=== PATIENT | female | born 1955 | race Two or more races ===

== ENCOUNTER 2025-06-20 08:07 | Outpatient (OUT) | payer BC, MEDICARE, SELFPAY ==
--- NOTE | 2025-06-20 | CT_ITS ---
The [address] [address] Patient Name: JUAN J DAMON MRN: [id number] date: 1955 Sex: F Assigned Patient Location: LAB Current Patient Location: LAB Accession/Order Number: [id number] Exam Date: 06/20/2025 09:54 Report Date: 06/20/2025 10:41 At the request of: SEBAS HARDY MD Procedure: CT abdomen pelvis wo/w con CT ABDOMEN AND PELVIS WITHOUT AND WITH CONTRAST CLINICAL DATA: Abdominal mass on examination. Carcinoid syndrome. COMPARISON: None Spiral images were obtained through the abdomen and pelvis before and after intravenous administration of 100 mL of Omnipaque 300. Patient also received oral contrast. This CT exam was performed using one or more following dose reduction techniques: Automated exposure control, adjustment of the mA and/or kV according to patient size, or use of iterative reconstruction technique. Limited cuts through the lung bases show no contributory pulmonary findings. There is a small hiatal hernia. Fatty infiltration of the liver is present. No calcified gallstones are seen. A 1 cm potential cyst is seen at the posterior inferior spleen. The pancreas and adrenal glands show no acute findings. There are no renal calculi precontrast. Following contrast administration, the renal nephrograms are symmetric. No hydronephrosis is noted. There is mild plaque at the aorta and iliac arteries. There are tiny lymph nodes. No ascites is seen. There is mild air and food debris within the stomach. There is apparent wall thickening at the gastric antrum. There is a small duodenal diverticulum. The small bowel loops are not distended. There is stool within the colon, greater on the right. Slight levoscoliotic curvature and degenerative changes are present at the spine Images through the pelvis show nondistended small bowel with some distal fecalization. The appendix is not definitely seen. There is a small amount of distal colonic stool. No diverticular disease is identified. The uterus is slightly levoverted and there is a lobulated contour and heterogeneity suggesting fibroid change. There is a 5.9 cm hypodense mass at the posterior cul-de-sac on the right. This is not a simple cyst based on Hounsfield measurements. The urinary bladder shows no abnormalities for the degree of distention. No ascites is seen. CT/CT abdomen pelvis wo/w con IMPRESSION: SMALL HIATAL HERNIA. APPARENT WALL THICKENING AT THE GASTRIC ANTRUM. CORRELATION IS RECOMMENDED TO ANY CORRESPONDING SYMPTOMS. FATTY LIVER. NO BOWEL OR URINARY TRACT OBSTRUCTION. SUSPECTED FIBROID UTERUS. MASS AT THE POSTERIOR COSTOPHRENIC ANGLE ON THE RIGHT, LIKELY OVARIAN IN ORIGIN. ULTRASOUND IS RECOMMENDED TO DETERMINE IF SOLID OR COMPLEX CYSTIC. Impression dictated by: Moni Bermeo M.D. 06/20/2025 10:41 AM Dictation Location: [place] [address] Electronically authenticated by: [id number] Y Date: 06/20/2025 10:41
[2025-06-20 08:56] LABS: Estimated GFR (African America >60 (>=60 mL/min/1.73m^2); Estimated GFR (Non-African Ame >60 (>=60 mL/min/1.73m^2)
== END 2025-06-20 08:08 | disposition home or self-care (01) ==
LOC: LAB 08:19
PROVIDERS: PCP Nurse Practitioner; Visit Provider Internal Medicine Cardiovascular Disease
DX: E34.00 Carcinoid syndrome, unspecified (principal)
CPT/HCPCS: 36415; 74178; 82565; 83835; Q9967

== ENCOUNTER 2025-06-25 05:12 | Outpatient (REF) | payer BC, MEDICARE, SELFPAY ==
--- OUTSIDE RECORDS SUMMARY | 2025-06-11 15:40 | XMS_ITS | Encounter Summary ---
Author Organization [facility] Address [address] [place] [address] Care Team Providers Care Avionics Supervisor Name Role Phone Unavailable Primary Care Provider Unavailabl e Reason for Visit * ReasonCommentsNew PatientPatient is here today to establish care as a new patient with cardiology. Patient recently had an abnormal Holter monitor, Patient denies chest pain, palpitations/racing heart, SOB/JOSUE, dizziness/ligh theaded, edemaHot FlashesHypertensionHyperlipidemiaSyncopePatient had a syncopal episode on the toilet Encounter Details DateTypeDepartmentCare Team (Latest Contact Info)Gekoqjcuarf55/10/2025 3:40 PM ESTOffice Visit [facility] [place] [facility] [address] [place] [address] Edgardo Hayes MD [address] [place] [phone] Syncope and collapse (Primary Dx); Hyperthermia; Abdominal mass, right upper quadrant Social History Tobacco UseTypesPacks/DayYears UsedDateSmoking Tobacco: NeverSmokeless Tobacco: Never Tobacco Cessation:Counseling Given: Not Answered CommentsUnknownSex and Gender InformationValueDate RecordedSex Assigned at JmwhdWhbuzw11/10/2025 3:32 PM ESTLegal DpsWwegvl33/13/2025 11:14 AM EDTGender IzhuyqsfAehvfl95/10/2025 3:32 PM ESTSexual OrientationHeterosexual or Straight 06/11/2025 3:32 PM ESTdocumented as of this encounter Last Filed Vital Signs Vital SignReadingTime TakenCommentsBlood Blkhxdme087/8911/05/2025 4:37 PM EST Ouihh6681 4:37 PM ESTTemperature--Respiratory Rate--Oxygen Mdxilniixu10% 06/11/2025 4:37 PM ESTInhaled Oxygen Concentration--Knvuiq24.5 kg (193 lb) 06/11/2025 4:21 PM YZYHonjga432.5 cm (5' 2 )06/11/2025 4:21 PM ESTBody Mass Index35.311 4:21 PM ESTdocumented in this encounter Functional Status * BPAnswerDate of GvhznmmcchRfsvup144/8906/11/2025 4:37 PM Jessica Kingsley MA * PulseAnswerDate of QtxpxisnrdHkafcj7665/10/2025 4:37 PM Jessica Kingsley MA * Audit Alcohol ScreeningQuestionAnswerDate of AssessmentAuthorHow often do you have a drink containing alcohol? 4:37 PM Jessica Kingsley MA * Patient PositionAnswerDate of QvnsjoogyqAdeifbXbleuhqr34/10/2025 4:37 PM Jessica Talavera MA * BPAnswerDate of RyebgyhcbfRxdqkp586/ 4:37 PM Jessica Kingsley MA * PulseAnswerDate of XlwvtjsmsgLoheyu4601/10/2025 4:37 PM Jessica Kingsley MA * JcM9QzfrhePqqs of FxkvzmkjlmBkcjik1270/10/2025 4:37 PM Jessica Kingsley MA * BP LocationAnswerDate of AssessmentAuthorRight arm06/11/2025 4:37 PM Jessica Talavera MA * Audit Alcohol ScreeningQuestionAnswerDate of AssessmentAuthorHow often do you have a drink containing alcohol? 4:37 PM Jessica Kingsley MA * Patient PositionAnswerDate of EcgoclwohbMfghheMttfivgr92/10/2025 4:37 PM Jessica Talavera MA documented as of this encounter Progress Notes * Edgardo Hayes MD - 06/11/2025 3:40 PM EST Subjective Patient ID: Becki Kaur is a 70 y.o. female who presents for New Patient (Patient is here todayto establish care as a new patient with cardiology. Patient recently had an abnormal Holter monitor, Patient denies chest pain, palpitations/racing heart, SOB/JOSUE, dizziness/lightheaded, edema), Hot Flashes, Hypertension, Hyperlipidemia, and Syncope (Patient had a syncopal episode on the toilet). Other than being tired, and not sleeping the way I should, OK No hot spell for 3-weeks now. Start from inside felt extremely hot, would stop taking off clothes. Years past menopause Had hot spells while wearing the monitor. Entire body. Skin not red. Over past several months. Had one sitting on the toilet and fainted. Holter reviewed by me: short bursts paroxysmal SVT without symptoms Hypertension Pertinent negatives include no chest pain or shortness of breath. Hyperlipidemia Pertinent negatives include no chest pain or shortness of breath. Syncope Associated symptoms include dizziness and light-headedness. Pertinent negatives include no chest pain. Review of Systems Respiratory: Positive for cough. Negative for chest tightness and shortness of breath. Cardiovascular: Positive for syncope. Negative for chest pain and leg swelling. Gastrointestinal: Negative for blood in stool. Genitourinary: Negative for hematuria and vaginal bleeding. Neurological: Positive for dizziness, syncope and light-headedness. Objective Visit Vitals BP 139/89 (BP Location: Right arm, Patient Position: Standing) Pulse 74 Physical Exam Constitutional: Appearance: Normal appearance. She is obese. HENT: Head: Normocephalic and atraumatic. Cardiovascular: Rate and Rhythm: Normal rate and regular rhythm. No extrasystoles are present. Chest Wall: PMI is not displaced. No thrill. Pulses: Carotid pulses are 2+ on the right side and 2+ on the left side. Radial pulses are 2+ on the right side and 2+ on the left side. Heart sounds: Normal heart sounds. Heart sounds not distant. No murmur heard. No friction rub. No gallop. Pulmonary: Effort: Pulmonary effort is normal. Breath sounds: Normal breath sounds. Abdominal: General: Abdomen is protuberant. Bowel sounds are normal. There is no distension or abdominal bruit. Palpations: Abdomen is soft. Hernia: No hernia is present. Comments: Fullness R upper abdomen Musculoskeletal: Right lower leg: No edema. Left lower leg: No edema. Skin: General: Skin is warm and dry. Neurological: General: No focal deficit present. Mental Status: She is alert and oriented to person, place, and time. Mental status is at baseline. Psychiatric: Mood and Affect: Mood normal. Behavior: Behavior normal. Thought Content: Thought content normal. Judgment: Judgment normal. EKG today: normal sinus rhythm, normal EKG Assessment/Plan Ms. Kaur has interesting history of intense hot flashes. This was associated with syncope while on toilet. Her Holter was not revealing despite 3-4 episodes during monitoring. These symptoms sound neuroendocrine in nature such as carcinoid syndrome or pheo. Will check urine for: 5-HIAA, metanephrines And plasma metanephrines Obtain CT abdomen with and without contrast Diagnosis Plan 1. Syncope and collapse ECG 12 lead unit performed Orders Placed This Encounter Procedures ECG 12 lead unit performed This back office order was created through the Back Office Visit Navigator section. Release to Patient: Immediately No results found for this or any previous visit (from the past 36 hours). No follow-ups on file. documented in this encounter Plan of Treatment DateTypeDepartmentCare Team (Latest Contact Info)Klruhngosnu02/22/2025 1:00 PM ESTOffice Visit [facility] [place] [facility] [address] [place] [address] Edgardo Hayes MD [address] [place] [phone] documented as of this encounter Procedures Procedure NamePriorityDate/TimeAssociated DiagnosisCommentsECG 12 LEAD UNIT LUTURXQBXMbpuzqg66/10/2025 4:13 PM EST Syncope and collapse documented in this encounter Results * ECG 12 lead unit performed (06/11/2025 4:13 PM EST)Specimen (Source)Anatomical Location / LateralityCollection Method / VolumeCollection TimeReceived Time Narrative Authorizing ProviderResult TypeResult StatusChristopher Freddy TOWNSENDECG ORDERABLES Final Result documented in this encounter Visit Diagnoses Diagnosis Syncope and collapse- Primary Hyperthermia Fever, unspecified Abdominal mass, right upper quadrant Abdominal or pelvic swelling, mass, or lump, right upper quadrant documented in this encounter
--- OUTSIDE RECORDS SUMMARY | 2025-06-11 15:40 | XMS_ITS | Encounter Summary ---
Author Organization [facility] Address [address] [facility] [place] [address] Care Team Providers Care Liability Analyst Name Role Phone Unavailable Primary Care Provider Unavailabl e Reason for Visit * ReasonCommentsNew PatientPatient is here today to establish care as a new patient with cardiology. Patient recently had an abnormal Holter monitor, Patient denies chest pain, palpitations/racing heart, SOB/JOSUE, dizziness/ligh theaded, edemaHot FlashesHypertensionHyperlipidemiaSyncopePatient had a syncopal episode on the toilet Encounter Details DateTypeDepartmentCare Team (Latest Contact Info)Dzdacalmpbo03/10/2025 3:40 PM ESTOffice Visit [facility] [address] [place] [address] Edgardo Hayes MD [address] [place] [phone] Syncope and collapse (Primary Dx); Hyperthermia; Abdominal mass, right upper quadrant Social History Tobacco UseTypesPacks/DayYears UsedDateSmoking Tobacco: NeverSmokeless Tobacco: Never Tobacco Cessation:Counseling Given: Not Answered CommentsUnknownSex and Gender InformationValueDate RecordedSex Assigned at QhyszNxexlg66/10/2025 3:32 PM ESTLegal LhkCtjnzd51/13/2025 11:14 AM EDTGender ClyrmwkhWgiusq91/10/2025 3:32 PM ESTSexual OrientationHeterosexual or Straight 06/11/2025 3:32 PM ESTdocumented as of this encounter Last Filed Vital Signs Vital SignReadingTime TakenCommentsBlood Yfcbmgwi289/8911/05/2025 4:37 PM EST Wqyrt7997 4:37 PM ESTTemperature--Respiratory Rate--Oxygen Jdwuyerfok79% 06/11/2025 4:37 PM ESTInhaled Oxygen Concentration--Pmumfh24.5 kg (193 lb) 06/11/2025 4:21 PM VYQKgbcpq847.5 cm (5' 2 )06/11/2025 4:21 PM ESTBody Mass Index35.311 4:21 PM ESTdocumented in this encounter Functional Status * BPAnswerDate of VsbghvrkfcNycuoh707/8906/11/2025 4:37 PM Jessica Kingsley MA * PulseAnswerDate of BylapxcyveYfjxtl9105/10/2025 4:37 PM Jessica Kingsley MA * Audit Alcohol ScreeningQuestionAnswerDate of AssessmentAuthorHow often do you have a drink containing alcohol? 4:37 PM Jessica Kingsley MA * Patient PositionAnswerDate of IzqppefbckEnudrhNxyofahu53/10/2025 4:37 PM Jessica Talavera MA * BPAnswerDate of FecbwhfrxnTscmlb911/ 4:37 PM Jessica Kingsley MA * PulseAnswerDate of MkdhxxvnflBmeboi5306/10/2025 4:37 PM Jessica Kingsley MA * ShG4FwapzvEmgm of OwxsiwnqefFreaay5564/10/2025 4:37 PM Jessica Kingsley MA * BP LocationAnswerDate of AssessmentAuthorRight arm06/11/2025 4:37 PM Jessica Talavera MA * Audit Alcohol ScreeningQuestionAnswerDate of AssessmentAuthorHow often do you have a drink containing alcohol? 4:37 PM Jessica Kingsley MA * Patient PositionAnswerDate of UgkcweleogUovkfdUkiyphcs85/10/2025 4:37 PM Jessica Talavera MA documented as [...] Plan of Treatment DateTypeDepartmentCare Team (Latest Contact Info)Pgtmofkbwgg91/22/2025 1:00 PM ESTOffice Visit [facility] at [facility] [address] [place] [address] Edgardo Hayes MD [address] [place] [phone] documented as of this encounter Procedures Procedure NamePriorityDate/TimeAssociated DiagnosisCommentsECG 12 LEAD UNIT UVPMCPWOUFzwxclj99/10/2025 4:13 PM EST Syncope and collapse documented [...]
--- OUTSIDE RECORDS SUMMARY | 2025-06-25 06:19 | XMS_ITS | Encounter Summary ---
Author Organization [facility] Address [address] [place] [address] Care Team Providers Care Bench Loom Weaver Name Role Phone Katarzyna Leone OPERATIONS INSPECTOR Unavailable [phone] uGs Reza DO Primary Care Provider [phone] Reason for Visit * ReasonOnset DateCommentsabnormal CT06/20/2025 Encounter Details DateTypeDepartmentCare Team (Latest Contact Info)Ojmyeutfkzr37/19/2025Telephone [facility] [address] [address] [place] [address] Katarzyna Leone NP [address] [facility] [address] [place] [address] Social History Tobacco UseTypesPacks/DayYears UsedDateSmoking Tobacco: NeverAlcohol UseStandard Drinks/WeekCommentsNever0 (1 standard drink = 0.6 oz pure alcohol)B1300 Health LiteracyAnswerDate RecordedHow often do you need to have someone help you when you read instructions, pamphlets, or other written material from your doctor or pharmacy?Never04/05/2024Social Connection and Isolation PanelAnswerDate Recorded In a typical week, how many times do you talk on the phone with family, friends, or neighbors?More than three times a week04/05/2024How often do you get together with friends or relatives?Once a week04/05/2024How often do you attend christian or adventism services?More than 4 times per year04/05/2024o you belong to any clubs or organizations such as christian groups, unions, fraternal or athletic bhargav ups, or school groups?Yes04/05/2024How often do you attend meetings of the clubs or organizations you belong to?More than 4 times per year04/05/2024re you , , , , never , or living with a partner? Fueipbm0604/05/2024UDIT-CAnswerDate RecordedQ1: How often do you have a drink containing alcohol?Monthly or less04/05/2024Q2: How many drinks containing alcohol do you have on a typical day when you are drinking?1 or Q3: How often do you have six or more drinks on one occasion?Never04/05/2024Overall Financial Resource Strain (CARDIA)AnswerDate RecordedHow hard is it for you to pay for the very basics like food, housing, medical care, and heating?Not hard at all04/05/2024HQ-2AnswerDate RecordedPatient Health Questionnaire-2 Score0 04/17/2025[facility] [place] [facility] - Occupational Stress QuestionnaireAnswerDate RecordedDo you feel stress - tense, restless, nervous, or anxious, or unable to sleep at night because yourmind is troubled all the time - these days?Patient cqumzfjw94/04/2024Exercise Vital SignAnswerDate RecordedOn average, how many days per week do you engage in moderate to strenuous exercise (like a brisk walk)?0 days04/05/2024On average, how many minutes do you engage in exercise at this level?0 min04/05/2024Hunger Vital Sign AnswerDate RecordedWithin the past 12 months, you worried that your food would run out before you got the money to buymore.Never true04/05/2024Within the past 12 months, the food you bought just didn't last and you didn't have money to get more.Never true04/05/2024RAPARE - TransportationAnswerDate RecordedIn the past 12 months, has lack of transportation kept you from medical appointments or from getting medications?No04/05/2024In the past 12 months, has lack of transportation kept you from meetings, work, or from getting things needed for daily living?04/05/2024Housing Stability Vital SignAnswerDate RecordedIn the last 12 months, was there a time when you were not able to pay the mortgage or rent on time?04/05/2024In the past 12 months, how many times have you moved where you were living?t any time in the past 12 months, were you homeless or living in a [place] (including now)?04/05/2024Comments UnknownSex and Gender InformationValueDate RecordedSex Assigned at BirthNot on fileLegal LewOhghrn85/15/2023 8:28 PM EDTGender KckgawikCjmjnb48/08/2024 4:54 PM ESTSexual OrientationNot on filedocumented as of this encounter Miscellaneous Notes * Telephone Encounter - Dionna Taylor LPN - 06/22/2025 1:59 PM EST Vm left for pt to call office. Faxed order to [place] unless pt would like to complete elsewhere. * Telephone Encounter - Chantal Wolf MA - 06/22/2025 1:46 PM EST Pt called and stated that cardiology will not place the US order * Telephone Encounter - Dionna Taylor LPN - 06/21/2025 12:15 PM EST Cardiology ordered CT., pt has not spoke with them regarding results and does not have an upcoming appt. Spouse on speaker phone- states that if cardiology initiated testing then they would contact cardiology regarding the follow up testing recommended. Notified pt that if cardiology does not plan on ordering US since it is not cardiology related, that they need to call [facility] for the US order. Voiced understanding. * Telephone Encounter - Katarzyna Leone NP - 06/20/2025 7:27 PM EST I have a CT from [place] which is abnormal I just want to make sure she has follow up with someoneregarding this. They want a pelvic US with transvaginal for mass if she does not have follow up. documented in this encounter Plan of Treatment DateTypeDepartmentCare Team (Latest Contact Info)Afenacpdocz64/17/2026 2:40 PM ESTOffice Visit [facility] [address] [place] [address] Sonam Chavez, LYNDSAY [address] [place] [address] 10/15/2025 2:00 PM EDTOffice Visit [facility] [address] [place] [phone] Katarzyna Leone NP [address] [place] [address] NameTypePriorityAssociated DiagnosesOrder ScheduleUS pelvis transvaginalImaging STAT Pelvic mass in female Expected: 06/22/2025, Expires: 06/22/2026documented as of this encounter Visit Diagnoses Diagnosis Pelvic mass in female- Primary documented in this encounter Care Teams Team MemberRelationshipSpecialtyStart DateEnd Date Katarzyna Leone NP [address] [place] [address] PCP - Denise Mix10/31/20 Gus Reza DO [address] [place] [address] PCP - GeneralFamily Medicine12/08/22documented as of this encounter
--- OUTSIDE RECORDS SUMMARY | 2025-06-25 06:20 | XMS_ITS | Clinical Summary ---
Author Organization [facility] Address [address] [place] [address] Care Team Providers Care Side Framer Name Role Phone Katarzyna Leone AMMONIA BOX OPERATOR Unavailable [phone] Gus Reza DO Primary Care Provider Allergies Active AllergyReactionsCriticalityNoted DateCommentsMeperidineHives,OtherHigh 09/04/2019Meperidine BtiJmowtrn48/08/2021MethohexitalHives,Other,UnknownHigh 09/04/2019MidazolamHives,Other,AfyactrHqzt25/03/2020PenicillinsUnknown,Other 09/08/2011 Stopped breathing Stopped breathing Medications MedicationSigDispense QuantityRefillsLast FilledStart DateEnd DateStatus aspirin 81 MG EC tablet Take 1 tablet by mouth in the morning.Active cholecalciferol (D3-5) 5,000 Units tablet Take 1 tablet by mouth in the morning.Active multivitamin (Theragran) tablet Take 1 tablet by mouth DailyActive venlafaxine XR (Effexor XR) 37.5 MG 24 hr capsule Indications:Hot flashesTake 1 capsule (37.5 mg) by mouth Daily Do not crush or chew. 30 capsule 5Active Additional Information Patient not taking.Reported on 04/17/2025 benazepril (Lotensin) 20 MG tablet Indications:Essential hypertensionTake 1 tablet (20 mg) by mouth Daily 90 tablet 5Active carBAMazepine XR (TEGretol XR) 100 MG 12 hr tablet 5Active atorvastatin (Lipitor) 10 MG tablet Indications:Mixed hyperlipidemiaTAKE 1 TABLET BY MOUTH DAILY 90 tablet 5Active atorvastatin (Lipitor) 10 MG tablet Indications:Mixed hyperlipidemiaTAKE 1 TABLET BY MOUTH DAILY 90 tablet 411/10/2024Discontinued Active Problems ProblemNoted DateDiagnosed DateAbnormal liver cocyofi88/27/2021Constipation 07/31/2020Vitamin D kycoktfjvu44/24/0590Greuvxqpbdtpqq26/15/2019Morbid obesity 08/16/2018Complex partial seizures with consciousness gbkcusip08/14/2019 Essential bwcuhhuyezdj00/14/2019Gastroesophageal reflux disease with esophagitis 08/15/2018Hiatal maaclv2608/15/2018 Overview (03/21/2023): Added automatically from request for surgery [id number] Seborrheic tfxomjmlc95/14/2019Memory loss01/06/2015Focal epilepsy with impairment of cloppwxmzalja08/15/2012 Resolved Problems ProblemNoted DateDiagnosed DateResolved DateEndometrial thickening on ultrasound Spell of visual fapryiocyie77 Overview (03/21/2023): Updating deleted diagnoses Abdominal pain, vhilmedysj21 Overview (03/21/2023): Added automatically from request for surgery [id number] Aiavzzqi18 Overview (03/21/2023): Added automatically from request for surgery [id number] Chronic cough Overview (03/21/2023): Added automatically from request for surgery [id number] Hot vtwflzf13bnormal qaxwxoedc95Muscle spasmNeck painRecurrent seizures FatigueHot flash, oqehmotcdc85/15/2012 03/21/2023 Encounters DateTypeDepartmentCare GhriBebvqactliu22/19/2025Telephone [facility] [place] [address] [place] [address] Katarzyna Leone NP abnormal CT06/20/2025bstract [address] [facility] [place] [address] Katarzyna Leone NP 06/05/2025Refill [address] [facility] [place] [address] Katarzyna Leone NP Mixed ouopninauxcvgt39/10/2025Telephone [address] [place] [address] Katarzyna Leone NP heart monitor dvcreej3405/08/2025Telephone [address] [place] [address] Katarzyna Leone NP negative /16/2025 2:30 PM EDTOffice Visit [facility]S [address] [facility] [place] [address] Katarzyna Leone, [place] Medicare annual wellness visit, subsequent (Primary Dx); Immunization due; Major depressive disorder, single episode, mild ; Localization-related (focal) (partial) symptomatic epilepsy and epileptic syndromes with complex partial seizures, not intractable, without status epilepticus (HCC); Mixed hyperlipidemia ; Hyperglycemia; Encounter for screening for malignant neoplasm of colon; Syncope, unspecified syncope type04/17/2025linisync Result Encounter [facility] External Department Unsolicited Provider, Generic External Data 04/17/2025amboo flowsheet [facility] [address] [place] [address] Katarzyna Leone NP 04/17/20251822Dtfwii84/15/1945Phauzu90/27/2025Telephone [facility] [address] [place] [address] Nayeli Baird MA Lab Ordersfrom Last 3 Months Immunizations ImmunizationAdministration DatesNext DueInfluenza, High Dose Seasonal, Preservative Free04/17/2025,06/16/2024,05/04/2019Influenza, High-dose Seasonal, Quadrivalent, Preservative Free05/15/2023,06/08/2022,05/23/2020Influenza, injectable, quadrivalent, preservative free08/12/2021,06/23/2019,05/31/2018 Influenza, seasonal, injectable, preservative free06/01/2018Pneumococcal Conjugate PCV 13011Pneumococcal Polysaccharide [id number] Family History Medical HistoryRelationNameCommentsDiabetesFatherHeart diseaseFatherMelanoma FatherRelationNameStatusCommentsFatherDeceasedMotherDeceased Social History Tobacco UseTypesPacks/DayYears UsedDateSmoking Tobacco: Never Tobacco Cessation:Counseling Given: Not Answered Alcohol UseStandard Drinks/WeekCommentsNever0 (1 standard drink = 0.6 oz pure alcohol)B1300 Health LiteracyAnswerDate RecordedHow often do you need to have someone help you when you read instructions, pamphlets, or other written material from your doctor or pharmacy?Never04/05/2024Social Connection and Isolation PanelAnswerDate RecordedIn a typical week, how many times do you talk on the phone with family, friends, or neighbors?More than three times a week 04/05/2024How often do you get together with friends or relatives?Once a week 04/05/2024How often do you attend restorationist or episcopalian services?More than 4 times per year04/05/2024o you belong to any clubs or organizations such as restorationist groups, unions, fraternal or athletic groups, or school groups?Yes04/05/2024How often do you attend meetings of the clubs or organizations you belong to?More than 4 times per year04/05/2024re you , , , , never , or living with a partner?Btwgvyd7804/05/2024UDIT-CAnswerDate RecordedQ1: How often do you have a drink containing alcohol?Monthly or less 04/05/2024Q2: How many drinks containing alcohol do you have on a typical day when you are drinking?1 or Q3: How often do you have six or more drinks on one occasion?Never04/05/2024Overall Financial Resource Strain (CARDIA) AnswerDate RecordedHow hard is it for you to pay for the very basics like food, housing, medical care, and heating?Not hard at all04/05/2024HQ-2AnswerDate RecordedPatient Health Questionnaire-2 [facility] [place] [facility] Occup[facility] - Occupational Stress QuestionnaireAnswerDate RecordedDo you feel stress - tense, restless, nervous, or anxious, or unable to sleep at night because yourmind is troubled all the time - these days?Patient declined 04/05/2024Exercise Vital SignAnswerDate RecordedOn average, how many days per week do you engage in moderate to strenuous exercise (like a brisk walk)?0 days 04/05/2024On average, how many minutes do you engage in exercise at this level?0 min04/05/2024Hunger Vital SignAnswerDate RecordedWithin the past 12 months, you worried that your food would run out before you got the money to buymore.Never true04/05/2024Within the past 12 months, the food you bought just didn't last and you didn't have money to get more.Never true04/05/2024RAPARE - TransportationAnswerDate RecordedIn the past 12 months, has lack of transportation kept you from medical appointments or from getting medications?No 04/05/2024In the past 12 months, has lack of transportation kept you from meetings, work, or from getting things needed for daily living?No04/05/2024 Housing Stability Vital SignAnswerDate RecordedIn the last 12 months, was there a time when you were not able to pay the mortgage or rent on time?No04/05/2024In the past 12 months, how many times have you moved where you were living?0 04/05/2024t any time in the past 12 months, were you homeless or living in a halfway (including now)?No04/05/2024CommentsUnknownSex and Gender InformationValueDate RecordedSex Assigned at BirthNot on fileLegal SexFemale 10/14/2022 8:28 PM EDTGender CtvquhhnEkdczo45/08/2024 4:54 PM ESTSexual OrientationNot on file Last Filed Vital Signs Vital SignReadingTime TakenCommentsBlood Pizeynnn399/78004/17/2025 12:57 PM EDT Exuft62966/16/2025 12:57 PM JTSYjtepfqxzep29.7 ??C (96.2 ??F)04/17/2025 12:57 PM EDTRespiratory Rate--Oxygen Hsqjkxocoy62%04/17/2025 12:57 PM EDTInhaled Oxygen Concentration--Hediao41.5 kg (195 lb 3.2 oz)04/17/2025 12:57 PM RAIEjnrrd713 cm (5' 3 )04/17/2025 12:57 PM EDTBody Mass Index34.58004/17/2025 12:57 PM EDT Plan of Treatment DateTypeDepartmentCare Team (Latest Contact Info)Eedkjqucpcu08/17/2026 2:40 PM ESTOffice Visit [facility] [address] [place] [address] Sonam Chavez, LYNDSAY [address] [place] [address] 10/15/2025 2:00 PM EDTOffice Visit [facility] [address] [place] [address] Katarzyna Leone NP [address] [place] [address] [facility] DateLast DoneCommentsCT Kgwdvmaaolqc1954Colonoscopy 1954FIT1954FOBT1954 4883Nnuhfwykpkaok1954OVID-19 Vaccine (2024- season)04/02/20254403Qkionqlgr84/22/88720011/21/2024, 11/21/2024, 04/26/2023, Additional history existsColorectal Cancer Ooyxncyxa10/29/2028 FIT-DNAPneumococcal Vaccine: 65+ JifmyKbrajqwed45/07/2021, 08/12/2019Influenza OndidagAtkgrmunx88/16/2025, 06/16/2024, 05/15/2023, Additional history exists Procedures Procedure NamePriorityDate/TimeAssociated DiagnosisCommentsLAB COLOGUARD?? COLON CANCER IOMFQDTcdgvrf74/29/2025 6:50 AM EDT Encounter for screening for malignant neoplasm of colon MHPT HMRDLKGPHOQHYZpfkkcc80/16/2025 3:41 PM EDT MHPJNtldxvf02/04/2025 7:02 AM EDT URINALYSIS VMOQWXEtddijd05/04/2025 7:02 AM EDT Localization-related (focal) (partial) symptomatic epilepsy and epileptic syndromes with complex partial seizures, not intractable, without status epilepticus (HCC) Mixed hyperlipidemia Hyperglycemia MICROALBUMIN / CREATININE URINE YUMTWOupbzlm66/04/2025 7:02 AM EDT Localization-related (focal) (partial) symptomatic epilepsy and epileptic syndromes with complex partial seizures, not intractable, without status epilepticus (HCC) Mixed hyperlipidemia Hyperglycemia LIPID ZFOZIWbjzwlx35/04/2025 7:02 AM EDT Localization-related (focal) (partial) symptomatic epilepsy and epileptic syndromes with complex partial seizures, not intractable, without status epilepticus (HCC) Mixed hyperlipidemia Hyperglycemia QPCMoxrzud82/04/2025 7:02 AM EDT Localization-related (focal) (partial) symptomatic epilepsy and epileptic syndromes with complex partial seizures, not intractable, without status epilepticus (HCC) Mixed hyperlipidemia Hyperglycemia HEMOGLOBIN G5POcidvkj68/04/2025 7:02 AM EDT Localization-related (focal) (partial) symptomatic epilepsy and epileptic syndromes with complex partial seizures, not intractable, without status epilepticus (HCC) Mixed hyperlipidemia Hyperglycemia COMPREHENSIVE METABOLIC EYVUFCtiedfj31/04/2025 7:02 AM EDT Localization-related (focal) (partial) symptomatic epilepsy and epileptic syndromes with complex partial seizures, not intractable, without status epilepticus (HCC) Mixed hyperlipidemia Hyperglycemia CBC (INCLUDES DIFF/PLT)Osdtxip0904/05/2025 7:02 AM EDT Localization-related (focal) (partial) symptomatic epilepsy and epileptic syndromes with complex partial seizures, not intractable, without status epilepticus (HCC) Mixed hyperlipidemia Hyperglycemia BI MAMMOGRAM SCREENING LMWOTFBZOIetorxn61/22/2023 1:09 PM EDT Encounter for screening mammogram for malignant neoplasm of breast from Last 3 Months or Most Recently Relevant to Health Maintenance Results * Cologuard?? colon cancer screening (04/30/2025 6:50 AM EDT)ComponentValueRef RangeTest MethodAnalysis TimePerformed AtPathologist SignatureNONINV COLON CA DNA+OCC BLD SCRN STL-NLLHsmegwimGheowhvf42/07/2025 5:00 AM EDTEXInfusion Medical ([place] #:[id number])Comment: The Cologuard (TM) test was performed on this specimen. NEGATIVE TEST RESULT. A negative Cologuard result indicates a low likelihood that a colorectal cancer (CRC) or advanced adenoma (adenomatous polyps with more advanced pre-malignant features) is present. The chance that a person with a negative Cologuard test has a colorectal cancer is less than 1 in 1500 (negative predictive value >99.9%) or has an advanced adenoma is less than 5.3% (negative predictive value 94.7%). These data are based on a prospective cross-sectional study of 10,000 individuals at average risk for colorectal cancer who were screened with both Cologuard and colonoscopy. (Rich Morin al, N Engl J Med 2014;370(14):2088-4843) The normal value (reference range) for this assay is negative. COLOGUARD RE-SCREENING RECOMMENDATION: Periodic colorectal cancer screening is an important part ofpreventive healthcare for asymptomatic individuals at average risk for colorectal cancer. Followinga negative Cologuard result, the [place] [employer] and U.S. Multi-Society Task Force screening guidelines recommend a Cologuard re-screening interval of 3 years. References: [place] [employer] Guideline for Colorectal Cancer Screening: https://www.cancer.or g/cancer/acfwa-ixppzp-dhsioi/lkvgvudat-zduqukvmr-xafpnja/acs-recommendations.htm layla; Darren CORONA, Gopal BENITEZ, Kaylah XiaoK, Colorectal Cancer Screening: Recommendations for Physicians and Patients from the U.S. Multi-Society Task Force on Colorectal Cancer Screening , Am J Gastroenterology 2017; 112:5531-5798. TEST DESCRIPTION: Composite algorithmic analysis of stool DNA-biomarkers with hemoglobin immunoassay. ?? Quantitative values of individual biomarkers are not reportable and are not associated with individual biomarker result reference ranges. Cologuard is intended for colorectal cancer screening ofadults of either sex, 45 years or older, who are at average-risk for colorectal cancer (CRC). Cologuard has been approved for use by the U.S. FDA. The performance of Cologuard was established in a cross sectional study of average-risk adults aged 50-84. Cologuard performance in patients ages 45 to 49 years was estimated by sub-group analysis of near-age groups. Colonoscopies performed for a positive result may find as the most clinically significant lesion: colorectal cancer [4.0%], advanced adenoma (including sessile serrated polyps greater than or equal to 1cm diameter) [20%] or non- advanced adenoma [31%]; or no colorectal neoplasia [45%]. These estimates are derived from a prospective cross-sectional screening study of 10,000 individuals at average risk for colorectal cancer who were screened with both Cologuard and colonoscopy. (Rich Oliveira, N Engl J Med 2014;370(14):9705-4578.) Cologuard may produce a false negative or false positive result (no colorectal cancer or precancerous polyp present at colonoscopy follow up). A negative Cologuard test result does not guarantee the absence of CRC or advanced adenoma (pre-cancer). The current Cologuard screening interval is every 3 years. ([place] [employer] and U.S. Multi-Society Task Force). Cologuard performance data in a 10,000 patient pivotal study using colonoscopy as the reference method can be accessed at the following location: www.[employer].Affinity/results. Additional description of the Cologuard test process, warnings and precautions can be found at www.cologuard.com. Specimen (Source)Anatomical Location / LateralityCollection Method / Volume Collection TimeReceived TimeStool specimen (specimen)04/30/2025 6:50 AM EDT 05/03/2025 11:15 AM EDT Narrative Authorizing ProviderResult TypeResult StatusRachel E Fruth NPLAB MOLECULAR DIAGNOSTICS ORDERABLESFinal ResultPerforming OrganizationAddressCity/State/ZIP CodePhone Number [employer] (CLIA #:[id number]) [place] [address], * MHPT CARBAMAZEPINE (04/17/2025 3:41 PM EDT)ComponentValueRef RangeTest Method Analysis TimePerformed AtPathologist SignatureMHPT CARBAMAZEPINE5.74.0 - 12.0 ug/mLMHPTMHPT DOSE AMOUNT,UnknownMHPTMHPT DATE LAST DOSE,UnknownMHPTMHPT TIME LAST DOSE,UnknownMHPTSpecimen (Source)Anatomical Location / Laterality Collection Method / VolumeCollection TimeReceived Time04/17/2025 3:41 PM EDT 04/17/2025 3:42 PM EDT Narrative [facility] - 04/18/2025 1:02 AM EDT Original Ordering Provider: MICH HOFFMAN Authorizing ProviderResult TypeResult StatusGeneric External Data Provider CLINISYNCFinal ResultPerforming OrganizationAddressCity/State/ZIP CodePhone Number [facility] MHPT * NOTE (04/05/2025 7:02 AM EDT)ComponentValueRef RangeTest MethodAnalysis Time Performed AtPathologist SignatureNOTEQUESTComment: This urine was analyzed for the presence of WBC, RBC, bacteria, casts, and other formed elements. Only those elements seen were reported. Specimen (Source)Anatomical Location / LateralityCollection Method / Volume Collection TimeReceived Time04/05/2025 7:02 AM EDT04/05/2025 7:03 AM EDT Narrative [facility] - 04/06/2025 11:20 AM EDT FASTING:YES FASTING: YES Resulting Agency Comment Performing Organization Information ?Site ID: QPT ?Name: [facility] ?Address: [address] [place] [address], [address] [place] [address] ?Director: Raul Negron MD Authorizing ProviderResult TypeResult StatusRachel E Fruth NPQUESTFinal Result Performing OrganizationAddressCity/State/[facility] CodePhone Number [facility] * Microalbumin / creatinine urine ratio (04/05/2025 7:02 AM EDT)ComponentValue Ref RangeTest MethodAnalysis TimePerformed AtPathologist SignatureCREATININE, RANDOM KZGSO26846 - 275 mg/dLQUESTALBUMIN, URINE0.4See Note: mg/dLQUEST Comment: Reference Range: Reference Range Not established ALBUMIN/CREATININE RATIO, RANDOM URINE4<30 mg/g creatQUESTComment: The ADA defines abnormalities in albumin excretion as follows: Albuminuria Category ?Result (mg/g creatinine) Normal to Mildly increased <30 Moderately increased ? 30-299 Severely increased > OR = 300 The ADA recommends that at least two of three specimens collected within a 3-6 month period be abnormal before considering a patient to be within a diagnostic category. Specimen (Source)Anatomical Location / LateralityCollection Method / Volume Collection TimeReceived TimeUrineUrine specimen obtained by clean catch procedure / Kckgwfd4804/05/2025 7:02 AM EDT04/05/2025 7:03 AM EDT Narrative [facility] - 04/06/2025 11:20 AM EDT FASTING:YES FASTING: YES Resulting Agency Comment Performing Organization Information ?Site ID: QPT ?Name: [facility] ?Address: [address] [place] [address], [address] [place] [phone] ?Director: Raul Negron MD Authorizing ProviderResult TypeResult StatusRachel E Fruth NPLAB URINE ORDERABLESFinal ResultPerforming OrganizationAddressCity/State/ZIP CodePhone Number [facility] * (ABNORMAL) Urinalysis with reflex microscopic (04/05/2025 7:02 AM EDT) ComponentValueRef RangeTest MethodAnalysis TimePerformed AtPathologist SignatureCOLORYELLOWYELLOWQUESTAPPEARANCECLEARCLEARQUESTSPECIFIC GRAVITY1.014 1.001 - 1.876PRDHSID3.55.0 - 8.0QUESTGLUCOSENEGATIVENEGATIVEQUESTBILIRUBIN NEGATIVENEGATIVEQUESTKETONESNEGATIVENEGATIVEQUESTOCCULT BLOODNEGATIVENEGATIVE QUESTPROTEINNEGATIVENEGATIVEQUESTNITRITENEGATIVENEGATIVEQUESTLEUKOCYTE ESTERASE3+(A)MNTBQREEUMLGPURP66-11(A)< OR = 5 /HPFQUESTRBCNONE SEEN< OR = 2 /HPFQUESTSQUAMOUS EPITHELIAL CELLS6-10(A)< OR = 5 /HPFQUESTBACTERIANONE SEEN NONE SEEN /HPFQUESTHYALINE CASTNONE SEENNONE SEEN /LPFQUESTSpecimen (Source) Anatomical Location / LateralityCollection Method / VolumeCollection Time Received TimeUrineUrine specimen obtained by clean catch procedure / Unknown 04/05/2025 7:02 AM EDT04/05/2025 7:03 AM EDT Narrative [facility] - 04/06/2025 11:20 AM EDT FASTING:YES FASTING: YES Resulting Agency Comment Performing Organization Information ?Site ID: QPT ?Name: [facility] ?Address: [address] [place] [phone] ?Director: Raul Negron MD Authorizing ProviderResult TypeResult StatusRachel E Fruth NPLAB URINE ORDERABLESFinal ResultPerforming OrganizationAddressCity/State/ZIP CodePhone Number [facility] * CBC and differential (04/05/2025 7:02 AM EDT)ComponentValueRef RangeTest MethodAnalysis TimePerformed AtPathologist SignatureWHITE BLOOD CELL COUNT6.1 3.8 - 10.8 Thousand/uLQUESTRED BLOOD CELL COUNT4.083.80 - 5.10 Million/uLQUEST IPSARYEFQR20.211.7 - 15.5 g/iAOVGGFMGLNPCYHWF32.135.0 - 45.0 %ULXYJTIW14.480.0 - 100.0 sUMMGOPUUW21.927.0 - 33.0 hsDTQAEBABO13.032.0 - 36.0 g/dLQUEST Comment: For adults, a slight decrease in the calculated MCHC value (in the range of 30 to 32 g/dL) is most likely not clinically significant; however, it should be interpreted with caution in correlation with other red cell parameters and the patient's clinical condition. RDW12.811.0 - 15.0 %QUESTPLATELET XVGJY616672 - 400 Thousand/uSIRVBKROU06.07.5 - 12.5 fLQUESTABSOLUTE NEUTROPHILS2,9951,500 - 7,800 cells/uLQUESTABSOLUTE LYMPHOCYTES2,964817 - 3,900 cells/uLQUESTABSOLUTE DKLFQMHEF345986 - 950 cells/uL QUESTABSOLUTE ROZTUZXZPEY97595 - 500 cells/uLQUESTABSOLUTE AOLPXVFJN630 - 200 cells/qVHGYMMMSQZJAIWMRK67.1%YXXELFUSNKDRJIGO79.8%QUESTMONOCYTES7.8%QUEST EOSINOPHILS3.6%QUESTBASOPHILS0.7%QUESTSpecimen (Source)Anatomical Location / LateralityCollection Method / VolumeCollection TimeReceived TimeBloodVenous blood specimen / Ygnzmlq2004/05/2025 7:02 AM EDT04/05/2025 7:03 AM EDT Narrative [facility] - 04/06/2025 11:20 AM EDT FASTING:YES FASTING: YES Resulting Agency Comment Performing Organization Information ?Site ID: QPT ?Name: [facility] ?Address: [address] [place] [phone] ?Director: Raul Negron MD Authorizing ProviderResult TypeResult StatusRachel E Fruth NPLAB BLOOD ORDERABLESFinal ResultPerforming OrganizationAddressCity/State/ZIP CodePhone Number [facility] * TSH (04/05/2025 7:02 AM EDT)ComponentValueRef RangeTest MethodAnalysis Time Performed AtPathologist SignatureTSH1.590.40 - 4.50 mIU/LQUESTSpecimen (Source)Anatomical Location / LateralityCollection Method / VolumeCollection TimeReceived TimeBloodVenous blood specimen / Gqpycre8204/05/2025 7:02 AM EDT 04/05/2025 7:03 AM EDT Narrative [facility] - 04/06/2025 11:20 AM EDT FASTING:YES FASTING: YES Resulting Agency Comment Performing Organization Information ?Site ID: QPT ?Name: [facility] ?Address: [address] [place] [address], [address] [place] [address] ?Director: Raul Negron MD Authorizing ProviderResult TypeResult StatusRachel E Fruth NPLAB BLOOD ORDERABLESFinal ResultPerforming OrganizationAddressCity/State/ZIP CodePhone Number [facility] * (ABNORMAL) Hemoglobin A1c (04/05/2025 7:02 AM EDT)ComponentValueRef RangeTest MethodAnalysis TimePerformed AtPathologist SignatureHemoglobin A1C5.9(H)<5.7 % QUESTComment: For someone without known diabetes, a hemoglobin A1c value between 5.7% and 6.4% is consistent with prediabetes and should be confirmed with a follow-up test. For someone with known diabetes, a value <7% indicates that their diabetes is well controlled. A1c targets should be individualized based on duration of diabetes, age, comorbid conditions, and other considerations. This assay result is consistent with an increased risk of diabetes. Currently, no consensus exists regarding use of hemoglobin A1c for diagnosis of diabetes for children. Specimen (Source)Anatomical Location / LateralityCollection Method / Volume Collection TimeReceived TimeBloodVenous blood specimen / Oefalhy2504/05/2025 7:02 AM EDT04/05/2025 7:03 AM EDT Narrative [facility] - 04/06/2025 11:20 AM EDT FASTING:YES FASTING: YES Resulting Agency Comment Performing Organization Information ?Site ID: QPT ?Name: [facility] ?Address: [address] [place] [address], [address] [place] [address] ?Director: Raul Negron MD Authorizing ProviderResult TypeResult StatusRachel E Fruth NPLAB BLOOD ORDERABLESFinal ResultPerforming OrganizationAddressCity/State/ZIP CodePhone Number [facility] * Lipid panel (04/05/2025 7:02 AM EDT)ComponentValueRef RangeTest MethodAnalysis TimePerformed AtPathologist SignatureCHOLESTEROL, EDJFH301<200 mg/dLQUESTHDL CDLPOJIONNY23> OR = 50 mg/kRXDPIKWSYYVBSGPRHVB13<150 mg/dLQUESTLDL CHOLESTEROL 66mg/dL (calc)QUESTComment: Reference range: <100 Desirable range <100 mg/dL for primary prevention; <70 mg/dL for patients with CHD or diabetic patients with > or = 2 CHD risk factors. LDL-C is now calculated using the Malcolm calculation, which is a validated novel method providing better accuracy than the Friedewald equation in the estimation of LDL-C. Luís SS et al. SALUD. 2013;310(19): 5462-7614 (http://education.[employer].Affinity/faq/VRA973) CHOL/HDLC RATIO2.2<5.0 (calc)QUESTNON HDL OMELMRYGVUT31<130 mg/dL (calc)QUEST Comment: For patients with diabetes plus 1 major ASCVD risk factor, treating to a non-HDL-C goal of <100 mg/dL (LDL-C of <70 mg/dL) is considered a therapeutic option. Specimen (Source)Anatomical Location / LateralityCollection Method / Volume Collection TimeReceived TimeBloodVenous blood specimen / Ekpzmyt0704/05/2025 7:02 AM EDT04/05/2025 7:03 AM EDT Narrative [facility] - 04/06/2025 11:20 AM EDT FASTING:YES FASTING: YES Resulting Agency Comment Performing Organization Information ?Site ID: [id number] ?Name: [facility] ?Address: [address] [place] [address], [address] [place] [id number] ?Director: Raul Negron MD Authorizing ProviderResult TypeResult StatusRachel E Fruth NPLAB BLOOD ORDERABLESFinal ResultPerforming OrganizationAddressCity/State/ZIP CodePhone Number [facility] * (ABNORMAL) Comprehensive metabolic panel (04/05/2025 7:02 AM EDT)Component ValueRef RangeTest MethodAnalysis TimePerformed AtPathologist SignatureGlucose 9865 - 99 mg/dLQUESTComment: ? Fasting reference interval BUN87 - 25 mg/dLQUESTCreatinine0.630.60 - 1.00 mg/tVRRFBZRUVE82> OR = 60 mL/min/1.52n1FSGXIOIA/CREATININE RATIOSEE NOTE: (calc)QUESTComment: ?? Not Reported: BUN and Creatinine are within ?? reference range. ? Rltmzi136111 - 146 mmol/LQUESTPotassium, Bld4.83.5 - 5.3 mmol/HKYGTHIfvolaym716 98 - 110 mmol/LQUESTCarbon Zpugacq2287 - 32 mmol/LQUESTCalcium9.28.6 - 10.4 mg/dLQUESTPROTEIN, TOTAL6.56.1 - 8.1 g/dLQUESTALBUMIN4.03.6 - 5.1 g/dLQUEST GLOBULIN2.51.9 - 3.7 g/dL (calc)QUESTALBUMIN/GLOBULIN RATIO1.61.0 - 2.5 (calc) QUESTBILIRUBIN, TOTAL0.30.2 - 1.2 mg/dLQUESTALKALINE PBVLQGFNGUI585(H)37 - 153 U/IRHGBLUMC4904 - 35 U/BBSKFBEOJ283 - 29 U/LQUESTSpecimen (Source)Anatomical Location / LateralityCollection Method / VolumeCollection TimeReceived TimeBlood Venous blood specimen / Wtawwsu3804/05/2025 7:02 AM EDT04/05/2025 7:03 AM EDT Narrative [facility] - 04/06/2025 11:20 AM EDT FASTING:YES FASTING: YES Resulting Agency Comment Performing Organization Information ?Site ID: [id number] ?Name: [facility] ?Address: [address] [place] [address], [address] [place] [id number] ?Director: Raul Negron MD Authorizing ProviderResult TypeResult StatusRachel E Fruth NPLAB BLOOD ORDERABLESFinal ResultPerforming OrganizationAddressCity/State/ZIP CodePhone Number [facility]ST * Bilateral screening mammogram (04/23/2023 1:09 PM EDT)Anatomical Region LateralityModalityBreastBilateralMammography Narrative Authorizing ProviderResult TypeResult StatusRachel E Fruth NPIMG BI PROCEDURES Final Result from Last 3 Months or Most Recently Relevant to Health Maintenance Insurance * Guarantor: Becki Kaur EAccount TypeRelation to PatientDate of BirthPhone Billing AddressPersonal/IndsegUrkl1955 [address] [address] MemberSubscriberPlan / Payer (Effective 2018-Present)Name:Becki Kaur Relation to Subscriber:SpouseName:JESUS KAUR Date of :1952 (Home) Address: [address] [address] Payer ID:Not on file Type:Not on file Address: [place] [id number] Care Teams Team MemberRelationshipSpecialtyStart DateEnd Date Katarzyna Leone NP [address] [place] [address] PCP - Denise Mix10/31/20 Gus Reza DO [address] [place] [id number] PCP - GeneralFamily Medicine12/08/22
--- OUTSIDE RECORDS SUMMARY | 2025-06-25 06:20 | XMS_ITS | Encounter Summary ---
Author Organization [facility] Address [address] [place] [address] Care Team Providers Care Sliding Joint Maker Name Role Phone Unavailable Primary Care Provider Unavailabl e Reason for Referral * Imaging (Routine) - Pending ReviewSpecialtyDiagnoses / ProceduresReferred By ContactReferred To Contact Diagnoses Carcinoid syndrome (CMS/HCC) Procedures CT abdomen pelvis w and wo IV contrast Edgardo Hayes MD [address] [place] [address] Phone: tel: fax: Referral IDStatusReasonStart DateExpiration DateVisits RequestedVisits [id number] Encounter Details DateTypeDepartmentCare Team (Latest Contact Info)Izbiojfeflt41/10/2025Orders Only [facility] [address] [place] [address] Anastasiia Villegas MA Carcinoid syndrome (CMS/HCC) (Primary Dx) Social History Tobacco UseTypesPacks/DayYears UsedDateSmoking Tobacco: NeverSmokeless Tobacco: NeverCommentsUnknownSex and Gender InformationValueDate RecordedSex Assigned at XtlhsSdrvfr56/10/2025 3:32 PM ESTLegal UumYxzsou80/13/2025 11:14 AM EDTGender GwsivfukLcdtkn40/10/2025 3:32 PM ESTSexual OrientationHeterosexual or Qgqzbpbm36/10/2025 3:32 PM ESTdocumented as of this encounter Functional Status * BPAnswerDate of SmhpzchmswPqurht554/8911/05/2025 4:37 PM Jessica Kingsley MA * PulseAnswerDate of WljwjjzeovQbnudk1406 4:37 PM Jessica Kingsley MA * Audit Alcohol ScreeningQuestionAnswerDate of AssessmentAuthorHow often do you have a drink containing alcohol? 4:37 PM Jessica Kingsley MA * Patient PositionAnswerDate of WczabpcvilNngjxlMgahwhhn13/10/2025 4:37 PM Jessica Talavera MA * BPAnswerDate of AjkuzeycmrYyglmy489/8906/11/2025 4:37 PM Jessica Kingsley MA * PulseAnswerDate of SzvgojynshYnsivt4708/10/2025 4:37 PM Jessica Kingsley MA * JvR9XarrhuAkeg of QxjdpbjukqZuavye3021/10/2025 4:37 PM Jessica Kingsley MA * BP LocationAnswerDate of AssessmentAuthorRight arm06/11/2025 4:37 PM Jessica Talavera MA * Audit Alcohol ScreeningQuestionAnswerDate of AssessmentAuthorHow often do you have a drink containing alcohol? 4:37 PM Jessica Kingsley MA * Patient PositionAnswerDate of HtcrcxrqfwHnwjlyNkgzjcof01/10/2025 4:37 PM Jessica Talavera MA documented as of this encounter Plan of Treatment DateTypeDepartmentCare Team (Latest Contact Info)Jhzhoyskeag18/22/2025 1:00 PM ESTOffice Visit [facility] [address] [place] [address] Edgardo Hayes MD [address] [place] [address] NameTypePriorityAssociated DiagnosesOrder Schedule5 HIAA, urine, quantitativeLab Routine Carcinoid syndrome (CMS/HCC) Expected: 06/11/2025 (Approximate), Expires: 06/11/2026Metanephrines, urineLab Routine Carcinoid syndrome (CMS/HCC) Expected: 06/11/2025 (Approximate), Expires: 06/11/2026Metanephrines PlasmaLab Routine Carcinoid syndrome (CMS/HCC) Expected: 06/11/2025 (Approximate), Expires: 06/11/2026reatinine, SerumLab Routine Carcinoid syndrome (CMS/HCC) Expected: 06/11/2025 (Approximate), Expires: 06/11/2026documented as of this encounter Results * CT abdomen pelvis w and wo IV contrast (06/20/2025 11:49 AM EST)Anatomical RegionLateralityModalityBody, Pelvis, AbdomenComputed Tomography Narrative Authorizing ProviderResult TypeResult StatusChristopher Freddy MDIMG CT PROCEDURESFinal Result documented in this encounter Visit Diagnoses Diagnosis Carcinoid syndrome (CMS/HCC)- Primary Carcinoid syndrome documented in this encounter
--- OUTSIDE RECORDS SUMMARY | 2025-06-25 06:20 | XMS_ITS | Clinical Summary ---
Author Organization [facility] Address [address] [place] [address] Care Team Providers Care Map Maker Name Role Phone Katarzyna Leone MD Primary Care Provider [phone] Allergies Active AllergyReactionsCriticalityNoted DateCommentsMeperidineHives,Other, EkcjafoYnst97/03/2020MethohexitalHives,Other,EnhfxtpNjej36/03/2020MidazolamHives ,Other,AzjihxlZqne19/03/2020PenicillinsOther,Bxxcasv9309/08/2011 Stopped breathing Stopped breathing Stopped breathing Stopped breathing Medications MedicationSigDispense QuantityRefillsLast FilledStart DateEnd DateStatus atorvastatin (Lipitor) 10 mg tablet Take 10 mg by mouth in the morning.2Active benazepril (Lotensin) 20 mg tablet Take 20 mg by mouth in the morning.5Active carBAMazepine XR (TEGretol XR) 100 mg 12 hr tablet Take 100 mg by mouth two times daily.5Active aspirin 81 mg EC tablet Take 81 mg by mouth in the morning.Active uwnshiprequd-xxv-pzms-FA-vit K 18 mg iron-400 mcg-25 mcg tablet Take 200 mg by mouth 1 (one) time each day.Active zinc gluconate 50 mg tablet Take 50 mg by mouth in the morning.Active calcium carbonate-vitamin D3 500 mg-5 mcg (200 unit) tablet Take 1 tablet by mouth in the morning.Active Active Problems ProblemNoted DateDiagnosed DateEndometrial thickening on clrnzbiuxi88/10/2025 Spell of visual vdbisvhokwc46/10/2025 Overview (06/11/2025): Updating deleted diagnoses Abdominal pain, entcrrxwmi88/17/2022 Overview (06/11/2025): Added automatically from request for surgery [id number] Ulcvzvtt19/17/2022 Overview (06/11/2025): Added automatically from request for surgery [id number] Chronic cough03/18/2022 Overview (06/11/2025): Added automatically from request for surgery [id number] Abnormal liver sqoacii90/27/9405Faosannlmafg77/30/2020Vitamin D deficiency 08/25/20183263Vlcotfyzfbhlpx54/15/2019Morbid jzarhbq4408/16/2018Essential hypertension 08/15/2018Gastroesophageal reflux disease with qxrvdwousif91/14/2019Hiatal skuyly0208/15/2018 Overview (06/11/2025): Added automatically from request for surgery [id number] Seborrheic /14/2019Muscle spasm02/09/2017Neck pain02/09/2017Recurrent ebmltbav40/02/2016Memory loss01/06/20151193Cjyeaaz55/01/2014Complex partial seizures with consciousness jpuejbor39/15/2012Partial epilepsy with impairment of consciousness, rudbprdvolu04/15/2012Hot flash, ixlhznhbql39/15/2012 Encounters DateTypeDepartmentCare VsuvDggiiorghrd42/19/2025Orders Only [facility] [address] [place] [facility] [place] [address] Vanna Smith MD Carcinoid syndrome (CMS/HCC)06/11/2025 3:40 PM ESTOffice Visit [facility] [address] [place] [facility] [place] [address] Edgardo Hayes MD Syncope and collapse (Primary Dx); Hyperthermia; Abdominal mass, right upper wcvucvay49/10/2025Orders Only [facility] [address] [place] [facility] [address] Anastasiia Villegas MA Carcinoid syndrome (CMS/HCC) (Primary Dx)from Last 3 Months Family History Medical HistoryRelationNameCommentsHeart diseaseBrotherCancerFatherHeart disease FatherCancerSisterRelationNameStatusCommentsBrotherFatherDeceasedMotherDeceased Sister Social History Tobacco UseTypesPacks/DayYears UsedDateSmoking Tobacco: NeverSmokeless Tobacco: Never Tobacco Cessation:Counseling Given: Not Answered CommentsUnknownSex and Gender InformationValueDate RecordedSex Assigned at DwbxpPhejlx14/10/2025 3:32 PM ESTLegal HpfRjtnvl89/13/2025 11:14 AM EDTGender FqcwdxlbHquifb06/10/2025 3:32 PM ESTSexual OrientationHeterosexual or Straight 06/11/2025 3:32 PM EST Last Filed Vital Signs Vital SignReadingTime TakenCommentsBlood Erdusvvb569/8906/11/2025 4:37 PM EST Gcpez684906/11/2025 4:37 PM ESTTemperature--Respiratory Rate--Oxygen Ngrkgwembv39% 06/11/2025 4:37 PM ESTInhaled Oxygen Concentration--Hiazpq16.5 kg (193 lb) 06/11/2025 4:21 PM VFIQsaxfw185.5 cm (5' 2 )06/11/2025 4:21 PM ESTBody Mass Index35.311 4:21 PM EST Plan of Treatment DateTypeDepartmentCare Team (Latest Contact Info)Nmrvpuxfift85/22/2025 1:00 PM ESTOffice Visit [facility] [address] [place] [address] Edgardo Hayes MD [address] [place] [address] Health MaintenanceDue DateLast DoneCommentsCT Lxoinfnslrlj1955Colonoscopy 1955FOBT1955 8561Okbhdrtyoioli1954Depression Eiejgckuv23/21/1966 Adult Cokwqyk4402/20/1976Zoster Vaccines (1 of 2)02/20/2004Fall Risk Screening 2019COVID-19 Vaccine ( season)2025FIT/ Ekkcbkmnc64, 04/23/2023olorectal Cancer Smbzayqpq92/29/2028 FIT-DNAPneumococcal Vaccine: 50+ EolwjWjtetuior31/07/2021, 08/12/2019Influenza HfysrzlAhemjsfrh60/16/2025, 06/16/2024, 05/15/2023, Additional history existsHIB VaccinesAged OutNo longer eligible based on patient's age to complete this topicHPV VaccinesAged OutNo longer eligible based on patient's age to complete this topicIPV VaccinesAged OutNo longer eligible based on patient's age to complete this topicMeningococcal B VaccineAged OutNo longer eligible based on patient's age to complete this topicMeningococcal VaccineAged OutNo longer eligible based on patient's age to complete this topic Rotavirus VaccinesAged OutNo longer eligible based on patient's age to complete this topic Procedures Procedure NamePriorityDate/TimeAssociated DiagnosisCommentsCT ABDOMEN PELVIS W AND WO IV HNRXENVYKgjucjt85/19/2025 11:49 AM EST Carcinoid syndrome (CMS/HCC) ECG 12 LEAD UNIT IVDOFYJUCChxqtyq02/10/2025 4:13 PM EST Syncope and collapse from Last 3 Months Results * CT abdomen pelvis w and wo IV contrast (06/20/2025 11:49 AM EST)Anatomical RegionLateralityModalityBody, Pelvis, AbdomenComputed Tomography Narrative Authorizing ProviderResult TypeResult StatusChsultana Hayes MDIMG CT PROCEDURESFinal Result * ECG 12 lead unit performed (06/11/2025 4:13 PM EST)Specimen (Source)Anatomical Location / LateralityCollection Method / VolumeCollection TimeReceived Time Narrative Authorizing ProviderResult TypeResult StatusChsultana Hayes MDECG ORDERABLES Final Result from Last 3 Months Insurance Care Teams Team MemberRelationshipSpecialtyStart DateEnd Date Katarzyna Leone MD [address] [place] [address] PCP - Przvbyz00/12/25
--- OUTSIDE RECORDS SUMMARY | 2025-06-25 06:20 | XMS_ITS | Encounter Summary ---
Author Organization [facility] Address [address] [place] [address] Care Team Providers Care Time Broker Name Role Phone Katarzyna Leone MD Primary Care Provider [phone] Encounter Details DateTypeDepartmentCare Team (Latest Contact Info)Igjskhognjb87/19/2025Orders Only [facility] [address] [place] [address] ProviderVanna MD [address] [place] [address] Carcinoid syndrome (CMS/HCC) Social History Tobacco UseTypesPacks/DayYears UsedDateSmoking Tobacco: NeverSmokeless Tobacco: NeverCommentsUnknownSex and Gender InformationValueDate RecordedSex Assigned at BsfeyWfquzx30/10/2025 3:32 PM ESTLegal QulGkylja00/13/2025 11:14 AM EDTGender KcmasyehJkghgj99/10/2025 3:32 PM ESTSexual OrientationHeterosexual or Dbkuanmq70/10/2025 3:32 PM ESTdocumented as of this encounter Plan of Treatment DateTypeDepartmentCare Team (Latest Contact Info)Ginpxninlsz93/22/2025 1:00 PM ESTOffice Visit [facility] [address] [place] [address] Edgardo Hayes MD [address] [place] [address] documented as of this encounter Procedures Procedure NamePriorityDate/TimeAssociated DiagnosisCommentsCT ABDOMEN PELVIS W AND WO IV STYNSWLGZhvbbsj19/19/2025 11:49 AM EST Carcinoid syndrome (CMS/HCC) documented in this encounter Results * CT abdomen pelvis w and wo IV contrast (06/20/2025 11:49 AM EST)Anatomical RegionLateralityModalityBody, Pelvis, AbdomenComputed Tomography Narrative Authorizing ProviderResult TypeResult StatusChristopher Freddy TOWNSENDIMG CT PROCEDURESFinal Result documented in this encounter Visit Diagnoses Diagnosis Carcinoid syndrome (CMS/HCC) Carcinoid syndrome documented in this encounter Care Teams Team MemberRelationshipSpecialtyStart DateEnd Date Katarzyna Leone MD [address] [place] [address] PCP - Parypzp11/12/25documented as of this encounter
--- OUTSIDE RECORDS SUMMARY | 2025-06-25 06:20 | XMS_ITS | Clinical Summary ---
Author Organization [facility] Address [address] [place] [address] Care Team Providers Care Streets And Buildings Decorator Name Role Phone Katarzyna Leone ERIKA Primary Care Provider [phone] Allergies Active AllergyReactionsCriticalityNoted DateCommentsMeperidineHives,UnknownHigh 09/04/2019MethohexitalHives,GujhblbEwdl95/03/2020MidazolamHives,UnknownHigh 09/04/2019PenicillinsOther (See Comments),Hggiccv2309/08/2011 Stopped breathing Medications MedicationSigDispense QuantityRefillsLast FilledStart DateEnd DateStatus cholecalciferol, vitamin D3, 10 mcg (400 unit) cap Vitamin D3 ActiveActive benazepriL (LOTENSIN) 20 MG tablet Benazepril HCl ActiveActive atorvastatin (LIPITOR) 10 MG tablet 03/05/2022ctive carBAMazepine (TEGRETOL) 200 mg tablet Take 1 (one) tablet (200 mg total) by mouth every 12 (twelve) hours .Active aspirin 81 MG EC tablet Take 1 (one) tablet (81 mg total) by mouth daily .Active Active Problems ProblemNoted DateDiagnosed DateAbdominal pain, acekxjdxgn12/17/2022 Overview (03/18/2022): Added automatically from request for surgery [id number] Chronic cough03/18/2022 Overview (03/18/2022): Added automatically from request for surgery [id number] Roigylux00/17/2022 Overview (03/18/2022): Added automatically from request for surgery [id number] Hiatal ztwjvu7103/18/2022 Overview (03/18/2022): Added automatically from request for surgery [id number] Social History Tobacco UseTypesPacks/DayYears UsedDateSmoking Tobacco: NeverSmokeless Tobacco: Never Tobacco Cessation:Counseling Given: Not Answered Alcohol UseStandard Drinks/WeekCommentsNever0 (1 standard drink = 0.6 oz pure alcohol)CommentsNoSex and Gender InformationValueDate RecordedSex Assigned at BirthNot on fileLegal GlvZylmoi27/02/2022 1:24 PM EDTGender Identity Weuvru7603/18/2022 10:42 AM EDTSexual DkqjclxqeysPkucirmv39/17/2022 10:42 AM EDT Last Filed Vital Signs Vital SignReadingTime TakenCommentsBlood Siboxltm552/8107/03/2022 2:58 PM EST Euawr703507/03/2022 2:58 PM VBPDtmvlrdligl50.4 ??C (97.5 ??F)05/18/2022 2:47 PM EDTRespiratory Ozxj3554 2:47 PM EDTOxygen Mhjpgvncpg34%07/03/2022 2:58 PM ESTInhaled Oxygen Concentration--Ncmnsj23.2 kg (190 lb)07/03/2022 2:58 PM EST Lthokm325.5 cm (5' 2 )07/03/2022 2:58 PM ESTBody Mass Index34.7507/03/2022 2:58 PM EST Plan of Treatment Health MaintenanceDue DateLast DoneCommentsCT Bpxepqfemued1954Colonoscopy 4Colorectal Cancer Screening/Cabobmwpqj1954Dexa Scan1954 Fecal DNA1954Fecal occult blood test (FOBT,FIT)1954Wellness Visit 1957Depression Screening/Follow-Up (PHQ-2/9)1966Hepatitis C Njhadakpq75/21/1972Tetanus/Diphtheria/Pertussis (1 - Tdap)1973Flexible lnlnbkgoygqac36/21/2004Zoster Vaccines (1 of 2)02/20/2004Falls Risk Assessment 02/19/20190549Wqcvcgxuv53, 08/12/2020OVID-19 Vaccine (1 - 2024- season)2025Influenza Vaccine (#1)501/06/2022, 05/23/2020, 06/23/2019, Additional history existsRSV Vaccines (1 - 1-dose 75+ series) 2029Pneumococcal Vaccine: 50+ SorsxXauzrfwvb31/07/2021, 08/12/2019, 08/11/2019HIB VaccinesAged OutNo longer eligible based on patient's age to complete this topicHPV VaccinesAged OutNo longer eligible based on patient's age to complete this topicHepatitis A VaccinesAged OutNo longer eligible based on patient's age to complete this topicHepatitis B VaccinesAged OutNo longer eligible based on patient's age to complete this topicIPV VaccinesAged OutNo longer eligible based on patient's age to complete this topicMeningococcal ACWY VaccineAged OutNo longer eligible based on patient's age to complete this topic Meningococcal B VaccineAged OutNo longer eligible based on patient's age to complete this topicRotavirus VaccinesAged OutNo longer eligible based on patient's age to complete this topic Medical Devices ImplantedTypeAreaManufacturerDevice IdentifierShelf Expiration DateModel / Serial / LotMesh 7 X 10cm Resorbable Phasix [address] - Sna Implanted:Qty: 1 on 05/18/2022 by Pedrito Staley MD at [facility] MeshN/A: EsophagusDAVOL [id number] / NA / [id number] Insurance * Guarantor: Becki Damon EAccount TypeRelation to PatientDate of BirthPhone Billing AddressPersonal/NdzbxcShio1955 [phone] (Home) [address] [place] [address] MemberSubscriberPlan / Payer (Effective 2021-Present)Name:Becki Damon Member ID:[id number] Relation to Subscriber:SelfName:Becki Damon Subscriber ID:[id number] Payer ID:Not on file Group ID:Not on file Type:Not on file Address: [facility] [place] [employer] [place] [address] [address] [place] [address] Care Teams Team MemberRelationshipSpecialtyStart DateEnd Date Katarzyna Leone CNP [address] [place] [address] PCP - GeneralFamily Medicine03/03/22 Vashti Cole [address] [place], [place] [phone] Referring PhysicianNurse Practitioner03/03/22
--- OUTSIDE RECORDS SUMMARY | 2025-06-25 06:20 | XMS_ITS | Clinical Summary ---
Author Organization [facility] Address [address], [address] [place] [address] Care Team Providers Care Spice Grinder Name Role Phone Katarzyna Leone CHAMP - ADVANCE AGENT Primary Care Provider [phone] Allergies Active AllergyReactionsCriticalityNoted DateCommentsMethohexitalHivesHigh 09/04/20196247UpmeswynhpYzcizCbkw01/03/2020PenicillinsOther (See Comments)09/08/2011 Stopped breathing RffqocidaFlyirNwax36/03/2020 Medications MedicationSigDispense QuantityRefillsLast FilledStart DateEnd DateStatus aspirin 81 MG EC tablet Take 1 tablet by mouth dailyActive benazepril (LOTENSIN) 20 MG tablet Take 1 tablet by mouth dailyActive Multiple Vitamins-Minerals (THERAPEUTIC MULTIVITAMIN-MINERALS) tablet Take 1 tablet by mouth dailyActive Cholecalciferol (VITAMIN D3) 125 MCG (5000 UT) TABS Take 1 tablet by mouth dailyActive ibuprofen (ADVIL;MOTRIN) 800 MG tablet Indications:Post-op painTake 1 tablet by mouth every 8 hours as needed for Pain 10 tablet 09/04/2019Active atorvastatin (LIPITOR) 10 MG tablet 11/08/2021ctive Probiotic Product (PROBIOTIC PO) Take by mouthActive vitamin E 1000 units capsule Take 1 capsule by mouth dailyActive clindamycin (CLEOCIN) 300 MG capsule Take 300 mg by mouth in the morning and 300 mg at noon and 300 mg before bedtime.Active pantoprazole (PROTONIX) 20 MG tablet Take 2 tablets by mouth in the morning. 30 tablet 03/01/2022ctive Additional Information Patient not taking.Reported on 05/23/2025 dicyclomine (BENTYL) 10 MG capsule Take 1 capsule by mouth every 6 hours as needed (cramps) 20 capsule 03/01/2022ctive Additional Information Patient not taking.Reported on 05/23/2025 Ascorbic Acid (VITAMIN C) 250 MG tablet Take 1 tablet by mouth dailyActive ZINC PO Take by mouthActive carBAMazepine (TEGRETOL-XR) 100 MG extended release tablet Indications:Partial epilepsy with impairment of consciousness, intractable (HCC) Take one in am + two in pm 90 tablet 605Active Active Problems ProblemNoted DateDiagnosed DateHot twywcma5506/01/2021bnormal liver enzymes 05/28/2021Neck pain02/09/2017Muscle spasm02/09/2017Partial epilepsy with impairment of consciousness, not pwyfamwuzoe31/17/2017Recurrent seizures 07/03/2016Memory loss01/06/20158854Nmtlwzd54/01/2014Hot flash, xrxapphvhi08/15/2012 Partial epilepsy with impairment of consciousness, /15/2012Spell of visual disturbance Overview (02/27/2017): Updating deleted diagnoses Endometrial thickening on ultrasound Encounters DateTypeDepartmentCare ZjrvDwwqaldhayw74/22/2025 1:00 PM EDTTelemedicine [facility]rology [address] [place] [address] Ousmane Mariano MD 04/18/2025Transcribe Orders [facility] [address] [place] [address] Katarzyna Leone, CHAMP Serrano NP Syncope, unspecified syncope type (Primary Dx)04/17/2025 3:12 PM EDT - 04/17/2025 11:59 PM EDTHospital Encounter [facility] [address] [place] [address] Syncope and collapse (Primary Dx); Partial epilepsy with impairment of consciousness, intractable (HCC) Discharge Disposition: Home or Self Care04/17/2025 3:10 PM EDT - 04/19/2025 11:59 PM EDTHospital Encounter [facility] Cardiology [address] [place] [address] Discharge Disposition: Home or Self Carefrom Last 3 Months Family History Medical HistoryRelationNameCommentsHeart AttackBrother 1Lung CancerBrother 1 Heart AttackBrother 2Lung CancerBrother 2CancerFatherWillardskinDiabetesFather WillardHeart AttackFatherWillardDementiaMotherFlossieCancerSister 1BrendaOvarian Lung CancerSister 2RelationNameStatusCommentsBrother 1DeceasedBrother 2Father WillardDeceasedMotherFlossieSister 1BrendaDeceasedSister 2DeceasedSister 3Alive Sister 4AliveSister 5AliveSister 6AliveSister 7Alive Social History Tobacco UseTypesPacks/DayYears UsedDateSmoking Tobacco: NeverSmokeless Tobacco: Never Tobacco Cessation:Counseling Given: Not Answered Alcohol UseStandard Drinks/WeekCommentsYes0 (1 standard drink = 0.6 oz pure alcohol)Occasionally 1 glass of wine on holidaysCommentsNoSex and Gender InformationValueDate RecordedSex Assigned at VmxshGfuhqa50/02/2021 12:59 PM EST Legal SusVpogqk99/10/2013 11:42 AM ESTGender VtwqcjtqWsvsrc35/02/2021 12:59 PM ESTSexual AjkchppqybzMmhoycax86/02/2021 12:59 PM EST Last Filed Vital Signs Vital SignReadingTime TakenCommentsBlood Gtmncceb786/8006 2:22 PM EDT Prlzb7479 2:22 PM USDQmldjpnbjvv38.9 ??C (96.6 ??F)03/01/2022 12:13 PM EDTRespiratory Jtln829003/01/2022 12:13 PM EDTOxygen Smfenaebqb15%03/01/2022 12:13 PM EDTInhaled Oxygen Concentration--Jlfjvq46.1 kg (203 lb)11/21/2024 4:24 PM EDT Bahyvw137.9 cm (5' 1 )11/21/2024 4:24 PM EDTBody Mass Index38.36011/21/2024 4:24 PM EDT Plan of Treatment DateTypeDepartmentCare Team (Latest Contact Info)Iycscrgxlzg64/04/2025 3:00 PM ESTTelemedicine [facility] Neurology Specialist [address] [place] [address] Ousmane Mariano MD [address], [address] [place], [place] [id number] 4 month follow up labs seizures -[facility] MaintenanceDue DateLast DoneComments Depression Cysodx8602/19/1966DTaP/Tdap/Td vaccine (1 - Tdap)1973Colonoscopy 1999FIT/FOBT: Average risk1999Sigmoidoscopy/CT colonography 1999Shingles vaccine (1 of 2)02/20/2004A1C test (Diabetic or Prediabetic) /, 02/06/20212821Qhudrk22/17/202508/, 03/22/2023, 02/20/2022, Additional history existsCOVID-19 Vaccine ( - season) 2025reast cancer /, 04/26/2023, 04/23/2023, Additional history existsColorectal Cancer Imvkqe6504/30/2028Fecal-DNA (Cologuard): Average risk/Respiratory Syncytial Virus (RSV) or age 60 yrs+ (1 - 1-dose 75+ series)2029DEXA (modify frequency per FRAX score)Cqmorwjev04/02/2019, 11/01/2018Hepatitis C screenCompleted 01/14/2019Pneumococcal 50+ years OgtsnlnYuodruxua93/07/2021, 08/12/2019Diabetes qgpxgyYzromrjieosj44/17/2024, 02/06/2021Flu ncrueazCgedipuwc51/16/2025, 06/16/2024, 05/15/2023, Additional history existsHepatitis A vaccineAged OutNo longer eligible based on patient's age to complete this topicHepatitis B vaccine Aged OutNo longer eligible based on patient's age to complete this topicHib vaccineAged OutNo longer eligible based on patient's age to complete this topic Meningococcal (ACWY) vaccineAged OutNo longer eligible based on patient's age to complete this topicMeningococcal B vaccineAged OutNo longer eligible based on patient's age to complete this topicPolio vaccineAged OutNo longer eligible based on patient's age to complete this topic Procedures Procedure NamePriorityDate/TimeAssociated DiagnosisCommentsCARBAMAZEPINE LEVEL, BUBSLKvcpulj70/16/2025 3:41 PM EDT Partial epilepsy with impairment of consciousness, intractable (HCC) EXTENDED CARDIAC HOLTER MONITOR 8D-14D (OFFICE HOOKUP & IN-HOUSE ANALYSIS) Dgirlfe4504/17/2025 3:20 PM EDT Syncope and collapse NERI KAILASH DIGITAL SCREEN SELF REFERRAL W OR WO CAD ZTKNALOSIAopkqmb17/22/2025 4:27 PM EDT Breast cancer screening by mammogram LIPID PBHRQNigfjey85/17/2024 8:36 AM EDT HEMOGLOBIN Y6IPdmxhgs39/17/2024 8:36 AM EDT HEPATITIS PANEL, GRXMWLggkslb47/15/2019 8:18 AM EDT DEXA BONE DENSITY AXIAL CUERLZXJCzsjzay00/02/2019 3:24 PM EDT Post-menopausal from Last 3 Months or Most Recently Relevant to Health Maintenance Results * Carbamazepine Level, Total (04/17/2025 3:41 PM EDT)ComponentValueRef RangeTest MethodAnalysis TimePerformed AtPathologist SignatureCarbamazepine Lvl5.74.0 - 12.0 ug/mL04/17/2025 3:41 PM EDTMERCY LABORATORIESCarbamazepine Dose Amount Gzwqbvb7104/17/2025 3:41 PM [facility] LABCarbamazepine Date Last DoseUNK^Unknown^L04/17/2025 3:41 PM [facility] LABCarbamazepine Dose TimeUNK^Unknown^L04/17/2025 3:41 PM EDPA[facility] LABSpecimen (Source)Anatomical Location / LateralityCollection Method / VolumeCollection TimeReceived TimeBloodBLOOD SPECIMEN / Unknown 04/17/2025 3:41 PM EDT04/17/2025 3:42 PM EDT Narrative Authorizing ProviderResult TypeResult StatusSubrahmanyam Chodisetty MDCHEMISTRY ORDERABLESFinal ResultPerforming OrganizationAddressCity/State/ZIP CodePhone Number [facility] [address] [place] [address], [facility] [phone] [facility] [address] [place] [address], [facility] [phone] * EXTENDED CARDIAC HOLTER MONITOR 8D-14D (OFFICE HOOKUP & IN-HOUSE ANALYSIS) (04/17/2025 3:20 PM EDT)Anatomical RegionLateralityModalityCardiac Diagnostic Specimen (Source)Anatomical Location / LateralityCollection Method / Volume Collection TimeReceived Time Narrative 05/09/2025 5:01 PM EDT - Predominant rhythm: NSR - Atrial Tachycardia (AT) 6 episodes, Longest/Fastest 8 beats @ Avg 134 bpm up to 168 bpm - Ectopic Atrial Run(s) (EA Run) - PAC 0.1 % - PVC <0.1 % Multiple symptoms were reported and were associated with normal sinus rhythm in the 60's as well as sinus tachycardia in the 120's. No clear cardiac cause of shortness of breath or syncope was identified from this study. ?? Authorizing ProviderResult TypeResult StatusRachel Fruth RN MOBILE - NPCV CARDIAC DIAGNOSTIC ORDERABLESFinal Result * [facility] KAILASH DIGITAL SCREEN SELF REFERRAL W OR WO CAD BILATERAL (11/21/2024 4:27 PM EDT)Anatomical RegionLateralityModalityBreastBilateralMammographySpecimen (Source)Anatomical Location / LateralityCollection Method / VolumeCollection TimeReceived Time11/22/2024 9:02 AM EDT Impressions 11/22/2024 9:03 AM EDT Stable exam. No mammographic evidence of malignancy BIRADS: BIRADS - CATEGORY 2 Benign Findings. ??Normal interval follow-up is recommended in 12 months. OVERALL ASSESSMENT - BENIGN A letter of notification will be sent to the patient regarding the results. The [employer] recommends annual mammograms for women 40 years and older. Performing Facility: [place] [address] Narrative 11/22/2024 9:03 AM EDT EXAMINATION: SCREENING DIGITAL BILATERAL MAMMOGRAM WITH TOMOSYNTHESIS, 11/21/2024 TECHNIQUE: Screening mammography of the bilateral breasts was performed with tomosynthesis. ??2D standard and 3D tomosynthesis combination imaging performed through both breasts in the MLO and CC projection. ??Computer aided detection was utilized in the interpretation of this exam. COMPARISON: April 26, 2023 HISTORY: Screening. FINDINGS: BREAST COMPOSITION: There are scattered areas of fibroglandular density. There is no dominant mass, architectural distortion or concerning grouping of microcalcification in either breast. ??Benign-appearing calcifications are stable. Authorizing ProviderResult TypeResult StatusRachel Fruth RN MOBILE - NPIMG MAMMOGRAPHY ORDERABLESFinal Result * Hemoglobin A1C (03/18/2024 8:36 AM EDT)ComponentValueRef RangeTest Method Analysis TimePerformed AtPathologist SignatureHemoglobin A1C5.84.0 - 6.0 % 03/18/2024 8:36 AM EDTMERCY LABORATORIESEstimated Avg Ygpdueq232wm/dL 03/18/2024 8:36 AM EDTMERCY LABORATORIESComment: The ADA and AACC recommend providing the estimated average glucose result to permit better patient understanding of their HBA1c result. Specimen (Source)Anatomical Location / LateralityCollection Method / Volume Collection TimeReceived Time03/18/2024 8:36 AM EDT03/18/2024 8:41 AM EDT Narrative Authorizing ProviderResult TypeResult StatusRachel Fruth RN MOBILE - NPCHEMISTRY ORDERABLESFinal ResultPerforming OrganizationAddressCity/State/ZIP CodePhone Number [facility] [address] [place] [address], [facility] [phone] [facility] [address] [place] [address], [facility] [phone] * Lipid Panel (03/18/2024 8:36 AM EDT)ComponentValueRef RangeTest MethodAnalysis TimePerformed AtPathologist SignatureCholesterol, Zkvkn7156 - 199 mg/dL 03/18/2024 8:36 AM EDTMERCY LABORATORIESComment: Cholesterol Guidelines: <200 Desirable 200-240 ??Borderline >240 Undesirable HDL65>40 mg/dL03/18/2024 8:36 AM EDTMERCY LABORATORIESComment: HDL Guidelines: <40 Undesirable 40-59 ?Borderline >59 Desirable LDL Pdiehsbqswd746 - 100 mg/dL03/18/2024 8:36 AM EDTMERCY LABORATORIESComment: LDL Guidelines: <100 Desirable 100-129 ?? Near to/above Desirable 130-159 ?? Borderline >159 Undesirable Direct (measured) LDL and calculated LDL are not interchangeable tests. Chol/HDL Ratio2. 8:36 AM EDTMERCY GCQROIIYTDJMJjeebsrgqlket72<150 mg/dL03/18/2024 8:36 AM EDTMERCY LABORATORIESComment: Triglyceride Guidelines: <150 Desirable 150-199 ??Borderline 200-499 ??High >499 Very high Based on AHA Guidelines for fasting triglyceride, May 2012. RLVF83to/dL03/18/2024 8:36 AM EDTMERCY LABORATORIESSpecimen (Source)Anatomical Location / LateralityCollection Method / VolumeCollection TimeReceived Time 03/18/2024 8:36 AM EDT03/18/2024 8:41 AM EDT Narrative Authorizing ProviderResult TypeResult StatusRachel Fruth RN MOBILE - NPCHEMISTRY ORDERABLESFinal ResultPerforming OrganizationAddressCity/State/ZIP CodePhone Number [facility] [address] [place] [address], [facility] [phone] [facility] [address] [place] [id number], [facility] [phone] * Hepatitis Panel, Acute (01/14/2019 8:18 AM EDT)ComponentValueRef RangeTest MethodAnalysis TimePerformed AtPathologist SignatureHepatitis B Surface Ag YWUHTMCYTFQXATKYTOLUPR52/15/2019 8:18 AM EDTMERCY LABORATORIESHepatitis C Ab LVRQNGTAAPXUIMDFBWPXZQ21/15/2019 8:18 AM EDTMERCY LABORATORIESComment: ? The hepatitis C procedure used in our laboratory is a Chemiluminescent test specific for three recombinant HCV antigens. ??A negative anti-HCV result indicates that the antibodies to hepatitis C virus are not present at this time. Individuals with reactive anti-HCV should be considered infected and infectious until proven otherwise. ??Confirmation of all equivocal or reactive results is recommended by ordering HCV RNA by PCR. Hep B Core Ab, WbAZEINROBBIQHCZTTPUXIRDW57/15/2019 8:18 AM EDTMWobeek LABORATORIES Hep A AcLGHGGFRTVVUQQAGCPVSFNOI69/15/2019 8:18 AM EDTMWobeek LABORATORIESSpecimen (Source)Anatomical Location / LateralityCollection Method / VolumeCollection TimeReceived Time01/14/2019 8:18 AM EDT01/14/2019 8:19 AM EDT Narrative Authorizing ProviderResult TypeResult StatusRachel Fruth RN MOBILE - NPIMMUNOLOGY ORDERABLESFinal ResultPerforming OrganizationAddressCity/State/ZIP CodePhone Number [facility] [address] [place] [address], [facility] [phone] [facility] [address] [place] [address] [phone] * DEXA BONE DENSITY AXIAL SKELETON (11/01/2018 3:24 PM EDT)Anatomical Region LateralityModalityHead, C-spine, T-spine, L-spine, ChestRadiographic Imaging Specimen (Source)Anatomical Location / LateralityCollection Method / Volume Collection TimeReceived Time11/01/2018 3:30 PM EDT Impressions 11/01/2018 3:38 PM EDT Normal by WHO criteria. Narrative 11/01/2018 3:38 PM EDT EXAMINATION: BONE DENSITOMETRY 11/01/2018 3:24 pm TECHNIQUE: A bone density dual x-ray absorptiometry (DEXA) scan was performed of the left forearm and bilateral hips ??on a Dennoo system. COMPARISON: None. HISTORY: ORDERING SYSTEM PROVIDED HISTORY: Post-menopausal FINDINGS: LUMBAR SPINE: The bone mineral density in the lumbar spine including the L1-L4 levels is measured at 1.209 g/cm2, which corresponds to a T-score of 0.2 and a Z-score of 0.9. ??This is within the normal range by WHO criteria. LEFT HIP: The bone mineral density in the total hip is measured at 1.099 g/cm2 corresponding to a T-score of 0.7 and a Z-score of 1.2. ??This is within the normal range by WHO criteria. The bone mineral density of the femoral neck is measured at 0.986 g/cm2 corresponding to a T-score of -0.4 and a Z-score of 0.5. ??This is within the normal range by WHO criteria. RIGHT HIP: The bone mineral density in the total hip is measured at 1.060 g/cm2 corresponding to a T-score of 0.4 and a Z-score of 0.9. ??This is within the normal range by WHO criteria. The bone mineral density of the femoral neck is measured at 1.020 g/cm2 corresponding to a T-score of -0.1 and a Z-score of 0.7. ??This is within the normal range by WHO criteria. Procedure Note Ramírez Pickering MD - 11/01/2018 EXAMINATION: BONE DENSITOMETRY 11/01/2018 3:24 pm TECHNIQUE: A bone density dual x-ray absorptiometry (DEXA) scan was performed ofthe left forearm and bilateral hips on a Dennoo system. COMPARISON: None. HISTORY: ORDERING SYSTEM PROVIDED HISTORY: Post-menopausal FINDINGS: LUMBAR SPINE: The bone mineral density in the lumbar spine including the L1-L4 levelsis measured at 1.209 g/cm2, which corresponds to a T-score of 0.2 and aZ-score of 0.9. This is within the normal range by WHO criteria. LEFT HIP: The bone mineral density in the total hip is measured at 1.099 g/cm2 corresponding to a T-score of 0.7 and a Z-score of 1.2. This is withinthe normal range by WHO criteria. The bone mineral density of the femoral neck is measured at 0.986 g/cm2 corresponding to a T-score of -0.4 and a Z-score of 0.5. This is withinthe normal range by WHO criteria. RIGHT HIP: The bone mineral density in the total hip is measured at 1.060 g/cm2 corresponding to a T-score of 0.4 and a Z-score of 0.9. This is withinthe normal range by WHO criteria. The bone mineral density of the femoral neck is measured at 1.020 g/cm2 corresponding to a T-score of -0.1 and a Z-score of 0.7. This is withinthe normal range by WHO criteria. IMPRESSION: Normal by WHO criteria. Authorizing ProviderResult TypeResult StatusRachel Fru RN MOBILE - NPIMG DEXA ORDERABLESFinal Result from Last 3 Months or Most Recently Relevant to Health Maintenance Insurance * Guarantor: Becki Kaur TypeRelation to PatientDate of BirthPhone Billing AddressPersonal/VqibatUfgw1955 [id number] [address] * Guarantor: Becki Kaur TypeRelation to PatientDate of BirthPhone Billing AddressPersonal/OacjupPjuj1955 [id number] [address] Advance Directives * Full Code (Latest Code Status on File) Date ActivatedDate InactivatedComments09/04/2019 11:30 AM09/04/2019 4:22 PM Care Teams Team MemberRelationshipSpecialtyStart DateEnd Date Fruth, Katarzyna, RN MOBILE - MG PCP - GeneralNurse Practitioner01/14/19
--- OUTSIDE RECORDS SUMMARY | 2025-06-25 06:20 | XMS_ITS | Encounter Summary ---
Author Organization [facility] Address [address] [place] [address] Care Team Providers Care Back Facer Name Role Phone Katarzyna Leone SALES OPERATIONS SPECIALIST Unavailable [phone] Gus Reza DO Primary Care Provider [phone] Encounter Details DateTypeDepartmentCare Team (Latest Contact Info)Mnnypozcnau75/19/2025bstract [facility] [address] [place] [address] Katarzyna Leone SALES OPERATIONS SPECIALIST [address] [place] [address] Social History Tobacco UseTypesPacks/DayYears UsedDateSmoking Tobacco: NeverAlcohol [...] relatives?Once a week04/05/2024How often do you attend lutheran or restorationism services?More than 4 times per year04/05/2024o you belong to any clubs or organizations such as lutheran groups, unions, fraternal or athletic bhargav ups, or school groups?Yes04/05/2024How often do you attend meetings of the clubs or organizations you belong to?More than 4 times per year04/05/2024re you , , , , never , or living with a partner? Foimieh4404/05/2024UDIT-CAnswerDate RecordedQ1: How often do you have a [...] hard at all04/05/2024HQ-2AnswerDate RecordedPatient Health Questionnaire-2 Score0 04/17/2025[facility] [place] [facility] - Occupational Stress QuestionnaireAnswerDate RecordedDo you feel stress - tense, restless, nervous, or anxious, or unable to sleep at night because yourmind is troubled all the time - these days?Patient ralmkekv14/04/2024Exercise Vital SignAnswerDate RecordedOn average, how many days [...] or from getting things needed for daily living?No04/05/2024Housing Stability Vital SignAnswerDate RecordedIn the last 12 months, was there a time when you were not able to pay the mortgage or rent on time?No04/05/2024In the past 12 months, how many times have you moved where you were living?t any time in the past 12 months, were you homeless or living in a jail (including now)?No04/05/2024Comments UnknownSex and Gender InformationValueDate RecordedSex Assigned at BirthNot on fileLegal TxsXvizhf48/15/2023 8:28 PM EDTGender BqilfztcBmnjye82/08/2024 4:54 PM ESTSexual OrientationNot on filedocumented as of this encounter Plan of Treatment DateTypeDepartmentCare Team (Latest Contact Info)Szbdydpeekh84/17/2026 2:40 PM ESTOffice Visit [facility] [address] [place] [phone] Sonam Chavez, LYNDSAY [address] [place] [address] 10/15/2025 2:00 PM EDTOffice Visit [facility] [address] [place] [address] Katarzyna Leone NP [address] [place] [address] documented as of this encounter Visit Diagnoses Not on filedocumented in this encounter Care Teams Team MemberRelationshipSpecialtyStart DateEnd Date Katarzyna Leone NP [address] [place] [address] PCP - Denise Commercial10/31/20 Gus Reza DO [address] [place] [address] PCP - GeneralFamily Medicine12/08/22documented as of this encounter
--- OUTSIDE RECORDS SUMMARY | 2025-06-25 06:41 | XMS_ITS | Encounter Summary ---
Author Organization [facility] Address [address] [place] [address] Care Team Providers Care Organ Recovery Coordinator Name Role Phone Katarzyna Leone BLANKET WINDER HELPER Unavailable [phone] Gus Reza DO Primary Care Provider [phone] Encounter Details DateTypeDepartmentCare Team (Latest Contact Info)Sszvtziwtms83/19/2025bstract [facility] [address] [place] [address] Katarzyna Leone BLANKET WINDER HELPER [address] [place] [address] Social History Tobacco UseTypesPacks/DayYears UsedDateSmoking [...] relatives?Once a week04/05/2024How often do you attend mormonism or latter-day services?More than 4 times per year04/05/2024o you belong to any clubs or organizations such as mormonism groups, unions, fraternal or athletic bhargav ups, or school groups?Yes04/05/2024How often do you attend meetings of the clubs or organizations you belong to?More than 4 times per year04/05/2024re you , , , , never , or living with a partner? Paqrxql7004/05/2024UDIT-CAnswerDate RecordedQ1: How often do you have a [...] hard at all04/05/2024HQ-2AnswerDate RecordedPatient Health Questionnaire-2 Score0 04/17/2025[facility] [place] of [facility]ational [facility] - Occupational Stress QuestionnaireAnswerDate RecordedDo you feel stress - tense, restless, nervous, or anxious, or unable to sleep at night because yourmind is troubled all the time - these days?Patient yutiltmu29/04/2024Exercise Vital SignAnswerDate RecordedOn average, how many days [...] were you homeless or living in a usp (including now)?No04/05/2024Comments UnknownSex and Gender InformationValueDate RecordedSex Assigned at BirthNot on fileLegal DvcMvyfsu57/15/2023 8:28 PM EDTGender WbyioccyJuzokp08/08/2024 4:54 PM ESTSexual OrientationNot on filedocumented as of this encounter Plan of Treatment DateTypeDepartmentCare Team (Latest Contact Info)Klpxohhzfei05/17/2026 2:40 PM ESTOffice Visit [facility] [address] [place] [phone] Sonam Chavez, LYNDSAY [address] [place] [address] 10/15/2025 2:00 PM EDTOffice Visit [facility] [address] [place] [address] Katarzyna Leone NP [address] [place] [address] documented as of this encounter Visit Diagnoses Not on filedocumented in this encounter Care Teams Team MemberRelationshipSpecialtyStart DateEnd Date Katarzyna Leone NP [address] [place] [address] PCP - Denise Commercial10/31/20 Gus Reza DO [address] [place] [address] PCP - GeneralFamily Medicine12/08/22documented as of this encounter
--- OUTSIDE RECORDS SUMMARY | 2025-06-25 06:41 | XMS_ITS | Encounter Summary ---
Author Organization [facility] Address [address] [place] [address] Care Team Providers Care Chassis Driver Name Role Phone Katarzyna Leone FINANCIAL AID OFFICER Unavailable [phone] Gus Reza DO Primary Care Provider [phone] Reason for Visit * ReasonOnset DateCommentsabnormal CT06/20/2025 Encounter Details DateTypeDepartmentCare Team (Latest Contact Info)Uyfxtoijyfg76/19/2025Telephone [facility] [address] [place] [address] Katarzyna Leone NP [address] [facility] [place] [address] Social History Tobacco [...] relatives?Once a week04/05/2024How often do you attend rastafari or jehovah's witness services?More than 4 times per year04/05/2024o you belong to any clubs or organizations such as rastafari groups, unions, fraternal or athletic bhargav ups, or school groups?Yes04/05/2024How often do you attend meetings of the clubs or organizations you belong to?More than 4 times per year04/05/2024re you , , , , never , or living with a partner? Cucidol4304/05/2024UDIT-CAnswerDate RecordedQ1: How often do you have a [...] hard at all04/05/2024HQ-2AnswerDate RecordedPatient Health Questionnaire-2 Score0 04/17/2025[facility] Occupational Health - Occupational Stress QuestionnaireAnswerDate RecordedDo you feel stress - tense, restless, nervous, or anxious, or unable to sleep at night because yourmind is troubled all the time - these days?Patient ytfxuexx69/04/2024Exercise Vital SignAnswerDate RecordedOn average, how many days [...] were you homeless or living in a intermediate (including now)?04/05/2024Comments UnknownSex and Gender InformationValueDate RecordedSex Assigned at BirthNot on fileLegal WyhYdaikd82/15/2023 8:28 PM EDTGender DioomzoiAuwenz53/08/2024 4:54 PM ESTSexual OrientationNot on filedocumented as of this encounter Miscellaneous Notes * Telephone Encounter - Dionna Taylor LPN - 06/22/2025 1:59 PM EST Vm left for pt to call office. Faxed order to [place] unless pt would like to complete elsewhere. [...] PM EST I have a CT from [facility] which is abnormal I just want to make sure she has follow up with someoneregarding this. They want a pelvic US with transvaginal for mass if she does not have follow up. documented in this encounter Plan of Treatment DateTypeDepartmentCare Team (Latest Contact Info)Zupabpysblr55/17/2026 2:40 PM ESTOffice Visit [facility] [address] [place] [address] Sonam Chavez, LYNDSAY [address] [place] [address] 10/15/2025 2:00 PM EDTOffice Visit [facility] [address] [place] [address] Katarzyna Leone NP [address] [place] [address] NameTypePriorityAssociated DiagnosesOrder ScheduleUS pelvis transvaginalImaging STAT Pelvic mass in female Expected: 06/22/2025, Expires: 06/22/2026documented as of this encounter Visit Diagnoses Diagnosis Pelvic mass in female- Primary documented in this encounter Care Teams Team MemberRelationshipSpecialtyStart DateEnd Date Katarzyna Leone NP [address] [place] [address] PCP - Denise Mix10/31/20 Gus Reza DO [address] [place] [address] PCP - GeneralFamily Medicine12/08/22documented as of this encounter
--- OUTSIDE RECORDS SUMMARY | 2025-06-25 06:41 | XMS_ITS | Clinical Summary ---
Author Organization [facility] Address [address] [place] [address] Care Team Providers Care Credit Union Teller Name Role Phone Katarzyna Leone MD Primary Care Provider [phone] Allergies Active AllergyReactionsCriticalityNoted DateCommentsMeperidineHives,Other, VrdbcjrLyop57/03/2020MethohexitalHives,Other,KqsmaahPcpm48/03/2020MidazolamHives ,Other,YurbeeaIynn32/03/2020PenicillinsOther,Kwwsupl6909/08/2011 Stopped breathing Stopped breathing Stopped breathing Stopped [...] 81 mg by mouth in the morning.Active otbczdjhtocv-psp-qffo-FA-vit K 18 mg iron-400 mcg-25 mcg tablet Take 200 mg by mouth 1 (one) time each day.Active zinc gluconate 50 mg tablet Take 50 mg by mouth in the morning.Active calcium carbonate-vitamin D3 500 mg-5 mcg (200 unit) tablet Take 1 tablet by mouth in the morning.Active Active Problems ProblemNoted DateDiagnosed DateEndometrial thickening on dnargylypv10/10/2025 Spell of visual miluddtfvxn51/10/2025 Overview (06/11/2025): Updating deleted diagnoses Abdominal pain, xatlgjicxb66/17/2022 Overview (06/11/2025): Added automatically from request for surgery [id number] Hlikmpfe41/17/2022 Overview (06/11/2025): Added automatically from request for surgery [id number] Chronic cough03/18/2022 Overview (06/11/2025): Added automatically from request for surgery [id number] Abnormal liver /27/1116Isynwamiwbqv75/30/2020Vitamin D deficiency 08/25/20185679Qrhlrhwtulzztf79/15/2019Morbid ptznkey0708/16/2018Essential hypertension 08/15/2018Gastroesophageal reflux disease with rmyiqulrfyo75/14/2019Hiatal dnljur6608/15/2018 Overview (06/11/2025): Added automatically from request for surgery [id number] Seborrheic hfvvaxymx81/14/2019Muscle spasm02/09/2017Neck pain02/09/2017Recurrent shrumyeq45/02/2016Memory loss01/06/20150441Ooavxdv41/01/2014Complex partial seizures with consciousness qutsfeta62/15/2012Partial epilepsy with impairment of consciousness, bdyaprjmnih47/15/2012Hot flash, zbqeknmtpc56/15/2012 Encounters DateTypeDepartmentCare WrhiWivsqxxuvda77/19/2025Orders Only [facility] [address] [facility] [place] [address] Vanna Smith MD Carcinoid syndrome (CMS/HCC)06/11/2025 3:40 PM ESTOffice Visit [facility] [address] [facility] [place] [address] Edgardo Hayes MD Syncope and collapse (Primary Dx); Hyperthermia; Abdominal mass, right upper demvqmdn79/10/2025Orders Only [facility] [address] [facility] [place] [address] Anastasiia Villegas MA Carcinoid syndrome (CMS/HCC) (Primary Dx)from Last 3 Months Family History Medical HistoryRelationNameCommentsHeart diseaseBrotherCancerFatherHeart disease FatherCancerSisterRelationNameStatusCommentsBrotherFatherDeceasedMotherDeceased Sister Social History Tobacco UseTypesPacks/DayYears UsedDateSmoking Tobacco: NeverSmokeless Tobacco: Never Tobacco Cessation:Counseling Given: Not Answered CommentsUnknownSex and Gender InformationValueDate RecordedSex Assigned at SrwwqFskwfa39/10/2025 3:32 PM ESTLegal YwaYgsfou62/13/2025 11:14 AM EDTGender JzfihesyPrsbuy85/10/2025 3:32 PM ESTSexual OrientationHeterosexual or Straight 06/11/2025 3:32 PM EST Last Filed Vital Signs Vital SignReadingTime TakenCommentsBlood Rgqewudv230/8906/11/2025 4:37 PM EST Xqmny808006/11/2025 4:37 PM ESTTemperature--Respiratory Rate--Oxygen Akpfnbunwl42% 06/11/2025 4:37 PM ESTInhaled Oxygen Concentration--Ajxmff85.5 kg (193 lb) 06/11/2025 4:21 PM ZAORklhgc055.5 cm (5' 2 )06/11/2025 4:21 PM ESTBody Mass Index35.311 4:21 PM EST Plan of Treatment DateTypeDepartmentCare Team (Latest Contact Info)Hvdffcewwke83/22/2025 1:00 PM ESTOffice Visit [facility] [address] [place] [address] Edgardo Hayes MD [address] [place] [address] Health MaintenanceDue DateLast DoneCommentsCT Hekfiwrgpbtz1954Colonoscopy 1955FOBT1955 9593Vesvxyhespvwq1954Depression Akwfubtqj18/21/1966 Adult Qpkdhik4602/20/1976Zoster Vaccines (1 of 2)02/20/2004Fall Risk Screening 2019COVID-19 Vaccine ( season)2025FIT/ Ojtlgefmg01, 04/23/2023olorectal Cancer Ovjlrcdbd81/29/2028 FIT-DNAPneumococcal Vaccine: 50+ PgtypDqnsvkhss58/07/2021, 08/12/2019Influenza FgnizdaUvxpkkawq98/16/2025, 06/16/2024, 05/15/2023, Additional history existsHIB VaccinesAged OutNo [...] DiagnosisCommentsCT ABDOMEN PELVIS W AND WO IV CBKVBSTRNwcativ62/19/2025 11:49 AM EST Carcinoid syndrome (CMS/HCC) ECG 12 LEAD UNIT ACZJYRPWFJukemvw11/10/2025 4:13 PM EST Syncope and collapse from [...] Leone MD [address] [place] [address] PCP - Dtnqwpo93/12/25
--- OUTSIDE RECORDS SUMMARY | 2025-06-25 06:41 | XMS_ITS | Clinical Summary ---
Author Organization [facility] Address [address] [place] [address] Care Team Providers Care Financial Services Internship Name Role Phone Katarzyna Leone ERIKA Primary Care Provider [phone] Allergies Active AllergyReactionsCriticalityNoted DateCommentsMeperidineHives,UnknownHigh 09/04/2019MethohexitalHives,SytcwxqGrsn44/03/2020MidazolamHives,UnknownHigh 09/04/2019PenicillinsOther (See Comments),Lgtsqzj0009/08/2011 Stopped breathing Medications MedicationSigDispense QuantityRefillsLast FilledStart DateEnd [...] .Active Active Problems ProblemNoted DateDiagnosed DateAbdominal pain, aftsrwhvlw74/17/2022 Overview (03/18/2022): Added automatically from request for surgery [id number] Chronic cough03/18/2022 Overview (03/18/2022): Added automatically from request for surgery [id number] Nwlopbod61/17/2022 Overview (03/18/2022): Added automatically from request for surgery [id number] Hiatal wwfckg8003/18/2022 Overview (03/18/2022): Added automatically from request for surgery [id number] Social History Tobacco UseTypesPacks/DayYears UsedDateSmoking Tobacco: NeverSmokeless Tobacco: Never Tobacco Cessation:Counseling Given: Not Answered Alcohol UseStandard Drinks/WeekCommentsNever0 (1 standard drink = 0.6 oz pure alcohol)CommentsNoSex and Gender InformationValueDate RecordedSex Assigned at BirthNot on fileLegal SloRhtmfv50/02/2022 1:24 PM EDTGender Identity Ooovgh1303/18/2022 10:42 AM EDTSexual FofawjbvehuYdoagxaz02/17/2022 10:42 AM EDT Last Filed Vital Signs Vital SignReadingTime TakenCommentsBlood Phvardpn612/8107/03/2022 2:58 PM EST Nrssw529807/03/2022 2:58 PM NFMJroggygvbau60.4 ??C (97.5 ??F)05/18/2022 2:47 PM EDTRespiratory Dgnw1341 2:47 PM EDTOxygen Ilrgdpvuug24%07/03/2022 2:58 PM ESTInhaled Oxygen Concentration--Vvurqg84.2 kg (190 lb)07/03/2022 2:58 PM EST Ttpouj334.5 cm (5' 2 )07/03/2022 2:58 PM ESTBody Mass Index34.7507/03/2022 2:58 PM EST Plan of Treatment Health MaintenanceDue DateLast DoneCommentsCT Eeehmbpxhkoe1954Colonoscopy 4Colorectal Cancer Screening/Sroaxelhny1954Dexa Scan1954 Fecal DNA1954Fecal occult blood test (FOBT,FIT)1954Wellness Visit 1957Depression Screening/Follow-Up (PHQ-2/9)1966Hepatitis C Knlsrevoj12/21/1972Tetanus/Diphtheria/Pertussis (1 - Tdap)1973Flexible vgdfnpsyozqio43/21/2004Zoster Vaccines (1 of 2)02/20/2004Falls Risk Assessment 02/19/20198024Lpbbxikcu84, 08/12/2020OVID-19 Vaccine (1 - 2024- season)2025Influenza Vaccine (#1)501/06/2022, 05/23/2020, 06/23/2019, Additional history existsRSV Vaccines (1 - 1-dose 75+ series) 2029Pneumococcal Vaccine: 50+ RvakpMczvztmkq35/07/2021, 08/12/2019, 08/11/2019HIB VaccinesAged OutNo longer eligible based [...] on 05/18/2022 by Pedrito Staley MD at [facility] MeshN/A: EsophagusDAVOL [id number] / NA / [id number] Insurance * Guarantor: Becki Damon EAccount TypeRelation to PatientDate of BirthPhone Billing AddressPersonal/RezbdfAytg1955 [phone] (Home) [address] [place] [address] MemberSubscriberPlan / Payer (Effective 2021-Present)Name:Becki Damon Member ID:[id number] Relation to Subscriber:SelfName:Becki Damon Subscriber ID:[id number] Payer ID:Not on file Group ID:Not on file Type:Not on file Address: [facility] [employer] A CLAIMS [address] [address] [place] [address] Care Teams Team MemberRelationshipSpecialtyStart DateEnd Date Katarzyna Leone CNP [address] [place] [address] PCP - GeneralFamily Medicine03/03/22 Vashti Cole [address] [place], [place] [address] Referring PhysicianNurse Practitioner03/03/22
--- OUTSIDE RECORDS SUMMARY | 2025-06-25 06:41 | XMS_ITS | Encounter Summary ---
Author Organization [facility] Address [address] [place] [address] Care Team Providers Care Atm Manager Name Role Phone Unavailable Primary Care Provider Unavailabl e Reason for Referral * Imaging (Routine) - Pending ReviewSpecialtyDiagnoses / ProceduresReferred By ContactReferred To Contact Diagnoses Carcinoid syndrome (CMS/HCC) Procedures CT abdomen pelvis w and wo IV contrast Edgardo Hayes MD [address] [place] [address] Phone: tel: fax: Referral IDStatusReasonStart DateExpiration DateVisits RequestedVisits [id number] [id number] Encounter Details DateTypeDepartmentCare Team (Latest Contact Info)Imigihqubrd22/10/2025Orders Only [facility] [address] [place] [address] Anastasiia Villegas MA Carcinoid syndrome (CMS/HCC) (Primary Dx) Social History Tobacco UseTypesPacks/DayYears UsedDateSmoking Tobacco: NeverSmokeless Tobacco: NeverCommentsUnknownSex and Gender InformationValueDate RecordedSex Assigned at BkzmvFlwhnt74/10/2025 3:32 PM ESTLegal BxxSkjxwj81/13/2025 11:14 AM EDTGender MylyrlgjCzbdpm82/10/2025 3:32 PM ESTSexual OrientationHeterosexual or Xtijqnqm36/10/2025 3:32 PM ESTdocumented as of this encounter Functional Status * BPAnswerDate of SyqilojpjmHftgzx938/8911/05/2025 4:37 PM Jessica Kingsley MA * PulseAnswerDate of ZgcwkomhdtCwanrc0494 4:37 PM Jessica Kingsley MA * Audit Alcohol ScreeningQuestionAnswerDate of AssessmentAuthorHow often do you have a drink containing alcohol? 4:37 PM Jessica Kingsley MA * Patient PositionAnswerDate of JukdiextiaAcopvnSgauhqjp60/10/2025 4:37 PM Jessica Talavera MA * BPAnswerDate of QrxckvdqrqJszujp268/8906/11/2025 4:37 PM Jessica Kingsley MA * PulseAnswerDate of CtiqdnmudvKtmjak4627/10/2025 4:37 PM Jessica Kingsley MA * PpJ8LwavnfPpye of YabdrgagpjQjydrr7229/10/2025 4:37 PM Jessica Kingsley MA * BP LocationAnswerDate of AssessmentAuthorRight arm06/11/2025 4:37 PM Jessica Talavera MA * Audit Alcohol ScreeningQuestionAnswerDate of AssessmentAuthorHow often do you have a drink containing alcohol? 4:37 PM Jessica Kingsley MA * Patient PositionAnswerDate of IhmxrlcakmAjovzgTogutduz73/10/2025 4:37 PM Jessica Talavera MA documented as of this encounter Plan of Treatment DateTypeDepartmentCare Team (Latest Contact Info)Flhozvpixfx50/22/2025 1:00 PM ESTOffice Visit [facility] [address] [place] [address] Edgardo Hayes MD [address] [place] [address] NameTypePriorityAssociated DiagnosesOrder Schedule5 HIAA, urine, [...]
--- OUTSIDE RECORDS SUMMARY | 2025-06-25 06:41 | XMS_ITS | Clinical Summary ---
Author Organization [facility] Address [address] [place] [address] Care Team Providers Care Parts Picker Name Role Phone Katarzyna Leone DATA WAREHOUSE SPECIALIST Unavailable [phone] Gus Reza DO Primary Care Provider Allergies Active AllergyReactionsCriticalityNoted DateCommentsMeperidineHives,OtherHigh 09/04/2019Meperidine NgfVvhrjyx37/08/2021MethohexitalHives,Other,UnknownHigh 09/04/2019MidazolamHives,Other,NmmpiyaCghq55/03/2020PenicillinsUnknown,Other 09/08/2011 Stopped breathing Stopped breathing Medications MedicationSigDispense [...] 411/10/2024Discontinued Active Problems ProblemNoted DateDiagnosed DateAbnormal liver qotqxpa33/27/2021Constipation 07/31/2020Vitamin D /24/7136Wjljrtrsylelgw88/15/2019Morbid obesity 08/16/2018Complex partial seizures with consciousness xvijclco29/14/2019 Essential ijisxpbyjdcr01/14/2019Gastroesophageal reflux disease with esophagitis 08/15/2018Hiatal eevkpz9208/15/2018 Overview (03/21/2023): Added automatically from request for surgery [id number] Seborrheic zaizohekg75/14/2019Memory loss01/06/2015Focal epilepsy with impairment of nomjjwhzocmuz85/15/2012 Resolved Problems ProblemNoted DateDiagnosed DateResolved DateEndometrial thickening on ultrasound Spell of visual niptwuugdjc49 Overview (03/21/2023): Updating deleted diagnoses Abdominal pain, Overview (03/21/2023): Added automatically from request for surgery [id number] Xqoondte66 Overview (03/21/2023): Added automatically from request for surgery [id number] Chronic cough Overview (03/21/2023): Added automatically from request for surgery [id number] Hot ypxaups88bnormal mdobktjzo79Muscle spasmNeck painRecurrent seizures FatigueHot flash, ghsgglyvfm51/15/2012 03/21/2023 Encounters DateTypeDepartmentCare VqnqDfeqgsuhfhh77/19/2025Telephone [facility] [place] [address] [place] [address] Katarzyna Leone NP abnormal CT06/20/2025bstract [address] [facility] [place] [address] Katarzyna Leone NP 06/05/2025Refill [address]OM[address] [facility] [place] [address] Katarzyna Leone NP Mixed rdlrzutrfzoimq14/10/2025Telephone [address] [place] [address] Katarzyna Leone NP heart monitor uictman7905/08/2025Telephone [address]OM[address] [place] [address] Katarzyna Leone NP negative fuqpkdnk49/16/2025 2:30 PM EDTOffice Visit N[facility]S [address] [facility] [place] [address] Katarzyna Leone, [place] Medicare annual wellness visit, [...] Provider, Generic External Data 04/17/2025amboo flowsheet [facility] [address] [place] [address] Katarzyna Leone NP 04/17/20253025Dzlnnl33/15/3469Dakvon21/27/2025Telephone [facility] [address] [place] [address] Nayeli Baird MA Lab Ordersfrom Last 3 Months Immunizations ImmunizationAdministration DatesNext DueInfluenza, High Dose Seasonal, Preservative Free04/17/2025,06/16/2024,05/04/2019Influenza, High-dose Seasonal, Quadrivalent, Preservative Free05/15/2023,06/08/2022,05/23/2020Influenza, injectable, quadrivalent, preservative free08/12/2021,06/23/2019,05/31/2018 Influenza, seasonal, injectable, preservative free06/01/2018Pneumococcal Conjugate PCV 13011Pneumococcal Polysaccharide WWTI4094 Family History Medical HistoryRelationNameCommentsDiabetesFatherHeart diseaseFatherMelanoma FatherRelationNameStatusCommentsFatherDeceasedMotherDeceased Social [...] a week 04/05/2024How often do you attend hindu or mormonism services?More than 4 times per year04/05/2024o you belong to any clubs or organizations such as hindu groups, unions, fraternal or athletic groups, or school groups?Yes04/05/2024How often do you attend meetings of the clubs or organizations you belong to?More than 4 times per year04/05/2024re you , , , , never , or living with a partner?Yeikqjk3504/05/2024UDIT-CAnswerDate RecordedQ1: How often do you have a [...] heating?Not hard at all04/05/2024HQ-2AnswerDate RecordedPatient Health Questionnaire-2 [facility]508[facility] [place] [facility] - Occupational Stress QuestionnaireAnswerDate [...] were you homeless or living in a assisted (including now)?No04/05/2024CommentsUnknownSex and Gender InformationValueDate RecordedSex Assigned at BirthNot on fileLegal SexFemale 10/14/2022 8:28 PM EDTGender KvevydpyEhzqdq59/08/2024 4:54 PM ESTSexual OrientationNot on file Last Filed Vital Signs Vital SignReadingTime TakenCommentsBlood Sufibjxz514/78004/17/2025 12:57 PM EDT Vgszi74208/16/2025 12:57 PM QVQZmbjlfftqih31.7 ??C (96.2 ??F)04/17/2025 12:57 PM EDTRespiratory Rate--Oxygen Vxldfrwjgh27%04/17/2025 12:57 PM EDTInhaled Oxygen Concentration--Zuuvgt25.5 kg (195 lb 3.2 oz)04/17/2025 12:57 PM XDYYajsnj519 cm (5' 3 )04/17/2025 12:57 PM EDTBody Mass Index34.58004/17/2025 12:57 PM EDT Plan of Treatment DateTypeDepartmentCare Team (Latest Contact Info)Uqxgauknxyb83/17/2026 2:40 PM ESTOffice Visit N[facility] [address] [place] [address] Sonam Chavez, LYNDSAY [address] [place] [address] 10/15/2025 2:00 PM EDTOffice Visit N[facility]S [facility] [address] [place] [address] Katarzyna Leone NP [address] [place] [address] [facility] DateLast DoneCommentsCT Cphdtinszwyj1954Colonoscopy 1955FIT1955FOBT1955 3592Hbtwsfomllqhn1954OVID-19 Vaccine (2024- season)04/02/20257298Oarshfcdu47/22/04857111/21/2024, 11/21/2024, 04/26/2023, Additional history existsColorectal Cancer Nwmcnerai83/29/2028 FIT-DNAPneumococcal Vaccine: 65+ KfvpgEyfjlnutf09/07/2021, 08/12/2019Influenza DbcpnciIqjbrzykt87/16/2025, 06/16/2024, 05/15/2023, Additional history exists Procedures Procedure NamePriorityDate/TimeAssociated DiagnosisCommentsLAB COLOGUARD?? COLON CANCER WQAHLKKflxqpb76/29/2025 6:50 AM EDT Encounter for screening for malignant neoplasm of colon MHPT GVCZXFVKDVMVXZpdkqye96/16/2025 3:41 PM EDT IUMPJmipqsz33/04/2025 7:02 AM EDT URINALYSIS HVIDRDIystdsr56/04/2025 7:02 AM EDT Localization-related (focal) (partial) symptomatic epilepsy and epileptic syndromes with complex partial seizures, not intractable, without status epilepticus (HCC) Mixed hyperlipidemia Hyperglycemia MICROALBUMIN / CREATININE URINE VDGOQWcvlefs94/04/2025 7:02 AM EDT Localization-related (focal) (partial) symptomatic epilepsy and epileptic syndromes with complex partial seizures, not intractable, without status epilepticus (HCC) Mixed hyperlipidemia Hyperglycemia LIPID IAMZYLtctmgl80/04/2025 7:02 AM EDT Localization-related (focal) (partial) symptomatic epilepsy and epileptic syndromes with complex partial seizures, not intractable, without status epilepticus (HCC) Mixed hyperlipidemia Hyperglycemia AHZZdvubpn27/04/2025 7:02 AM EDT Localization-related (focal) (partial) symptomatic epilepsy and epileptic syndromes with complex partial seizures, not intractable, without status epilepticus (HCC) Mixed hyperlipidemia Hyperglycemia HEMOGLOBIN T9NTcvyyqs23/04/2025 7:02 AM EDT Localization-related (focal) (partial) symptomatic epilepsy and epileptic syndromes with complex partial seizures, not intractable, without status epilepticus (HCC) Mixed hyperlipidemia Hyperglycemia COMPREHENSIVE METABOLIC UXWWJNrrnxzr41/04/2025 7:02 AM EDT Localization-related (focal) (partial) symptomatic epilepsy and epileptic syndromes with complex partial seizures, not intractable, without status epilepticus (HCC) Mixed hyperlipidemia Hyperglycemia CBC (INCLUDES DIFF/PLT)Hztpxgx9104/05/2025 7:02 AM EDT Localization-related (focal) (partial) symptomatic epilepsy and epileptic syndromes with complex partial seizures, not intractable, without status epilepticus (HCC) Mixed hyperlipidemia Hyperglycemia BI MAMMOGRAM SCREENING KMHHCUHELFuhwglp34/22/2023 1:09 PM EDT Encounter for screening mammogram for malignant neoplasm of breast from Last 3 Months or Most Recently Relevant to Health Maintenance Results * Cologuard?? colon cancer screening (04/30/2025 6:50 AM EDT)ComponentValueRef RangeTest MethodAnalysis TimePerformed AtPathologist SignatureNONINV COLON CA DNA+OCC BLD SCRN STL-LYIInqywvjqTbbpdtma20/07/2025 5:00 AM EDTEXRethink Autism ([place] #:[id number])Comment: The Cologuard (TM) test was performed on [...] (Rich Morin al, N Engl J Med 2014;370(14):6586-4085) The normal value (reference range) for this assay is negative. COLOGUARD RE-SCREENING RECOMMENDATION: Periodic colorectal cancer screening is an important part ofpreventive healthcare for asymptomatic individuals at average risk for colorectal cancer. Followinga negative Cologuard result, the [place] [employer] Society and U.S. Multi-Society Task Force screening guidelines recommend a Cologuard re-screening interval of 3 years. References: [place] [employer] Guideline for Colorectal Cancer Screening: https://www.cancer.or g/cancer/cpiak-dpjccx-zyreqc/cdabwohkb-vipfscvxp-qkoabrc/acs-recommendations.htm layla; Darren CORONA, Gopal BENITEZ, Kaylha XiaoK, Colorectal Cancer Screening: Recommendations for Physicians and Patients from the U.S. Multi-Society Task Force on Colorectal Cancer Screening , Am J Gastroenterology 2017; 112:3181-9504. TEST DESCRIPTION: Composite algorithmic analysis of stool [...] colonoscopy. (Rich Oliveira, N Engl J Med 2014;370(14):4077-5162.) Cologuard may produce a false negative or false positive result (no colorectal cancer or precancerous polyp present at colonoscopy follow up). A negative Cologuard test result does not guarantee the absence of CRC or advanced adenoma (pre-cancer). The current Cologuard screening interval is every 3 years. ([place] [employer] and U.S. Multi-Society Task Force). Cologuard performance data in a 10,000 patient pivotal study using colonoscopy as the reference method can be accessed at the following location: www.[employer]/results. Additional description of the Cologuard test process, warnings and precautions can be found at www.cologuard.com. Specimen (Source)Anatomical Location / LateralityCollection Method / Volume Collection TimeReceived TimeStool specimen (specimen)04/30/2025 6:50 AM EDT 05/03/2025 11:15 AM EDT Narrative Authorizing ProviderResult TypeResult StatusRachel E Fruth NPLAB MOLECULAR DIAGNOSTICS ORDERABLESFinal ResultPerforming OrganizationAddressCity/State/ZIP CodePhone Number [employer] (CLIA #:[id number]) [place] [address], * MHPT CARBAMAZEPINE (04/17/2025 3:41 PM EDT)ComponentValueRef [...] Performing Organization Information ?Site ID: QPT ?Name: [facility] ?Address: [address] [place] [address], [address] [place] [address] ?Director: Raul Negron MD Authorizing ProviderResult TypeResult StatusRachel E Fruth NPQUESTFinal Result Performing OrganizationAddressCity/State/[facility] CodePhone Number [facility] * Microalbumin / creatinine urine ratio (04/05/2025 7:02 AM EDT)ComponentValue Ref RangeTest MethodAnalysis TimePerformed AtPathologist SignatureCREATININE, RANDOM ZXZHC40408 - 275 mg/dLQUESTALBUMIN, URINE0.4See Note: mg/dLQUEST Comment: [...] specimen obtained by clean catch procedure / Xxmozjl1204/05/2025 7:02 AM EDT04/05/2025 7:03 AM EDT Narrative [facility] - 04/06/2025 11:20 AM EDT FASTING:YES FASTING: YES Resulting Agency Comment Performing Organization Information ?Site ID: QPT ?Name: [facility] ?Address: [address] [place] [address], [address] [place] [phone] ?Director: Raul Negron MD Authorizing ProviderResult TypeResult StatusRachel E Fruth NPLAB URINE ORDERABLESFinal ResultPerforming OrganizationAddressCity/State/ZIP CodePhone Number [facility] * (ABNORMAL) Urinalysis with reflex microscopic (04/05/2025 7:02 AM EDT) ComponentValueRef RangeTest MethodAnalysis TimePerformed AtPathologist SignatureCOLORYELLOWYELLOWQUESTAPPEARANCECLEARCLEARQUESTSPECIFIC GRAVITY1.014 1.001 - 1.340SIVNGPN4.55.0 - 8.0QUESTGLUCOSENEGATIVENEGATIVEQUESTBILIRUBIN NEGATIVENEGATIVEQUESTKETONESNEGATIVENEGATIVEQUESTOCCULT BLOODNEGATIVENEGATIVE QUESTPROTEINNEGATIVENEGATIVEQUESTNITRITENEGATIVENEGATIVEQUESTLEUKOCYTE ESTERASE3+(A)KUXEQWJVTZQPHSCQ88-28(A)< OR = 5 /HPFQUESTRBCNONE SEEN< OR = [...] Performing Organization Information ?Site ID: QPT ?Name: [email or web address] ?Address: [address] [place] [phone] ?Director: Raul Negron MD Authorizing ProviderResult TypeResult StatusRachel E Fruth NPLAB URINE ORDERABLESFinal ResultPerforming OrganizationAddressCity/State/ZIP CodePhone Number [facility] * CBC and differential (04/05/2025 7:02 AM EDT)ComponentValueRef RangeTest MethodAnalysis TimePerformed AtPathologist SignatureWHITE BLOOD CELL COUNT6.1 3.8 - 10.8 Thousand/uLQUESTRED BLOOD CELL COUNT4.083.80 - 5.10 Million/uLQUEST AEFHSPSZTO15.211.7 - 15.5 g/xXUKUGKCGVFHGWRGD97.135.0 - 45.0 %FJLPPJKD78.480.0 - 100.0 wVUZKVMVJS39.927.0 - 33.0 utFKGVHLYWT88.032.0 - 36.0 g/dLQUEST Comment: For adults, a slight decrease in the calculated MCHC value (in the range of 30 to 32 g/dL) is most likely not clinically significant; however, it should be interpreted with caution in correlation with other red cell parameters and the patient's clinical condition. RDW12.811.0 - 15.0 %QUESTPLATELET GCHTE531236 - 400 Thousand/yCIVIQQTYK68.07.5 - 12.5 fLQUESTABSOLUTE NEUTROPHILS2,9951,500 - 7,800 cells/uLQUESTABSOLUTE LYMPHOCYTES2,975883 - 3,900 cells/uLQUESTABSOLUTE FHENZBBFL199280 - 950 cells/uL QUESTABSOLUTE OAYPPNNQAVG82806 - 500 cells/uLQUESTABSOLUTE UFFLJUFZT527 - 200 cells/vUJCFZTCPGQHOTOWWD17.1%HOXGZRYEVHZPTSOW77.8%QUESTMONOCYTES7.8%QUEST EOSINOPHILS3.6%QUESTBASOPHILS0.7%QUESTSpecimen (Source)Anatomical Location / LateralityCollection Method / VolumeCollection TimeReceived TimeBloodVenous blood specimen / Fqjdnlv3004/05/2025 7:02 AM EDT04/05/2025 7:03 AM EDT Narrative [facility] - 04/06/2025 11:20 AM EDT FASTING:YES FASTING: YES Resulting Agency Comment Performing Organization Information ?Site ID: QPT ?Name: [facility] ?Address: [address] [place] [phone] ?Director: Raul Negron MD Authorizing ProviderResult TypeResult StatusRachel E Fruth NPLAB BLOOD ORDERABLESFinal ResultPerforming OrganizationAddressCity/State/ZIP CodePhone Number [facility] * TSH (04/05/2025 7:02 AM EDT)ComponentValueRef RangeTest MethodAnalysis Time Performed AtPathologist SignatureTSH1.590.40 - 4.50 mIU/LQUESTSpecimen (Source)Anatomical Location / LateralityCollection Method / VolumeCollection TimeReceived TimeBloodVenous blood specimen / Plmqyrj5604/05/2025 7:02 AM EDT 04/05/2025 7:03 AM EDT Narrative [facility] - 04/06/2025 11:20 AM EDT FASTING:YES FASTING: YES Resulting Agency Comment Performing Organization Information ?Site ID: QPT ?Name: [facility] ?Address: [address] [place] [address], [address] [place] [address] ?Director: Raul Negron MD Authorizing ProviderResult TypeResult [...] Volume Collection TimeReceived TimeBloodVenous blood specimen / Kbrpjmx3604/05/2025 7:02 AM EDT04/05/2025 7:03 AM EDT Narrative [facility] - 04/06/2025 11:20 AM EDT FASTING:YES FASTING: YES Resulting Agency Comment Performing Organization Information ?Site ID: QPT ?Name: [facility] ?Address: [address] [place] [address], [address] [place] [address] ?Director: Raul Negron MD Authorizing ProviderResult TypeResult StatusRachel E Fruth NPLAB BLOOD ORDERABLESFinal ResultPerforming OrganizationAddressCity/State/ZIP CodePhone Number [facility] * Lipid panel (04/05/2025 7:02 AM EDT)ComponentValueRef RangeTest MethodAnalysis TimePerformed AtPathologist SignatureCHOLESTEROL, ZIGZZ003<200 mg/dLQUESTHDL OJCNWBHENXG79> OR = 50 mg/qMJJUBXLWUIQYPTZGUCC92<150 mg/dLQUESTLDL CHOLESTEROL 66mg/dL (calc)QUESTComment: Reference range: <100 Desirable range <100 mg/dL for primary prevention; <70 mg/dL for patients with CHD or diabetic patients with > or = 2 CHD risk factors. LDL-C is now calculated using the Malcolm calculation, which is a validated novel method providing better accuracy than the Friedewald equation in the estimation of LDL-C. Luís SS et al. SALUD. 2013;310(19): 8343-5678 (http://education.[employer]/faq/WYM195) CHOL/HDLC RATIO2.2<5.0 (calc)QUESTNON HDL YZUXCYEMBFA33<130 mg/dL (calc)QUEST Comment: For patients with diabetes plus 1 major ASCVD risk factor, treating to a non-HDL-C goal of <100 mg/dL (LDL-C of <70 mg/dL) is considered a therapeutic option. Specimen (Source)Anatomical Location / LateralityCollection Method / Volume Collection TimeReceived TimeBloodVenous blood specimen / Oicfxci1504/05/2025 7:02 AM EDT04/05/2025 7:03 AM EDT Narrative [facility] - 04/06/2025 11:20 AM EDT FASTING:YES FASTING: YES Resulting Agency Comment Performing Organization Information ?Site ID: QPT ?Name: [facility] ?Address: [address] [place] [address], [address] [place] [phone] ?Director: Raul Negron MD Authorizing ProviderResult TypeResult StatusRachel E Fruth NPLAB BLOOD ORDERABLESFinal ResultPerforming OrganizationAddressCity/State/ZIP CodePhone Number [facility] * (ABNORMAL) Comprehensive metabolic panel (04/05/2025 7:02 AM EDT)Component ValueRef RangeTest MethodAnalysis TimePerformed AtPathologist SignatureGlucose 9865 - 99 mg/dLQUESTComment: ? Fasting reference interval BUN87 - 25 mg/dLQUESTCreatinine0.630.60 - 1.00 mg/tGSKYKCGDNN06> OR = 60 mL/min/1.95x4QHZRVMLV/CREATININE RATIOSEE NOTE: (calc)QUESTComment: ?? Not Reported: BUN and Creatinine are within ?? reference range. ? Zzreig048997 - 146 mmol/LQUESTPotassium, Bld4.83.5 - 5.3 mmol/PPTARVVugfhvdv023 98 - 110 mmol/LQUESTCarbon Qhobyce6725 - 32 mmol/LQUESTCalcium9.28.6 - 10.4 mg/dLQUESTPROTEIN, TOTAL6.56.1 - 8.1 g/dLQUESTALBUMIN4.03.6 - 5.1 g/dLQUEST GLOBULIN2.51.9 - 3.7 g/dL (calc)QUESTALBUMIN/GLOBULIN RATIO1.61.0 - 2.5 (calc) QUESTBILIRUBIN, TOTAL0.30.2 - 1.2 mg/dLQUESTALKALINE CGDCLOHYTBB930(H)37 - 153 U/QBSYPCTRK9310 - 35 U/IQTCFMHRN727 - 29 U/LQUESTSpecimen (Source)Anatomical Location / LateralityCollection Method / VolumeCollection TimeReceived TimeBlood Venous blood specimen / Wetvfgw5804/05/2025 7:02 AM EDT04/05/2025 7:03 AM EDT Narrative [facility] - 04/06/2025 11:20 AM EDT FASTING:YES FASTING: YES Resulting Agency Comment Performing Organization Information ?Site ID: QPT ?Name: [facility] ?Address: [address] [place] [address], [address] [place] [phone] ?Director: Raul Negron MD Authorizing ProviderResult TypeResult StatusRachel E Fruth NPLAB BLOOD ORDERABLESFinal ResultPerforming OrganizationAddressCity/State/ZIP CodePhone Number [facility] * Bilateral screening mammogram (04/23/2023 1:09 PM EDT)Anatomical Region LateralityModalityBreastBilateralMammography Narrative Authorizing ProviderResult TypeResult StatusRachel E Fruth NPIMG BI PROCEDURES Final Result from Last 3 Months or Most Recently Relevant to Health Maintenance Insurance * Guarantor: Becki Kaur EAccount TypeRelation to PatientDate of BirthPhone Billing AddressPersonal/GeiiyzZsuo1955 [address] [address] MemberSubscriberPlan / Payer (Effective 2018-Present)Name:Becki Kaur Relation to Subscriber:SpouseName:JESUS KAUR Date of :1953 (Home) Address: [address] [address] Payer ID:Not on file Type:Not on file Address: [place] [phone] Care Teams Team MemberRelationshipSpecialtyStart DateEnd Date Katarzyna Leone NP [address] [place] [address] PCP - Denise Mix10/31/20 Gus Reza DO [address] [place] [phone] PCP - GeneralFamily Medicine12/08/22
--- OUTSIDE RECORDS SUMMARY | 2025-06-25 06:41 | XMS_ITS | Clinical Summary ---
Author Organization [facility] Address [address], [address] [place] [address] Care Team Providers Care Vehicle Service Attendant Name Role Phone Katarzyna Leone CHAMP - DESIGN TECHNOLOGY TEACHER Primary Care Provider [phone] Allergies Active AllergyReactionsCriticalityNoted DateCommentsMethohexitalHivesHigh 09/04/20197114RwytdnbwxzUjvznGcgr42/03/2020PenicillinsOther (See Comments)09/08/2011 Stopped breathing BedxfysdaYnzjrVlab18/03/2020 Medications MedicationSigDispense QuantityRefillsLast FilledStart DateEnd DateStatus aspirin [...] tablet 605Active Active Problems ProblemNoted DateDiagnosed DateHot worryfz7606/01/2021bnormal liver enzymes 05/28/2021Neck pain02/09/2017Muscle spasm02/09/2017Partial epilepsy with impairment of consciousness, not itlzzcypkvf80/17/2017Recurrent seizures 07/03/2016Memory loss01/06/20158724Fhkustu16/01/2014Hot flash, clihppqbhe14/15/2012 Partial epilepsy with impairment of consciousness, ocuupulgemw85/15/2012Spell of visual disturbance Overview (02/27/2017): Updating deleted diagnoses Endometrial thickening on ultrasound Encounters DateTypeDepartmentCare AxtoCcmpzpatswq65/22/2025 1:00 PM EDTTelemedicine [facility] [address] [place] [address] Ousmane Mariano MD 04/18/2025Transcribe Orders [facility] [address] [place] [address] Katarzyna Leone, CHAMP Serrano NP Syncope, unspecified syncope type (Primary Dx)04/17/2025 3:12 PM EDT - 04/17/2025 11:59 PM EDTHospital Encounter [facility] [address] [place] [address] Syncope and collapse (Primary Dx); Partial epilepsy with impairment of consciousness, intractable (HCC) Discharge Disposition: Home or Self Care04/17/2025 3:10 PM EDT - 04/19/2025 11:59 PM EDTHospital Encounter [facility] Cardiology [address] [place] [address] Discharge Disposition: Home or Self Carefrom Last [...] holidaysCommentsNoSex and Gender InformationValueDate RecordedSex Assigned at XmvkrLzdpet97/02/2021 12:59 PM EST Legal UinTwenfb61/10/2013 11:42 AM ESTGender PualjpirOitbks41/02/2021 12:59 PM ESTSexual KykranyxohiQdgpasmw13/02/2021 12:59 PM EST Last Filed Vital Signs Vital SignReadingTime TakenCommentsBlood Mlgyqgec700/8006 2:22 PM EDT Pcoxz4546 2:22 PM HWMZpxencipicv74.9 ??C (96.6 ??F)03/01/2022 12:13 PM EDTRespiratory Eabf006403/01/2022 12:13 PM EDTOxygen Ckhrkivlku47%03/01/2022 12:13 PM EDTInhaled Oxygen Concentration--Anikmq51.1 kg (203 lb)11/21/2024 4:24 PM EDT Ngqjkv637.9 cm (5' 1 )11/21/2024 4:24 PM EDTBody Mass Index38.36011/21/2024 4:24 PM EDT Plan of Treatment DateTypeDepartmentCare Team (Latest Contact Info)Gozksnxgfxi01/04/2025 3:00 PM ESTTelemedicine [facility] Neurology Specialist [address] [place] [address] Ousmane Mariano MD [address], [address] [place], [place] [id number] 4 month follow up labs seizures -[facility] MaintenanceDue DateLast DoneComments Depression Sndazv8802/19/1966DTaP/Tdap/Td vaccine (1 - Tdap)1973Colonoscopy 1999FIT/FOBT: Average risk1999Sigmoidoscopy/CT colonography 1999Shingles vaccine (1 of 2)02/20/2004A1C test (Diabetic or Prediabetic) /, 02/06/20217836Oilbks65/17/202508/, 03/22/2023, 02/20/2022, Additional history existsCOVID-19 Vaccine ( - season) 2025reast cancer axnkdj83/, 04/26/2023, 04/23/2023, Additional history existsColorectal Cancer Snngfp4804/30/2028Fecal-DNA (Cologuard): Average risk/Respiratory Syncytial Virus (RSV) or age 60 yrs+ (1 - 1-dose 75+ series)2029DEXA (modify frequency per FRAX score)Xlndnmbto26/02/2019, 11/01/2018Hepatitis C screenCompleted 01/14/2019Pneumococcal 50+ years OnobueiMtwtfceyt32/07/2021, 08/12/2019Diabetes axhfjbEovnrspcotpx11/17/2024, 02/06/2021Flu junfwiyDiloawoan13/16/2025, 06/16/2024, 05/15/2023, Additional history existsHepatitis A vaccineAged [...] this topic Procedures Procedure NamePriorityDate/TimeAssociated DiagnosisCommentsCARBAMAZEPINE LEVEL, PEQEDZzrtvmh98/16/2025 3:41 PM EDT Partial epilepsy with impairment of consciousness, intractable (HCC) EXTENDED CARDIAC HOLTER MONITOR 8D-14D (OFFICE HOOKUP & IN-HOUSE ANALYSIS) Epopssi3104/17/2025 3:20 PM EDT Syncope and collapse NERI KAILASH DIGITAL SCREEN SELF REFERRAL W OR WO CAD OEBRHNSAXNfzvuol56/22/2025 4:27 PM EDT Breast cancer screening by mammogram LIPID XWJBMQgcepuk73/17/2024 8:36 AM EDT HEMOGLOBIN U9QNngjdss96/17/2024 8:36 AM EDT HEPATITIS PANEL, NZINSZxxkdca64/15/2019 8:18 AM EDT DEXA BONE DENSITY AXIAL XQZOZSGCRkqiqrd41/02/2019 3:24 PM EDT Post-menopausal from Last 3 Months or Most Recently Relevant to Health Maintenance Results * Carbamazepine Level, Total (04/17/2025 3:41 PM EDT)ComponentValueRef RangeTest MethodAnalysis TimePerformed AtPathologist SignatureCarbamazepine Lvl5.74.0 - 12.0 ug/mL04/17/2025 3:41 PM EDTMERCY LABORATORIESCarbamazepine Dose Amount Sarvdnx6504/17/2025 3:41 PM [facility] LABCarbamazepine Date Last DoseUNK^Unknown^L04/17/2025 3:41 PM EDMARIETTA [facility] LABCarbamazepine Dose TimeUNK^Unknown^L04/17/2025 3:41 PM EDMARIETTA MEMORIAL [facility] LABSpecimen (Source)Anatomical Location / LateralityCollection Method / VolumeCollection TimeReceived TimeBloodBLOOD SPECIMEN / Unknown 04/17/2025 3:41 PM EDT04/17/2025 3:42 PM EDT Narrative Authorizing ProviderResult TypeResult StatusSubrahmanyam Chodisetty MDCHEMISTRY ORDERABLESFinal ResultPerforming OrganizationAddressCity/State/ZIP CodePhone Number [facility] [address] [place] [address], [facility] [phone] [facility] [address] [place] [address], [facility] [phone] * EXTENDED CARDIAC HOLTER MONITOR 8D-14D (OFFICE [...] study. ?? Authorizing ProviderResult TypeResult StatusRachel Fruth LOADMASTER - NPCV CARDIAC DIAGNOSTIC ORDERABLESFinal Result * [facility] KAILASH DIGITAL SCREEN SELF REFERRAL W OR [...] to the patient regarding the results. [employer] recommends annual mammograms for women 40 years and older. Performing Facility: [place] [address] Narrative 11/22/2024 9:03 AM EDT EXAMINATION: SCREENING [...] are stable. Authorizing ProviderResult TypeResult StatusRachel Fruth LOADMASTER - NPIMG MAMMOGRAPHY ORDERABLESFinal Result * Hemoglobin A1C (03/18/2024 8:36 AM EDT)ComponentValueRef RangeTest Method Analysis TimePerformed AtPathologist SignatureHemoglobin A1C5.84.0 - 6.0 % 03/18/2024 8:36 AM EDTMERCY LABORATORIESEstimated Avg Mreconh242ht/dL 03/18/2024 8:36 AM EDTMERCY LABORATORIESComment: The ADA and AACC recommend providing the estimated average glucose result to permit better patient understanding of their HBA1c result. Specimen (Source)Anatomical Location / LateralityCollection Method / Volume Collection TimeReceived Time03/18/2024 8:36 AM EDT03/18/2024 8:41 AM EDT Narrative Authorizing ProviderResult TypeResult StatusRachel Fruth LOADMASTER - NPCHEMISTRY ORDERABLESFinal ResultPerforming OrganizationAddressCity/State/ZIP CodePhone Number [facility] [address] [place] [address], [facility] [phone] [facility] [address] [place] [address], [facility] [phone] * Lipid Panel (03/18/2024 8:36 AM EDT)ComponentValueRef RangeTest MethodAnalysis TimePerformed AtPathologist SignatureCholesterol, Nnelb9957 - 199 mg/dL 03/18/2024 8:36 AM EDTMERCY LABORATORIESComment: Cholesterol Guidelines: <200 Desirable 200-240 ??Borderline >240 Undesirable HDL65>40 mg/dL03/18/2024 8:36 AM EDTMERCY LABORATORIESComment: HDL Guidelines: <40 Undesirable 40-59 ?Borderline >59 Desirable LDL Xngipvjhmjm778 - 100 mg/dL03/18/2024 8:36 AM EDTMERCY LABORATORIESComment: LDL Guidelines: <100 Desirable 100-129 ?? Near to/above Desirable 130-159 ?? Borderline >159 Undesirable Direct (measured) LDL and calculated LDL are not interchangeable tests. Chol/HDL Ratio2. 8:36 AM EDTMERCY FDVLIAXRCFNTXbthwjqhteyjb18<150 mg/dL03/18/2024 8:36 AM EDTMERCY LABORATORIESComment: Triglyceride Guidelines: <150 Desirable 150-199 ??Borderline 200-499 ??High >499 Very high Based on AHA Guidelines for fasting triglyceride, May 2012. SENL06sn/dL03/18/2024 8:36 AM EDTMERCY LABORATORIESSpecimen (Source)Anatomical Location / LateralityCollection Method / VolumeCollection TimeReceived Time 03/18/2024 8:36 AM EDT03/18/2024 8:41 AM EDT Narrative Authorizing ProviderResult TypeResult StatusRachel Fruth LOADMASTER - NPCHEMISTRY ORDERABLESFinal ResultPerforming OrganizationAddressCity/State/ZIP CodePhone Number [facility] [address] [place] [address], [facility] [phone] [facility] [address] [place] [id number], [facility] [phone] * Hepatitis Panel, Acute (01/14/2019 8:18 AM EDT)ComponentValueRef RangeTest MethodAnalysis TimePerformed AtPathologist SignatureHepatitis B Surface Ag AJHAZPMNHWFJEQUBZTAICM07/15/2019 8:18 AM EDTMERCY LABORATORIESHepatitis C Ab SEQDUPUPTTRMJACRJNTQHJ27/15/2019 8:18 AM EDTMERCY LABORATORIESComment: ? The hepatitis [...] RNA by PCR. Hep B Core Ab, JkEXAWIMMKDYJACSRUKYKKNIV77/15/2019 8:18 AM EDTMVersartis LABORATORIES Hep A UbMNXASYXPJSPURTMYGKIVLXW91/15/2019 8:18 AM EDTMVersartis LABORATORIESSpecimen (Source)Anatomical Location / LateralityCollection Method / VolumeCollection TimeReceived Time01/14/2019 8:18 AM EDT01/14/2019 8:19 AM EDT Narrative Authorizing ProviderResult TypeResult StatusRachel Fruth LOADMASTER - NPIMMUNOLOGY ORDERABLESFinal ResultPerforming OrganizationAddressCity/State/ZIP CodePhone Number [facility] [address] [place] [address], [facility] [phone] [facility] [address] [place] [address] [phone] * DEXA BONE DENSITY AXIAL SKELETON (11/01/2018 [...] left forearm and bilateral hips ??on a [employer] system. COMPARISON: None. HISTORY: ORDERING SYSTEM PROVIDED [...] left forearm and bilateral hips on a [employer] system. COMPARISON: None. HISTORY: ORDERING SYSTEM PROVIDED [...] WHO criteria. Authorizing ProviderResult TypeResult StatusRachel Fru LOADMASTER - NPIMG DEXA ORDERABLESFinal Result from Last 3 Months or Most Recently Relevant to Health Maintenance Insurance * Guarantor: Becki Kaur TypeRelation to PatientDate of BirthPhone Billing AddressPersonal/LepxkmZioq1955 [id number] [address] * Guarantor: Becki Kaur TypeRelation to PatientDate of BirthPhone Billing AddressPersonal/CpgdtlDsdr1955 [address] [address] Advance Directives * Full Code (Latest Code Status on File) Date ActivatedDate InactivatedComments09/04/2019 11:30 AM09/04/2019 4:22 PM Care Teams Team MemberRelationshipSpecialtyStart DateEnd Date Fruth, Katarzyna, LOADMASTER - MG PCP - GeneralNurse Practitioner01/14/19
--- OUTSIDE RECORDS SUMMARY | 2025-06-25 06:41 | XMS_ITS | Encounter Summary ---
Author Organization [facility] Address [address] [place] [address] Care Team Providers Care Supervisor Properties Name Role Phone Katarzyna Leone MD Primary Care Provider [phone] Encounter Details DateTypeDepartmentCare Team (Latest Contact Info)Pthamhznntz18/19/2025Orders Only [facility] [address] [place] [address] ProviderVanna MD [address] [place] [address] Carcinoid syndrome (CMS/HCC) Social History Tobacco UseTypesPacks/DayYears UsedDateSmoking Tobacco: NeverSmokeless Tobacco: NeverCommentsUnknownSex and Gender InformationValueDate RecordedSex Assigned at YrfboQnqayo76/10/2025 3:32 PM ESTLegal MtaRawuzp08/13/2025 11:14 AM EDTGender LzjcjvyiRnkhjk16/10/2025 3:32 PM ESTSexual OrientationHeterosexual or Fecvlsbn65/10/2025 3:32 PM ESTdocumented as of this encounter Plan of Treatment DateTypeDepartmentCare Team (Latest Contact Info)Mypmkfpsklf01/22/2025 1:00 PM ESTOffice Visit [facility] [address] [place] [address] Edgardo Hayes MD [address] [place] [address] documented as of this encounter Procedures Procedure NamePriorityDate/TimeAssociated DiagnosisCommentsCT ABDOMEN PELVIS W AND WO IV ELGGZRMJKzevmse29/19/2025 11:49 AM EST Carcinoid syndrome (CMS/HCC) documented [...] Katarzyna Leone MD [address] [place] [address] PCP - Uchcvdr75/12/25documented as of this encounter
== END 2025-06-25 05:13 | disposition home or self-care (01) ==
LOC: LAB 05:12
PROVIDERS: PCP Nurse Practitioner; Visit Provider Internal Medicine Cardiovascular Disease
DX: E34.00 Carcinoid syndrome, unspecified (principal)
CPT/HCPCS: 36415

== ENCOUNTER 2025-06-27 08:44 | Outpatient (OUT) | payer BC, MEDICARE, SELFPAY ==
--- OUTSIDE RECORDS SUMMARY | 2025-06-27 08:48 | XMS_ITS | Clinical Summary ---
Author Organization [facility] Address [address] [place] [address] Care Team Providers Care Administrative Services Manager Name Role Phone Katarzyna Leone MD Primary Care Provider [phone] Allergies Active AllergyReactionsCriticalityNoted DateCommentsMeperidineHives,Other, KntjddpRenl06/03/2020MethohexitalHives,Other,DrzayyjVvut56/03/2020MidazolamHives ,Other,MxickkkCgkr93/03/2020PenicillinsOther,Hqujiib5809/08/2011 Stopped breathing Stopped breathing Stopped breathing Stopped [...] 81 mg by mouth in the morning.Active fhegidbxrgxj-agj-wfex-FA-vit K 18 mg iron-400 mcg-25 mcg tablet Take 200 mg by mouth 1 (one) time each day.Active zinc gluconate 50 mg tablet Take 50 mg by mouth in the morning.Active calcium carbonate-vitamin D3 500 mg-5 mcg (200 unit) tablet Take 1 tablet by mouth in the morning.Active Active Problems ProblemNoted DateDiagnosed DateEndometrial thickening on ptpceterws56/10/2025 Spell of visual drpbvhuaqsw94/10/2025 Overview (06/11/2025): Updating deleted diagnoses Abdominal pain, /17/2022 Overview (06/11/2025): Added automatically from request for surgery [id number] Xvoioczh08/17/2022 Overview (06/11/2025): Added automatically from request for surgery [id number] Chronic cough03/18/2022 Overview (06/11/2025): Added automatically from request for surgery [id number] Abnormal liver fclbkay35/27/2546Hcvedanwcbpf39/30/2020Vitamin D deficiency 08/25/20185133Nmbhscdbovkpdz47/15/2019Morbid uvdzstq5208/16/2018Essential hypertension 08/15/2018Gastroesophageal reflux disease with sdtgaapalxq42/14/2019Hiatal wymrjm2808/15/2018 Overview (06/11/2025): Added automatically from request for surgery [id number] Seborrheic shilvhfyc30/14/2019Muscle spasm02/09/2017Neck pain02/09/2017Recurrent wemukejk47/02/2016Memory loss01/06/20150411Lompcll04/01/2014Complex partial seizures with consciousness vaconsgx94/15/2012Partial epilepsy with impairment of consciousness, fixgarxpuyx98/15/2012Hot flash, xedyuhfdqz66/15/2012 Encounters DateTypeDepartmentCare JxmaCmmxbwatqqn48/19/2025Orders Only [facility] [address] [facility] [address] Vanna Smith MD Carcinoid syndrome (CMS/HCC)06/11/2025 3:40 PM ESTOffice Visit [facility] [address] [facility] [address] Edgardo Hayes MD Syncope and collapse (Primary Dx); Hyperthermia; Abdominal mass, right upper oyrmvdcx27/10/2025Orders Only [facility] [address] [facility] [address] Anastasiia Villegas MA Carcinoid syndrome (CMS/HCC) (Primary Dx)from Last 3 Months Family History Medical HistoryRelationNameCommentsHeart diseaseBrotherCancerFatherHeart disease FatherCancerSisterRelationNameStatusCommentsBrotherFatherDeceasedMotherDeceased Sister Social History Tobacco UseTypesPacks/DayYears UsedDateSmoking Tobacco: NeverSmokeless Tobacco: Never Tobacco Cessation:Counseling Given: Not Answered CommentsUnknownSex and Gender InformationValueDate RecordedSex Assigned at DuluiQjtycl87/10/2025 3:32 PM ESTLegal OskMrjkqc28/13/2025 11:14 AM EDTGender SiyeuqbsHbwmli09/10/2025 3:32 PM ESTSexual OrientationHeterosexual or Straight 06/11/2025 3:32 PM EST Last Filed Vital Signs Vital SignReadingTime TakenCommentsBlood Ufwcqgqk468/8906/11/2025 4:37 PM EST Qcagn528906/11/2025 4:37 PM ESTTemperature--Respiratory Rate--Oxygen Ppyxxldfam48% 06/11/2025 4:37 PM ESTInhaled Oxygen Concentration--Cjdocu89.5 kg (193 lb) 06/11/2025 4:21 PM ROWMlbwkq634.5 cm (5' 2 )06/11/2025 4:21 PM ESTBody Mass Index35. 4:21 PM EST Plan of Treatment DateTypeDepartmentCare Team (Latest Contact Info)Pxywaobehiu61/01/2025 1:00 PM ESTOffice Visit [facility] [address] [place] [address] Edgardo Hayes MD [address] [place] [address] Health MaintenanceDue DateLast DoneCommentsCT Lisoafemecno1954Colonoscopy 1955FOBT1954Rrfvwuibmeoki1954Depression Shjlmzzcq32/21/1966 Adult Czklqrb6102/20/1976Zoster Vaccines (1 of 2)02/20/2004Fall Risk Screening 2019COVID-19 Vaccine ( season)2025FIT/ Qzqwtsqdb42, 04/23/2023olorectal Cancer Hfipefffp14/29/2028 FIT-DNAPneumococcal Vaccine: 50+ VcxrtFihyyvawe22/07/2021, 08/12/2019Influenza TxrqgcyJkyyucwhj44/16/2025, 06/16/2024, 05/15/2023, Additional history existsHIB VaccinesAged OutNo [...] DiagnosisCommentsCT ABDOMEN PELVIS W AND WO IV OZNBQVPABizksav78/19/2025 11:49 AM EST Carcinoid syndrome (CMS/HCC) ECG 12 LEAD UNIT KVAYWRDIWPelasxm45/10/2025 4:13 PM EST Syncope and collapse from [...] Leone MD [address] [place] [address] PCP - Fsmajuo31/12/25
--- OUTSIDE RECORDS SUMMARY | 2025-06-27 08:48 | XMS_ITS | Encounter Summary ---
Author Organization [facility] Address [address] [place] [address] Care Team Providers Care Sap Technical Developer Name Role Phone Katarzyna Leone MD Primary Care Provider [phone] Encounter Details DateTypeDepartmentCare Team (Latest Contact Info)Baildmvnqcf85/19/2025Orders Only [facility] [address] [place] [address] ProviderVanna MD [address] [place] [address] Carcinoid syndrome (CMS/HCC) Social History Tobacco UseTypesPacks/DayYears UsedDateSmoking Tobacco: NeverSmokeless Tobacco: NeverCommentsUnknownSex and Gender InformationValueDate RecordedSex Assigned at AsxfjXtjmhg52/10/2025 3:32 PM ESTLegal McjXuafxi00/13/2025 11:14 AM EDTGender NotdvmohGtjwec15/10/2025 3:32 PM ESTSexual OrientationHeterosexual or Lzfxagne75/10/2025 3:32 PM ESTdocumented as of this encounter Plan of Treatment DateTypeDepartmentCare Team (Latest Contact Info)Huqdptkngiw65/01/2025 1:00 PM ESTOffice Visit [facility] [address] [place] [address] Edgardo Hayes MD [address] [place] [address] documented as of this encounter Procedures Procedure NamePriorityDate/TimeAssociated DiagnosisCommentsCT ABDOMEN PELVIS W AND WO IV KSKXHGFKChgmxbz83/19/2025 11:49 AM EST Carcinoid syndrome (CMS/HCC) documented [...] Katarzyna Leone MD [address] [place] [address] PCP - Eebulys77/12/25documented as of this encounter
--- OUTSIDE RECORDS SUMMARY | 2025-06-27 08:48 | XMS_ITS | Clinical Summary ---
Author Organization [facility] Address [address] [place] [address] Care Team Providers Care Manager Law Name Role Phone Katarzyna Leone ERIKA Primary Care Provider [phone] Allergies Active AllergyReactionsCriticalityNoted DateCommentsMeperidineHives,UnknownHigh 09/04/2019MethohexitalHives,DmempmrCqld80/03/2020MidazolamHives,UnknownHigh 09/04/2019PenicillinsOther (See Comments),Cpvhinx2309/08/2011 Stopped breathing Medications MedicationSigDispense QuantityRefillsLast FilledStart DateEnd [...] .Active Active Problems ProblemNoted DateDiagnosed DateAbdominal pain, pyqrmduqsk04/17/2022 Overview (03/18/2022): Added automatically from request for surgery [id number] Chronic cough03/18/2022 Overview (03/18/2022): Added automatically from request for surgery [id number] Zkjpreng86/17/2022 Overview (03/18/2022): Added automatically from request for surgery [id number] Hiatal zkapoq2603/18/2022 Overview (03/18/2022): Added automatically from request for surgery [id number] Social History Tobacco UseTypesPacks/DayYears UsedDateSmoking Tobacco: NeverSmokeless Tobacco: Never Tobacco Cessation:Counseling Given: Not Answered Alcohol UseStandard Drinks/WeekCommentsNever0 (1 standard drink = 0.6 oz pure alcohol)CommentsNoSex and Gender InformationValueDate RecordedSex Assigned at BirthNot on fileLegal JxxXqrrbo33/02/2022 1:24 PM EDTGender Identity Ghjrmk2103/18/2022 10:42 AM EDTSexual TysimimcfuiNbozcrjd58/17/2022 10:42 AM EDT Last Filed Vital Signs Vital SignReadingTime TakenCommentsBlood Cvrtqdjo177/8107/03/2022 2:58 PM EST Jdidi079707/03/2022 2:58 PM BPKMsyzqvyrzye10.4 ??C (97.5 ??F)05/18/2022 2:47 PM EDTRespiratory Gfrv5796 2:47 PM EDTOxygen Tdxbynyijy87%07/03/2022 2:58 PM ESTInhaled Oxygen Concentration--Mqjwrt15.2 kg (190 lb)07/03/2022 2:58 PM EST Qkosnu905.5 cm (5' 2 )07/03/2022 2:58 PM ESTBody Mass Index34.7507/03/2022 2:58 PM EST Plan of Treatment Health MaintenanceDue DateLast DoneCommentsCT Woytoawhdrvt1954Colonoscopy 4Colorectal Cancer Screening/Vqpsurtswt1954Dexa Scan1954 Fecal DNA1954Fecal occult blood test (FOBT,FIT)1954Wellness Visit 1957Depression Screening/Follow-Up (PHQ-2/9)1966Hepatitis C Abcjompbt25/21/1972Tetanus/Diphtheria/Pertussis (1 - Tdap)1973Flexible tpoqayvnvthub37/21/2004Zoster Vaccines (1 of 2)02/20/2004Falls Risk Assessment 02/19/20198091Klfnowjca58, 08/12/2020OVID-19 Vaccine (1 - 2024- season)2025Influenza Vaccine (#1)501/06/2022, 05/23/2020, 06/23/2019, Additional history existsRSV Vaccines (1 - 1-dose 75+ series) 2029Pneumococcal Vaccine: 50+ PmfmzOufsjqfjt95/07/2021, 08/12/2019, 08/11/2019HIB VaccinesAged OutNo longer eligible based [...] on 05/18/2022 by Pedrito Staley MD at [facility] MeshN/A: EsophagusDAVOL [id number] / NA / [id number] Insurance * Guarantor: Becki Damon EAccount TypeRelation to PatientDate of BirthPhone Billing AddressPersonal/GhcqdkOcqt1955 [phone] (Home) [address] [place] [address] MemberSubscriberPlan / Payer (Effective 2021-Present)Name:Becki Damon Member ID:[id number] Relation to Subscriber:SelfName:Becki Damon Subscriber ID:[id number] Payer ID:Not on file Group ID:Not on file Type:Not on file Address: [facility] [address] [employer] A CLAIMS [address] [address] [place] [address] Care Teams Team MemberRelationshipSpecialtyStart DateEnd Date Katarzyna Leone CNP [address] [place] [address] PCP - GeneralFamily Medicine03/03/22 Vashti Cole [address] [place], [place] [id number] Referring PhysicianNurse Practitioner03/03/22
--- OUTSIDE RECORDS SUMMARY | 2025-06-27 08:48 | XMS_ITS | Clinical Summary ---
Author Organization [facility] Address [address] [facility] [place] [address] Care Team Providers Care Special Needs Caregiver Name Role Phone Katarzyna Leone ENVIRONMENTAL ASSISTANT Unavailable [phone] Gus Reza DO Primary Care Provider Allergies Active AllergyReactionsCriticalityNoted DateCommentsMeperidineHives,OtherHigh 09/04/2019Meperidine SvbAjxhqjb25/08/2021MethohexitalHives,Other,UnknownHigh 09/04/2019MidazolamHives,Other,SuytzlwZfhs48/03/2020PenicillinsUnknown,Other 09/08/2011 Stopped breathing Stopped breathing Medications MedicationSigDispense [...] 411/10/2024Discontinued Active Problems ProblemNoted DateDiagnosed DateAbnormal liver fljypjk05/27/2021Constipation 07/31/2020Vitamin D lcdpeyyvqk83/24/3792Mfmqlakkhxlbyf41/15/2019Morbid obesity 08/16/2018Complex partial seizures with consciousness lajwrglv97/14/2019 Essential nnsoddnnsgiq30/14/2019Gastroesophageal reflux disease with esophagitis 08/15/2018Hiatal zytrpb1208/15/2018 Overview (03/21/2023): Added automatically from request for surgery [id number] Seborrheic mdclahuxw22/14/2019Memory loss01/06/2015Focal epilepsy with impairment of rrrtonnczzdyh40/15/2012 Resolved Problems ProblemNoted DateDiagnosed DateResolved DateEndometrial thickening on ultrasound Spell of visual pbgudsygzoh13 Overview (03/21/2023): Updating deleted diagnoses Abdominal pain, jzlzbuaptj59 Overview (03/21/2023): Added automatically from request for surgery [id number] Kobqwhed40 Overview (03/21/2023): Added automatically from request for surgery [id number] Chronic cough Overview (03/21/2023): Added automatically from request for surgery [id number] Hot xfqgaqc45bnormal vnwjoqyno91Muscle spasmNeck painRecurrent seizures FatigueHot flash, cslbmgxybn89/15/2012 03/21/2023 Encounters DateTypeDepartmentCare PqafLrlcyzqbiaj98/19/2025Telephone [facility] [place] [address] [place] [address] Katarzyna Leone NP abnormal CT06/20/2025bstract [address] [place] [address] Katarzyna Leone NP 06/05/2025Refill [address] [place] [address] Katarzyna Leone NP Mixed umnsjikvtxrekl00/10/2025Telephone [facility] [place] [address] Katarzyna Leone NP heart monitor wjvjsvu6905/08/2025Telephone [facility] [place] [address] Katarzyna Leone NP negative lokxunde39/16/2025 2:30 PM EDTOffice Visit [facility] [address] [place] [address] Katarzyna Leone, [place] Medicare annual wellness visit, [...] Provider, Generic External Data 04/17/2025amboo flowsheet [facility] [address] [place] [address] Katarzyna Leone NP 04/17/20252861Oyiazv17/15/9770Sgzwwl90/27/2025Telephone [facility] [address] [place] [address] Nayeli Baird MA Lab Ordersfrom Last 3 Months Immunizations ImmunizationAdministration DatesNext DueInfluenza, High Dose Seasonal, Preservative Free04/17/2025,06/16/2024,05/04/2019Influenza, High-dose Seasonal, Quadrivalent, Preservative Free05/15/2023,06/08/2022,05/23/2020Influenza, injectable, quadrivalent, preservative free08/12/2021,06/23/2019,05/31/2018 Influenza, seasonal, injectable, preservative free06/01/2018Pneumococcal Conjugate PCV 13011Pneumococcal Polysaccharide EWPU4682 Family History Medical HistoryRelationNameCommentsDiabetesFatherHeart diseaseFatherMelanoma FatherRelationNameStatusCommentsFatherDeceasedMotherDeceased Social [...] a week 04/05/2024How often do you attend scientology or pentecostalism services?More than 4 times per year04/05/2024o you belong to any clubs or organizations such as scientology groups, unions, fraternal or athletic groups, or school groups?Yes04/05/2024How often do you attend meetings of the clubs or organizations you belong to?More than 4 times per year04/05/2024re you , , , , never , or living with a partner?Jxmrbbb6304/05/2024UDIT-CAnswerDate RecordedQ1: How often do you have a [...] heating?Not hard at all04/05/2024HQ-2AnswerDate RecordedPatient Health Questionnaire-2 Mhqen170[facility]hr[facility] [place] of Occupational Health - Occupational Stress QuestionnaireAnswerDate [...] were you homeless or living in a prison (including now)?No04/05/2024CommentsUnknownSex and Gender InformationValueDate RecordedSex Assigned at BirthNot on fileLegal SexFemale 10/14/2022 8:28 PM EDTGender GycqbdxdSffyqr12/08/2024 4:54 PM ESTSexual OrientationNot on file Last Filed Vital Signs Vital SignReadingTime TakenCommentsBlood Biimwwyr455/78004/17/2025 12:57 PM EDT Stlqh28231/16/2025 12:57 PM LKBUlgvtbpbbtk01.7 ??C (96.2 ??F)04/17/2025 12:57 PM EDTRespiratory Rate--Oxygen Qesulyfjdg81%04/17/2025 12:57 PM EDTInhaled Oxygen Concentration--Dzcqda79.5 kg (195 lb 3.2 oz)04/17/2025 12:57 PM EYYItprwv455 cm (5' 3 )04/17/2025 12:57 PM EDTBody Mass Index34.58004/17/2025 12:57 PM EDT Plan of Treatment DateTypeDepartmentCare Team (Latest Contact Info)Slawsltuseo45/17/2026 2:40 PM ESTOffice Visit [facility] [address] [place] [address] Sonam Chavez, LYNDSAY [address] [place] [address] 10/15/2025 2:00 PM EDTOffice Visit [facility] [address] [place] [address] Katarzyna Leone NP [address] [place] [address] [facility] DateLast DoneCommentsCT Pkjwxbythzrk1954Colonoscopy 1955FIT1955FOBT1955 7483Vlclfcnsfzsvt1954OVID-19 Vaccine (2024- season)04/02/20251689Jeglhlbcx61/22/94264111/21/2024, 11/21/2024, 04/26/2023, Additional history existsColorectal Cancer Hcktaktiq00/29/2028 FIT-DNAPneumococcal Vaccine: 65+ DpdzvDsxuyaeoy32/07/2021, 08/12/2019Influenza UlclzeyUhercbklz41/16/2025, 06/16/2024, 05/15/2023, Additional history exists Procedures Procedure NamePriorityDate/TimeAssociated DiagnosisCommentsLAB COLOGUARD?? COLON CANCER HFEMIFIbfrins34/29/2025 6:50 AM EDT Encounter for screening for malignant neoplasm of colon MHPT SPOHRSSPWVXEDZieqqje29/16/2025 3:41 PM EDT STDNNuuvwqu68/04/2025 7:02 AM EDT URINALYSIS KGBQHNWhioogy42/04/2025 7:02 AM EDT Localization-related (focal) (partial) symptomatic epilepsy and epileptic syndromes with complex partial seizures, not intractable, without status epilepticus (HCC) Mixed hyperlipidemia Hyperglycemia MICROALBUMIN / CREATININE URINE KBWQUPhzioyo59/04/2025 7:02 AM EDT Localization-related (focal) (partial) symptomatic epilepsy and epileptic syndromes with complex partial seizures, not intractable, without status epilepticus (HCC) Mixed hyperlipidemia Hyperglycemia LIPID KGLLLIurybsc37/04/2025 7:02 AM EDT Localization-related (focal) (partial) symptomatic epilepsy and epileptic syndromes with complex partial seizures, not intractable, without status epilepticus (HCC) Mixed hyperlipidemia Hyperglycemia CEYIwfmwwi65/04/2025 7:02 AM EDT Localization-related (focal) (partial) symptomatic epilepsy and epileptic syndromes with complex partial seizures, not intractable, without status epilepticus (HCC) Mixed hyperlipidemia Hyperglycemia HEMOGLOBIN W0AUkapuep30/04/2025 7:02 AM EDT Localization-related (focal) (partial) symptomatic epilepsy and epileptic syndromes with complex partial seizures, not intractable, without status epilepticus (HCC) Mixed hyperlipidemia Hyperglycemia COMPREHENSIVE METABOLIC PSACFEhhyova80/04/2025 7:02 AM EDT Localization-related (focal) (partial) symptomatic epilepsy and epileptic syndromes with complex partial seizures, not intractable, without status epilepticus (HCC) Mixed hyperlipidemia Hyperglycemia CBC (INCLUDES DIFF/PLT)Ssxgtba7304/05/2025 7:02 AM EDT Localization-related (focal) (partial) symptomatic epilepsy and epileptic syndromes with complex partial seizures, not intractable, without status epilepticus (HCC) Mixed hyperlipidemia Hyperglycemia BI MAMMOGRAM SCREENING SNCZISWELPlfxuxn76/22/2023 1:09 PM EDT Encounter for screening mammogram for malignant neoplasm of breast from Last 3 Months or Most Recently Relevant to Health Maintenance Results * Cologuard?? colon cancer screening (04/30/2025 6:50 AM EDT)ComponentValueRef RangeTest MethodAnalysis TimePerformed AtPathologist SignatureNONINV COLON CA DNA+OCC BLD SCRN STL-NHEAnrfwwqzDxeisbsx58/07/2025 5:00 AM EDTEXInspire Commerce ([place] #:[id number])Comment: The Cologuard (TM) test was performed on [...] (Rich Morin al, N Engl J Med 2014;370(14):4198-4452) The normal value (reference range) for this assay is negative. COLOGUARD RE-SCREENING RECOMMENDATION: Periodic colorectal cancer screening is an important part ofpreventive healthcare for asymptomatic individuals at average risk for colorectal cancer. Followinga negative Cologuard result, the [place] [employer] Society and U.S. Multi-Society Task Force screening guidelines recommend a Cologuard re-screening interval of 3 years. References: [place] [employer] Guideline for Colorectal Cancer Screening: https://www.cancer.or g/cancer/nhaku-qsiwmw-tuxqhd/sxtdmfywn-vstzztetf-rkpiurt/acs-recommendations.htm layla; Darren CORONA, Gopal BENITEZ, Kaylah XiaoK, Colorectal Cancer Screening: Recommendations for Physicians and Patients from the U.S. Multi-Society Task Force on Colorectal Cancer Screening , Am J Gastroenterology 2017; 112:5996-3555. TEST DESCRIPTION: Composite algorithmic analysis of stool [...] colonoscopy. (Rich Oliveira, N Engl J Med 2014;370(14):6972-1256.) Cologuard may produce a false negative or false positive result (no colorectal cancer or precancerous polyp present at colonoscopy follow up). A negative Cologuard test result does not guarantee the absence of CRC or advanced adenoma (pre-cancer). The current Cologuard screening interval is every 3 years. ([place] [employer] Society and U.S. Multi-Society Task Force). Cologuard performance data in a 10,000 patient pivotal study using colonoscopy as the reference method can be accessed at the following location: www.[employer].Training Intelligence/results. Additional description of the Cologuard test process, warnings and precautions can be found at www.cologuard.com. Specimen (Source)Anatomical Location / LateralityCollection Method / Volume Collection TimeReceived TimeStool specimen (specimen)04/30/2025 6:50 AM EDT 05/03/2025 11:15 AM EDT Narrative Authorizing ProviderResult TypeResult StatusRachel E Fruth NPLAB MOLECULAR DIAGNOSTICS ORDERABLESFinal ResultPerforming OrganizationAddressCity/State/ZIP CodePhone Number GetNotes (CLIA #:[id number]) [place] [address], * MHPT CARBAMAZEPINE (04/17/2025 3:41 PM EDT)ComponentValueRef [...] Performing Organization Information ?Site ID: QPT ?Name: [facility] ?Address: [address] [place] [address], [address] [place] [address] ?Director: Raul Negron MD Authorizing ProviderResult TypeResult StatusRachel E Fruth NPQUESTFinal Result Performing OrganizationAddressCity/State/[facility] CodePhone Number [facility] * Microalbumin / creatinine urine ratio (04/05/2025 7:02 AM EDT)ComponentValue Ref RangeTest MethodAnalysis TimePerformed AtPathologist SignatureCREATININE, RANDOM OQGJV63063 - 275 mg/dLQUESTALBUMIN, URINE0.4See Note: mg/dLQUEST Comment: [...] specimen obtained by clean catch procedure / Mwyrqmw5504/05/2025 7:02 AM EDT04/05/2025 7:03 AM EDT Narrative [facility] - 04/06/2025 11:20 AM EDT FASTING:YES FASTING: YES Resulting Agency Comment Performing Organization Information ?Site ID: QPT ?Name: [facility] ?Address: [address] [place] [address], [address] [place] [phone] ?Director: Raul Negron MD Authorizing ProviderResult TypeResult StatusRachel E Fruth NPLAB URINE ORDERABLESFinal ResultPerforming OrganizationAddressCity/State/ZIP CodePhone Number [facility] * (ABNORMAL) Urinalysis with reflex microscopic (04/05/2025 7:02 AM EDT) ComponentValueRef RangeTest MethodAnalysis TimePerformed AtPathologist SignatureCOLORYELLOWYELLOWQUESTAPPEARANCECLEARCLEARQUESTSPECIFIC GRAVITY1.014 1.001 - 1.675WVSYSAG1.55.0 - 8.0QUESTGLUCOSENEGATIVENEGATIVEQUESTBILIRUBIN NEGATIVENEGATIVEQUESTKETONESNEGATIVENEGATIVEQUESTOCCULT BLOODNEGATIVENEGATIVE QUESTPROTEINNEGATIVENEGATIVEQUESTNITRITENEGATIVENEGATIVEQUESTLEUKOCYTE ESTERASE3+(A)VBOESQFUGODPIQLR20-82(A)< OR = 5 /HPFQUESTRBCNONE SEEN< OR = [...] Performing Organization Information ?Site ID: QPT ?Name: [facility] ?Address: [address] [place] [phone] ?Director: Raul Negron MD Authorizing ProviderResult TypeResult StatusRachel E Fruth NPLAB URINE ORDERABLESFinal ResultPerforming OrganizationAddressCity/State/ZIP CodePhone Number [facility]ST * CBC and differential (04/05/2025 7:02 AM EDT)ComponentValueRef RangeTest MethodAnalysis TimePerformed AtPathologist SignatureWHITE BLOOD CELL COUNT6.1 3.8 - 10.8 Thousand/uLQUESTRED BLOOD CELL COUNT4.083.80 - 5.10 Million/uLQUEST GVOTKWZXQV54.211.7 - 15.5 g/rEIPDJSHZXSNDIPAY79.135.0 - 45.0 %EMOHVNSK95.480.0 - 100.0 zUEOLQTBLR64.927.0 - 33.0 dqJCUSTSBZW72.032.0 - 36.0 g/dLQUEST Comment: For adults, a slight decrease in the calculated MCHC value (in the range of 30 to 32 g/dL) is most likely not clinically significant; however, it should be interpreted with caution in correlation with other red cell parameters and the patient's clinical condition. RDW12.811.0 - 15.0 %QUESTPLATELET TQBDE185963 - 400 Thousand/gGSMSIKMXP02.07.5 - 12.5 fLQUESTABSOLUTE NEUTROPHILS2,9951,500 - 7,800 cells/uLQUESTABSOLUTE LYMPHOCYTES2,772151 - 3,900 cells/uLQUESTABSOLUTE WJNJIZEWU684376 - 950 cells/uL QUESTABSOLUTE OXJRFPWELMA89701 - 500 cells/uLQUESTABSOLUTE SHBVNDYJC195 - 200 cells/fTNBIIGOSNOWTOXSSR20.1%LQWHURABMFCQZDFQ34.8%QUESTMONOCYTES7.8%QUEST EOSINOPHILS3.6%QUESTBASOPHILS0.7%QUESTSpecimen (Source)Anatomical Location / LateralityCollection Method / VolumeCollection TimeReceived TimeBloodVenous blood specimen / Clznuqb6804/05/2025 7:02 AM EDT04/05/2025 7:03 AM EDT Narrative [facility] - 04/06/2025 11:20 AM EDT FASTING:YES FASTING: YES Resulting Agency Comment Performing Organization Information ?Site ID: QPT ?Name: [facility] ?Address: [address] [place] [phone] ?Director: Raul Negron MD Authorizing ProviderResult TypeResult StatusRachel E Fruth NPLAB BLOOD ORDERABLESFinal ResultPerforming OrganizationAddressCity/State/ZIP CodePhone Number [facility]ST * TSH (04/05/2025 7:02 AM EDT)ComponentValueRef RangeTest MethodAnalysis Time Performed AtPathologist SignatureTSH1.590.40 - 4.50 mIU/LQUESTSpecimen (Source)Anatomical Location / LateralityCollection Method / VolumeCollection TimeReceived TimeBloodVenous blood specimen / Nxhgiyz5504/05/2025 7:02 AM EDT 04/05/2025 7:03 AM EDT Narrative [facility] - 04/06/2025 11:20 AM EDT FASTING:YES FASTING: YES Resulting Agency Comment Performing Organization Information ?Site ID: QPT ?Name: [facility] ?Address: [address] [place] [address], [address] [place] [address] ?Director: Raul Negron MD Authorizing ProviderResult TypeResult [...] Volume Collection TimeReceived TimeBloodVenous blood specimen / Kittelf5404/05/2025 7:02 AM EDT04/05/2025 7:03 AM EDT Narrative [facility] - 04/06/2025 11:20 AM EDT FASTING:YES FASTING: YES Resulting Agency Comment Performing Organization Information ?Site ID: QPT ?Name: [facility] ?Address: [address] [place] [address], [address] [place] [address] ?Director: Raul Negron MD Authorizing ProviderResult TypeResult StatusRachel E Fruth NPLAB BLOOD ORDERABLESFinal ResultPerforming OrganizationAddressCity/State/ZIP CodePhone Number [facility] * Lipid panel (04/05/2025 7:02 AM EDT)ComponentValueRef RangeTest MethodAnalysis TimePerformed AtPathologist SignatureCHOLESTEROL, ZYYFQ670<200 mg/dLQUESTHDL ZZARVKLUABJ58> OR = 50 mg/hEYTXVZDSZCMQFEVHFCZ26<150 mg/dLQUESTLDL CHOLESTEROL 66mg/dL (calc)QUESTComment: Reference range: <100 Desirable range <100 mg/dL for primary prevention; <70 mg/dL for patients with CHD or diabetic patients with > or = 2 CHD risk factors. LDL-C is now calculated using the Malcolm calculation, which is a validated novel method providing better accuracy than the Friedewald equation in the estimation of LDL-C. Luís SS et al. SALUD. 2013;310(19): 6200-5988 (http://education.[employer].Training Intelligence/faq/DRK517) CHOL/HDLC RATIO2.2<5.0 (calc)QUESTNON HDL KEAYTOLJAOB35<130 mg/dL (calc)QUEST Comment: For patients with diabetes plus 1 major ASCVD risk factor, treating to a non-HDL-C goal of <100 mg/dL (LDL-C of <70 mg/dL) is considered a therapeutic option. Specimen (Source)Anatomical Location / LateralityCollection Method / Volume Collection TimeReceived TimeBloodVenous blood specimen / Mjxxmlh2404/05/2025 7:02 AM EDT04/05/2025 7:03 AM EDT Narrative [facility] - 04/06/2025 11:20 AM EDT FASTING:YES FASTING: YES Resulting Agency Comment Performing Organization Information ?Site ID: QPT ?Name: [facility] ?Address: [address] [place] [address], [address] [place] [phone] ?Director: Raul Negron MD Authorizing ProviderResult TypeResult StatusRachel E Fruth NPLAB BLOOD ORDERABLESFinal ResultPerforming OrganizationAddressCity/State/ZIP CodePhone Number [facility]ST * (ABNORMAL) Comprehensive metabolic panel (04/05/2025 7:02 AM EDT)Component ValueRef RangeTest MethodAnalysis TimePerformed AtPathologist SignatureGlucose 9865 - 99 mg/dLQUESTComment: ? Fasting reference interval BUN87 - 25 mg/dLQUESTCreatinine0.630.60 - 1.00 mg/vCQILPCBZFC71> OR = 60 mL/min/1.67v0WDGMFNRF/CREATININE RATIOSEE NOTE: (calc)QUESTComment: ?? Not Reported: BUN and Creatinine are within ?? reference range. ? Vpiiij910193 - 146 mmol/LQUESTPotassium, Bld4.83.5 - 5.3 mmol/CDBTLEYxozhvqm166 98 - 110 mmol/LQUESTCarbon Uiaqvvu0110 - 32 mmol/LQUESTCalcium9.28.6 - 10.4 mg/dLQUESTPROTEIN, TOTAL6.56.1 - 8.1 g/dLQUESTALBUMIN4.03.6 - 5.1 g/dLQUEST GLOBULIN2.51.9 - 3.7 g/dL (calc)QUESTALBUMIN/GLOBULIN RATIO1.61.0 - 2.5 (calc) QUESTBILIRUBIN, TOTAL0.30.2 - 1.2 mg/dLQUESTALKALINE EIQHXDOHUHO366(H)37 - 153 U/RSREAUOHO9734 - 35 U/KLLCZYTQY157 - 29 U/LQUESTSpecimen (Source)Anatomical Location / LateralityCollection Method / VolumeCollection TimeReceived TimeBlood Venous blood specimen / Sbcomkw6304/05/2025 7:02 AM EDT04/05/2025 7:03 AM EDT Narrative [facility] - 04/06/2025 11:20 AM EDT FASTING:YES FASTING: YES Resulting Agency Comment Performing Organization Information ?Site ID: QPT ?Name: [facility] ?Address: [address] [place] [address], [address] [place] [phone] ?Director: Raul Negron MD Authorizing ProviderResult TypeResult StatusRachel E Fruth NPLAB BLOOD ORDERABLESFinal ResultPerforming OrganizationAddressCity/State/ZIP CodePhone Number [facility]ST * Bilateral screening mammogram (04/23/2023 1:09 PM EDT)Anatomical Region LateralityModalityBreastBilateralMammography Narrative Authorizing ProviderResult TypeResult StatusRachel E Fruth NPIMG BI PROCEDURES Final Result from Last 3 Months or Most Recently Relevant to Health Maintenance Insurance * Guarantor: Becki Kaur EAccount TypeRelation to PatientDate of BirthPhone Billing AddressPersonal/JhnsqtNskd1955 [address] [address] MemberSubscriberPlan / Payer (Effective 2018-Present)Name:Becki Kaur Relation to Subscriber:SpouseName:JESUS KAUR Date of :1952 (Home) Address: [address] [address] Payer ID:Not on file Type:Not on file Address: [place] [phone] Care Teams Team MemberRelationshipSpecialtyStart DateEnd Date Katarzyna Leone NP [address] [place] [address] PCP - Denise Mix10/31/20 Gus Reza DO [address] [place] [id number] PCP - GeneralFamily Medicine12/08/22
--- OUTSIDE RECORDS SUMMARY | 2025-06-27 08:48 | XMS_ITS | Encounter Summary ---
Author Organization [facility] Address [address] [place] [address] Care Team Providers Care Golf Club Manager Name Role Phone Katarzyna Leone DAIRY QUALITY ASSURANCE OFFICER Unavailable [phone] Gus Reza DO Primary Care Provider [phone] Encounter Details DateTypeDepartmentCare Team (Latest Contact Info)Lmnjczentyg68/19/2025bstract [facility] [address] [place] [address] Katarzyna Leone DAIRY QUALITY ASSURANCE OFFICER [address] [place] [address] Social History Tobacco UseTypesPacks/DayYears UsedDateSmoking [...] relatives?Once a week04/05/2024How often do you attend spiritism or spiritism services?More than 4 times per year04/05/2024o you belong to any clubs or organizations such as spiritism groups, unions, fraternal or athletic bhargav ups, or school groups?Yes04/05/2024How often do you attend meetings of the clubs or organizations you belong to?More than 4 times per year04/05/2024re you , , , , never , or living with a partner? Oytihqt3104/05/2024UDIT-CAnswerDate RecordedQ1: How often do you have a [...] hard at all04/05/2024HQ-2AnswerDate RecordedPatient Health Questionnaire-2 Score0 04/17/2025[facility] [place] of Occupational Health - Occupational Stress QuestionnaireAnswerDate RecordedDo you feel stress - tense, restless, nervous, or anxious, or unable to sleep at night because yourmind is troubled all the time - these days?Patient /04/2024Exercise Vital SignAnswerDate RecordedOn average, how many days [...] were you homeless or living in a snf (including now)?No04/05/2024Comments UnknownSex and Gender InformationValueDate RecordedSex Assigned at BirthNot on fileLegal JdjOneiqr73/15/2023 8:28 PM EDTGender LpaaoklwDjfknb97/08/2024 4:54 PM ESTSexual OrientationNot on filedocumented as of this encounter Plan of Treatment DateTypeDepartmentCare Team (Latest Contact Info)Eeiasvtsilm71/17/2026 2:40 PM ESTOffice Visit [facility] [address] [place] [address] Sonam Chavez, LYNDSAY [address] [place] [address] 10/15/2025 2:00 PM EDTOffice Visit [facility] [address] [place] [address] Katarzyna Leone NP [address] [place] [address] documented as of this encounter Visit Diagnoses Not on filedocumented in this encounter Care Teams Team MemberRelationshipSpecialtyStart DateEnd Date Katarzyna Leone NP [address] [place] [address] PCP - Denise Commercial10/31/20 Gus Reza DO [address] [place] [address] PCP - GeneralFamily Medicine12/08/22documented as of this encounter
--- OUTSIDE RECORDS SUMMARY | 2025-06-27 08:48 | XMS_ITS | Clinical Summary ---
Author Organization [facility] Address [address], [address] [place] [address] Care Team Providers Care Knitter Hand Name Role Phone Katarzyna Leone CHAMP - DUPLIGRAPH OPERATOR Primary Care Provider [phone] Allergies Active AllergyReactionsCriticalityNoted DateCommentsMethohexitalHivesHigh 09/04/20190151WtbgwvjubpPhclrLwnb41/03/2020PenicillinsOther (See Comments)09/08/2011 Stopped breathing NhkobdgzxSrgnrIcap05/03/2020 Medications MedicationSigDispense QuantityRefillsLast FilledStart DateEnd DateStatus aspirin [...] tablet 605Active Active Problems ProblemNoted DateDiagnosed DateHot fsbjgpd6606/01/2021bnormal liver enzymes 05/28/2021Neck pain02/09/2017Muscle spasm02/09/2017Partial epilepsy with impairment of consciousness, not kflsovhuaci13/17/2017Recurrent seizures 07/03/2016Memory loss01/06/20155149Eghcddy31/01/2014Hot flash, uamezkgyva30/15/2012 Partial epilepsy with impairment of consciousness, szdzigcmizr14/15/2012Spell of visual disturbance Overview (02/27/2017): Updating deleted diagnoses Endometrial thickening on ultrasound Encounters DateTypeDepartmentCare XjnwAklqkpccqdb44/22/2025 1:00 PM EDTTelemedicine [facility] Neurology [address] [place] [address] Ousmane Mariano MD 04/18/2025Transcribe Orders [facility] [address] [place] [address] Katarzyna Leone, CHAMP Serrano NP Syncope, unspecified syncope type (Primary Dx)04/17/2025 3:12 PM EDT - 04/17/2025 11:59 PM EDTHospital Encounter [facility] [address] [place] [address] Syncope and collapse (Primary Dx); Partial epilepsy with impairment of consciousness, intractable (HCC) Discharge Disposition: Home or Self Care04/17/2025 3:10 PM EDT - 04/19/2025 11:59 PM EDTHospital Encounter [facility] Cardiology [address] [place] [address] Discharge Disposition: Home or Self Carefrom Last [...] holidaysCommentsNoSex and Gender InformationValueDate RecordedSex Assigned at VyooaGnmpqj79/02/2021 12:59 PM EST Legal BotSztetg75/10/2013 11:42 AM ESTGender ZobrafchAsriwr15/02/2021 12:59 PM ESTSexual XmvstjcipoaEwxabedx23/02/2021 12:59 PM EST Last Filed Vital Signs Vital SignReadingTime TakenCommentsBlood Zbuvapeo339/8006 2:22 PM EDT Ncfmo9132 2:22 PM IKHYwhzmgnleht24.9 ??C (96.6 ??F)03/01/2022 12:13 PM EDTRespiratory Xtmw340403/01/2022 12:13 PM EDTOxygen Dgupfdtpci63%03/01/2022 12:13 PM EDTInhaled Oxygen Concentration--Nwntap80.1 kg (203 lb)11/21/2024 4:24 PM EDT Jaswaz298.9 cm (5' 1 )11/21/2024 4:24 PM EDTBody Mass Index38.36011/21/2024 4:24 PM EDT Plan of Treatment DateTypeDepartmentCare Team (Latest Contact Info)Prdbpksvbxs68/04/2025 [address] [place], [facility] Neurology [address] [place] [address] Ousmane Mariano MD [address] [place] [address] 4 month follow up labs seizures -[facility] MaintenanceDue DateLast DoneComments Depression Ypolqw3502/19/1966DTaP/Tdap/Td vaccine (1 - Tdap)1973Colonoscopy 1999FIT/FOBT: Average risk1999Sigmoidoscopy/CT colonography 1999Shingles vaccine (1 of 2)02/20/2004A1C test (Diabetic or Prediabetic) /, 02/06/20216327Tftfbk92/17/202508/, 03/22/2023, 02/20/2022, Additional history existsCOVID-19 Vaccine ( - season) 2025reast cancer btxatu23/, 04/26/2023, 04/23/2023, Additional history existsColorectal Cancer Gwisvz0804/30/2028Fecal-DNA (Cologuard): Average risk/Respiratory Syncytial Virus (RSV) or age 60 yrs+ (1 - 1-dose 75+ series)2029DEXA (modify frequency per FRAX score)Baqivpath48/02/2019, 11/01/2018Hepatitis C screenCompleted 01/14/2019Pneumococcal 50+ years SrmsbapUcpfadiur23/07/2021, 08/12/2019Diabetes brreqrGovyzfuoasey17/17/2024, 02/06/2021Flu zjsznlyCkttkhopy02/16/2025, 06/16/2024, 05/15/2023, Additional history existsHepatitis A vaccineAged [...] this topic Procedures Procedure NamePriorityDate/TimeAssociated DiagnosisCommentsCARBAMAZEPINE LEVEL, QSIOSQfklooj60/16/2025 3:41 PM EDT Partial epilepsy with impairment of consciousness, intractable (HCC) EXTENDED CARDIAC HOLTER MONITOR 8D-14D (OFFICE HOOKUP & IN-HOUSE ANALYSIS) Mwgivbd1404/17/2025 3:20 PM EDT Syncope and collapse [facility] DIGITAL SCREEN SELF REFERRAL W OR WO CAD LTQXHUWDKOujzsum51/22/2025 4:27 PM EDT Breast cancer screening by mammogram LIPID ABSMKDjmrefp06/17/2024 8:36 AM EDT HEMOGLOBIN P4FXnkuuob36/17/2024 8:36 AM EDT HEPATITIS PANEL, ZREOJCagnxvt44/15/2019 8:18 AM EDT DEXA BONE DENSITY AXIAL LGBSQELIYaugohy19/02/2019 3:24 PM EDT Post-menopausal from Last 3 Months or Most Recently Relevant to Health Maintenance Results * Carbamazepine Level, Total (04/17/2025 3:41 PM EDT)ComponentValueRef RangeTest MethodAnalysis TimePerformed AtPathologist SignatureCarbamazepine Lvl5.74.0 - 12.0 ug/mL04/17/2025 3:41 PM EDTMERCY LABORATORIESCarbamazepine Dose Amount Rcgmxyo5604/17/2025 3:41 PM EDMERC[facility] LABCarbamazepine Date Last DoseUNK^Unknown^L04/17/2025 3:41 PM [facility] LABCarbamazepine Dose TimeUNK^Unknown^L04/17/2025 3:41 PM [facility] LABSpecimen (Source)Anatomical Location / LateralityCollection Method / VolumeCollection TimeReceived TimeBloodBLOOD SPECIMEN / Unknown 04/17/2025 3:41 PM EDT04/17/2025 3:42 PM EDT Narrative Authorizing ProviderResult TypeResult StatusSubrahmanyam Chodisetty MDCHEMISTRY ORDERABLESFinal ResultPerforming OrganizationAddressCity/State/ZIP CodePhone Number [facility] [address] [place] [address], [facility] [phone] [facility] [address] [place] [address], [facility] [phone] * EXTENDED CARDIAC HOLTER MONITOR 8D-14D (OFFICE [...] study. ?? Authorizing ProviderResult TypeResult StatusRachel Fruth PROPERTY INSURANCE AGENT - NPCV CARDIAC DIAGNOSTIC ORDERABLESFinal Result * [facility] DIGITAL SCREEN SELF REFERRAL W [...] to the patient regarding the results. The [employer] recommends annual mammograms for women 40 years and older. Performing Facility: [place] [id number] Narrative 11/22/2024 9:03 AM EDT EXAMINATION: SCREENING [...] calcifications are stable. Authorizing ProviderResult TypeResult StatusRachel Fru PROPERTY INSURANCE AGENT - NPIMG MAMMOGRAPHY ORDERABLESFinal Result * Hemoglobin A1C (03/18/2024 8:36 AM EDT)ComponentValueRef RangeTest Method Analysis TimePerformed AtPathologist SignatureHemoglobin A1C5.84.0 - 6.0 % 03/18/2024 8:36 AM EDTMERCY LABORATORIESEstimated Avg Bsmsuly674oo/dL 03/18/2024 8:36 AM EDTMERCY LABORATORIESComment: The ADA and AACC recommend providing the estimated average glucose result to permit better patient understanding of their HBA1c result. Specimen (Source)Anatomical Location / LateralityCollection Method / Volume Collection TimeReceived Time03/18/2024 8:36 AM EDT03/18/2024 8:41 AM EDT Narrative Authorizing ProviderResult TypeResult StatusRachel Fruth PROPERTY INSURANCE AGENT - NPCHEMISTRY ORDERABLESFinal ResultPerforming OrganizationAddressCity/State/ZIP CodePhone Number [facility] [address] [place] [address], [facility] [phone] [facility] [place] [address] [place] [address] * Lipid Panel (03/18/2024 8:36 AM EDT)ComponentValueRef RangeTest MethodAnalysis TimePerformed AtPathologist SignatureCholesterol, Vnrye7385 - 199 mg/dL 03/18/2024 8:36 AM EDTMERCY LABORATORIESComment: Cholesterol Guidelines: <200 Desirable 200-240 ??Borderline >240 Undesirable HDL65>40 mg/dL03/18/2024 8:36 AM EDTMERCY LABORATORIESComment: HDL Guidelines: <40 Undesirable 40-59 ?Borderline >59 Desirable LDL Ygoicqmdair822 - 100 mg/dL03/18/2024 8:36 AM EDTMERCY LABORATORIESComment: LDL Guidelines: <100 Desirable 100-129 ?? Near to/above Desirable 130-159 ?? Borderline >159 Undesirable Direct (measured) LDL and calculated LDL are not interchangeable tests. Chol/HDL Ratio2. 8:36 AM EDTMERCY VGKYJJRJMJRNDpvnrfaykqwjz49<150 mg/dL03/18/2024 8:36 AM EDTMERCY LABORATORIESComment: Triglyceride Guidelines: <150 Desirable 150-199 ??Borderline 200-499 ??High >499 Very high Based on AHA Guidelines for fasting triglyceride, May 2012. OROG33jr/dL03/18/2024 8:36 AM EDTMERCY LABORATORIESSpecimen (Source)Anatomical Location / LateralityCollection Method / VolumeCollection TimeReceived Time 03/18/2024 8:36 AM EDT03/18/2024 8:41 AM EDT Narrative Authorizing ProviderResult TypeResult StatusRachel Fruth PROPERTY INSURANCE AGENT - NPCHEMISTRY ORDERABLESFinal ResultPerforming OrganizationAddressCity/State/ZIP CodePhone Number [facility] [address] [place] [address], [facility] [phone] [facility] [address] [place] [id number] [phone] * Hepatitis Panel, Acute (01/14/2019 8:18 AM EDT)ComponentValueRef RangeTest MethodAnalysis TimePerformed AtPathologist SignatureHepatitis B Surface Ag ZHBKDROUXIJTOOTEODQGLL06/15/2019 8:18 AM EDTMERCY LABORATORIESHepatitis C Ab HTIJKDUAJYSZCXAUQHULSL88/15/2019 8:18 AM EDGlowbl LABORATORIESComment: ? The hepatitis C procedure used [...] RNA by PCR. Hep B Core Ab, VaKAFMNTKXXPSJGIOZPLQIOZI18/15/2019 8:18 AM EDTMRASILIENT SYSTEMS LABORATORIES Hep A PtDNFMOBCXMVMWKSNMAPPDJFB47/15/2019 8:18 AM EDTMRASILIENT SYSTEMS LABORATORIESSpecimen (Source)Anatomical Location / LateralityCollection Method / VolumeCollection TimeReceived Time01/14/2019 8:18 AM EDT01/14/2019 8:19 AM EDT Narrative Authorizing ProviderResult TypeResult StatusRachel Fruth PROPERTY INSURANCE AGENT - NPIMMUNOLOGY ORDERABLESFinal ResultPerforming OrganizationAddressCity/State/ZIP CodePhone Number [facility] [address] [place], [place] [address] [phone] [facility] [address] [phone] * DEXA BONE DENSITY AXIAL SKELETON (11/01/2018 [...] left forearm and bilateral hips ??on a Eye Phone system. COMPARISON: None. HISTORY: ORDERING SYSTEM PROVIDED [...] left forearm and bilateral hips on a Eye Phone system. COMPARISON: None. HISTORY: ORDERING SYSTEM PROVIDED [...] WHO criteria. Authorizing ProviderResult TypeResult StatusRachel Fru PROPERTY INSURANCE AGENT - NPIMG DEXA ORDERABLESFinal Result from Last 3 Months or Most Recently Relevant to Health Maintenance Insurance * Guarantor: Becki Kaur TypeRelation to PatientDate of BirthPhone Billing AddressPersonal/ZisogdOjea1955 [id number] [address] * Guarantor: Becki Kaur TypeRelation to PatientDate of BirthPhone Billing AddressPersonal/LghtbbRxaa1955 [id number] [address] Advance Directives * Full Code (Latest Code Status on File) Date ActivatedDate Inactivated[facility]09/04/2019 11:30 AM09/04/2019 4:22 PM Care Teams Team MemberRelationshipSpecialtyStart DateEnd Date Katarzyna Leone APRN - DUPLIGRAPH OPERATOR PCP - GeneralNurse Practitioner01/14/19
--- OUTSIDE RECORDS SUMMARY | 2025-06-27 08:48 | XMS_ITS | Encounter Summary ---
Author Organization [facility] Address [address] [place] [address] Care Team Providers Care Welder/Fitter Name Role Phone Katarzyna Leone CROP CONSULTANT Unavailable [phone] Gus Reaz DO Primary Care Provider [phone] Reason for Visit * ReasonOnset DateCommentsabnormal CT06/20/2025 Encounter Details DateTypeDepartmentCare Team (Latest Contact Info)Miokzucoynn16/19/2025Telephone [facility] [address] [place] [address] Katarzyna Leone NP [address] [place] [address] Social History Tobacco [...] relatives?Once a week04/05/2024How often do you attend episcopalian or taoist services?More than 4 times per year04/05/2024o you belong to any clubs or organizations such as episcopalian groups, unions, fraternal or athletic bhargav ups, or school groups?Yes04/05/2024How often do you attend meetings of the clubs or organizations you belong to?More than 4 times per year04/05/2024re you , , , , never , or living with a partner? Gilvtbv4104/05/2024UDIT-CAnswerDate RecordedQ1: How often do you have a [...] hard at all04/05/2024HQ-2AnswerDate RecordedPatient Health Questionnaire-2 Score0 04/17/2025[facility] - Occupational Stress QuestionnaireAnswerDate RecordedDo you feel stress - tense, restless, nervous, or anxious, or unable to sleep at night because yourmind is troubled all the time - these days?Patient zdkoilcb17/04/2024Exercise Vital SignAnswerDate RecordedOn average, how many days [...] were you homeless or living in a senior care (including now)?04/05/2024Comments UnknownSex and Gender InformationValueDate RecordedSex Assigned at BirthNot on fileLegal QqmQoekwv61/15/2023 8:28 PM EDTGender MkbcfligCyufwr49/08/2024 4:54 PM ESTSexual OrientationNot on filedocumented as of this encounter Miscellaneous Notes * Telephone Encounter - Dionna Taylor LPN - 06/25/2025 11:17 AM EST Spoke with pt, reports she is scheduled for wed at 9am at [facility] * Telephone Encounter - Dionna Taylor LPN - 06/22/2025 1:59 PM EST Vm left for pt to call office. Faxed order to [facility] unless pt would like to complete elsewhere. [...] PM EST I have a CT from [facility] which is abnormal I just want to make sure she has follow up with someoneregarding this. They want a pelvic US with transvaginal for mass if she does not have follow up. documented in this encounter Plan of Treatment DateTypeDepartmentCare Team (Latest Contact Info)Haqqciucxmr92/17/2026 2:40 PM ESTOffice Visit [facility] [address] [place] [address] Sonam Chavez, LYNDSAY [address] [place] [address] 10/15/2025 2:00 PM EDTOffice Visit [facility] [address] [place] [address] Katarzyna Leone NP [address] [place] [address] NameTypePriorityAssociated DiagnosesOrder ScheduleUS pelvis transvaginalImaging STAT Pelvic mass in female Expected: 06/22/2025, Expires: 06/22/2026documented as of this encounter Visit Diagnoses Diagnosis Pelvic mass in female- Primary documented in this encounter Care Teams Team MemberRelationshipSpecialtyStart DateEnd Date Katarzyna Leone NP [address] [place] [address] PCP - [place] [facility]10/31/20 Gus Rzea DO [address] [place] [address] PCP - GeneralFamily [facility]12/08/22documented as of this encounter
--- NOTE | 2025-06-27 08:53 | US_ITS ---
The [address] [address] Patient Name: JUAN J DAMON MRN: [id number] date: 1955 Sex: F Assigned Patient Location: US Current Patient Location: Accession/Order Number: [id number] Exam Date: 06/27/2025 09:00 Report Date: 06/27/2025 10:04 At the request of: DANDRE SHAFFER Procedure: US pelvis w/ transvaginal ULTRASOUND PELVIS WITH TRANSVAGINAL COMPARISON: CT 06/20/2025 CLINICAL DATA: Abnormal CT Real-time ultrasound evaluation the pelvis was performed utilizing both a transabdominal and transvaginal approach. TRANSABDOMINAL: Estimated uterine size is approximately 7.2 x 2.9 x 4.4 cm. The endometrial lining measures approximately 4 mm in thickness. The myometrium is heterogeneous. There is a lobulated hypoechoic area adjacent to the uterus on the right. It is uncertain if this is an exophytic fibroid. Enlarged ovary is also possible. TRANSVAGINAL: Transvaginal scans were performed to better evaluate the uterus and adnexa. By this approach, the endometrial lining is estimated 5 - 6 mm. There is a lobulated hypoechoic area adjacent to the uterus on the right measuring 5.9 x 3.2 x 4.3 cm in size. There is also a smaller heterogeneous hypoechoic area adjacent to the uterus on the left superiorly measuring 2.3 x 2.4 x 2.2 cm. It is difficult to differentiate exophytic fibroids from potentially ovaries. Separate ovaries were not identified. There are no obvious follicles or cysts. If the right sided finding is an ovary, it is enlarged. There is no free fluid. US/US pelvis w/ transvaginal IMPRESSION: HYPOECHOIC AREAS WITHIN THE ADNEXAL REGIONS BILATERALLY, RIGHT LARGER THE LEFT. DIFFERENTIAL INCLUDES OVARIES VERSUS EXOPHYTIC FIBROIDS. NO ADNEXAL CYSTS. Impression dictated by: Moni Bermeo M.D. 06/27/2025 10:04 AM Dictation Location: [place] [address] Electronically authenticated by: [id number] Y Date: 06/27/2025 10:04
== END 2025-06-27 08:45 | disposition home or self-care (01) ==
LOC: US 08:46
PROVIDERS: PCP Nurse Practitioner; Visit Provider Nurse Practitioner
DX: R19.00 Intra-abdominal and pelvic swelling, mass and lump, unspecified site (principal)
CPT/HCPCS: 76830; 76856